=== PATIENT | female | born 1970 | race Two or more races ===

== ENCOUNTER 2019-07-16 19:06 | Inpatient (IN) | payer BC, OTHER ==
[~2019-07-16] VITALS: Ht 160 cm; Wt 153.3 kg
--- NOTE | 2019-07-16 19:28 | NUR ---
Note undone in EDM - 07/16/19 at 1933 by THAIS MARIA ISABEL FROM [facility]. TO ER BED 9. AAOX3. WEAK. SOB. C/O L BREAST WOUND BLEEDING. AREA UNDER L BREAST NOTED RED AND MASERATED WITH OPEN WOUND WITH SLIGHT SLOUGH. NOTED ACTIVE BLEEDING. ABDOMINAL PADS PLACED AND PRESSURE. PT REPORTS THAT THE INJURY HAPPENED 2 WEEKS AGO. PT REPORTS PAIN ON HANDS, BACK AND LEGS. PT HAS A F/C UPON ARRIVAL. BILAT LOWER EXT EDEMA NOTED. WITH BANDAGE ON R FOOT. AT BEDSIDE FOR EVAL/ PT PLACED ON MONITOR
[2019-07-16] MEDS ORDERED: IV NS 0.9% 1,000 ML BAG IV ONE (19:30)
[2019-07-16] MEDS ORDERED: MORPHINE SULFATE INJ 2 MG/ML DISP.SYRIN IV ONE (19:30)
--- NOTE | 2019-07-16 19:33 | NUR ---
MARIA ISABEL FROM [facility]. TO ER BED 9. AAOX3. WEAK. SOB. C/O L BREAST WOUND BLEEDING. AREA UNDER L BREAST NOTED RED AND MASERATED WITH OPEN WOUND WITH SLIGHT SLOUGH. NOTED ACTIVE BLEEDING. ABDOMINAL PADS PLACED AND PRESSURE. PT REPORTS THAT THE INJURY HAPPENED 2 WEEKS AGO. PT REPORTS PAIN ON HANDS, BACK AND LEGS. PT HAS A F/C UPON ARRIVAL. BILAT LOWER EXT EDEMA NOTED. WITH BANDAGE ON R FOOT. AT BEDSIDE FOR EVAL/ PT PLACED ON MONITOR
[2019-07-16] MEDS ORDERED: MORPHINE SULFATE INJ 2 MG/ML DISP.SYRIN ONE (19:35)
[2019-07-16] MEDS ORDERED: GELATIN SPONGE,ABSORBABLE 1 SPONGE SPONGE TP ONE (19:51)
[2019-07-16 19:55] LABS: BASOPHILS # (AUTO) 0.2 /CMM (0.0-0.2); BASOPHILS % (AUTO) 1.3 % (0.0-2.0); HEMATOCRIT 24 % (33-45); HEMOGLOBIN 8.2 g/dL (11.5-14.8); LYMPHOCYTES # (AUTO) 2.3 /CMM (0.8-4.8); LYMPHOCYTES % (AUTO) 20.6 % (20.0-44.0); MEAN CORPUSCULAR HGB CONC 34 g/dl (31.0-36.0); MEAN CORPUSCULAR VOLUME 100 fL (82-100); MONOCYTES # (AUTO) 1.6 /CMM (0.1-1.30); MONOCYTES % (AUTO) 14.3 % (2.0-12.0); NEUTROPHILS # (AUTO) 5.8 /CMM (1.8-8.9); NEUTROPHILS % (AUTO) 51.8 % (43.0-81.0); PLATELET COUNT (AUTO) 256 /CMM (150-450); RED BLOOD CELL COUNT(AUTO) 2.43 MIL/uL (4.0-5.2); WHITE BLOOD COUNT (AUTO) 11.2 K/uL (4.3-11.0)
[2019-07-16] MEDS ORDERED: ONDANSETRON HCL/PF 4 MG/2 ML VIAL ONE (20:00)
[2019-07-16] MEDS ORDERED: ONDANSETRON HCL/PF 4 MG/2 ML VIAL IV ONE (20:00)
[2019-07-16 20:04] LABS: ALBUMIN 2.7 g/dL (3.4-5.0); BILIRUBIN,TOTAL 1.6 mg/dL (0.2-1.0); CALCIUM, SERUM 9.4 mg/dL (8.5-10.1); CREATININE 3.3 mg/dL (0.6-1.3); POTASSIUM 5.8 mmol/L (3.5-5.1); TOTAL PROTEIN, SERUM 6.5 g/dL (6.4-8.2)
[2019-07-16] MEDS ORDERED: LIDOCAINE 1%-EPI 1:100,000 20 ML VIAL ONE (20:08)
[2019-07-16 20:10] VITALS: BP 102/82
--- NOTE | 2019-07-16 20:20 | NUR ---
AT BEDSIDE FOR SUTURE OF WOUND FOR BLEEDING CONTROL.
[2019-07-16] MEDS ORDERED: IV NS 0.9% 500 ML BAG IV ONE (20:30)
[2019-07-16] MEDS ORDERED: CLINDAMYCIN IV RTU IN D5W 900 MG/50 ML PIGGYBACK IV ONE (20:30)
--- NOTE | 2019-07-16 20:49 | NUR ---
PT BACK FROM CT.
[2019-07-16] MEDS ORDERED: ACETAMINOPHEN 325 MG TABLET PO ONE (21:00)
--- NOTE | 2019-07-16 21:26 | NUR ---
CALLED [facility], PAGED PRAVIN SAENZ NP
[2019-07-16 21:28] LABS: EOSINOPHILS % (MANUAL) 10 % (0-4); LYMPHOCYTES % (MANUAL) 20 % (16-48); MONOCYTES % (MANUAL) 9 % (0-11.0); NEUTROPHILS % (MANUAL) 58 (42-76); REACTIVE LYMPHOCYTES 3 % (0-0)
[2019-07-16] MEDS ORDERED: CLINDAMYCIN 900 MG/6 ML VIAL ONE (21:35)
[2019-07-16] MEDS ORDERED: IV NS 0.9% 1,000 ML IV PRN (21:38)
--- NOTE | 2019-07-16 21:50 | NUR ---
Bethany ravi in [facility] - 07/16/19 at 2154 by JOEY [phone] MARCY
[2019-07-16] MEDS ORDERED: MAGNESIUM HYDROXIDE 30 ML UDC PO PRN (22:00)
[2019-07-16] MEDS ORDERED: MAG HYDROX/AL HYDROX/SIMETH 30 ML UDC PO PRN (22:00)
--- NOTE | 2019-07-16 22:03 | NUR ---
report given to elma dotson for keyanna. pt to 208
--- NOTE | 2019-07-16 22:15 | NUR ---
PT TRANSPORTED TO UNIT WITH EMT AND RN AT BEDSIDE. NAD NOTED DURING TRANSPORT. PT STABLE FOR TRANSPORT TO UNIT.
[2019-07-16] MEDS ORDERED: VANCOMYCIN 1 GM in IV D5W 250 ML IV ONE (22:30)
[2019-07-16] MEDS ORDERED: VANCOMYCIN 1 GM VIAL ONE (22:58)
[2019-07-16] MEDS ORDERED: ALBU2.5V11 MC (23:29)
[2019-07-16] MEDS ORDERED: SODI15OR6 PO (23:29)
[2019-07-16] MEDS ORDERED: DOCU-141 PO (23:29)
[2019-07-16] MEDS ORDERED: MULT1TAB73 PO (23:29)
[2019-07-16] MEDS ORDERED: NEOM28.3 TP (23:29)
[2019-07-16] MEDS ORDERED: FERR325T23 PO (23:29)
[2019-07-16] MEDS ORDERED: NYST15PO4 TP (23:29)
[2019-07-16] MEDS ORDERED: DIPH-530 PO (23:29)
[2019-07-16] MEDS ORDERED: ACET325C7 PO (23:29)
[2019-07-16] MEDS ORDERED: HYDR-4384 PO (23:29)
[2019-07-16] MEDS ORDERED: ASCO500T9 PO (23:29)
[2019-07-16] MEDS ORDERED: ONDA4TAB5 PO (23:29)
[2019-07-16] MEDS ORDERED: ZINC OXIDE PO (23:29)
[2019-07-16] MEDS ORDERED: HEPA100D33 SQ (23:29)
--- NOTE | 2019-07-17 00:03 | NUR ---
RN MS ADMITTING NOTES RECEIVED PT FROM ER VIA MIGUEL, AWAKE ALERT ORIENTED X4, BREATHING EVEN AND UNLABORED ON ROOM AIR. COMPLAINING OF GENERALIZED PAIN WITH MOVEMENT. IV ACCESS ON THE L HAND 22G, WOUNDS PICTURED AND DOCUMENTED. BED IN LOWEST LOCKED POSITION, CALL LIGHT WITHIN REACH AT ALL TIME. WILL CONTINUE TO MONITOR FREQUENTLY
[2019-07-17] MEDS ORDERED: Medication Not On Formulary EA (Acetaminophen (Tylenol) 650 MG) PO PRN (01:00)
[2019-07-17] MEDS ORDERED: HYDROCODONE/APAP 5/325MG 1 EACH TABLET PO PRN (01:00)
[2019-07-17] MEDS ORDERED: DOCUSATE SODIUM 250 MG CAPSULE PO PRN (01:00)
--- NOTE | 2019-07-17 06:16 | NUR ---
RN MS CLOSING NOTES PT REMAINS AWAKE ALERT ORIENTED X4, BREATHING EVEN AND UNLABORED ON ROOM AIR. NO COMPLAINT OF PAIN OR DISCOMFORT AT THIS TIME. IV ACCESS ON THE L HAND 22G NS @75ML/HR . BED IN LOWEST LOCKED POSITION, CALL LIGHT WITHIN REACH AT ALL TIME. WILL ENDORSE TO DAY NURSE FOR JOSE ROBERTO.
[2019-07-17 06:18] LABS: BASOPHILS # (AUTO) 0.1 /CMM (0.0-0.2); BASOPHILS % (AUTO) 1.2 % (0.0-2.0); EOSINOPHILS % (AUTO) 14.6 % (0.0-6.0); HEMATOCRIT 22 % (33-45); HEMOGLOBIN 7.6 g/dL (11.5-14.8); LYMPHOCYTES # (AUTO) 2.1 /CMM (0.8-4.8); LYMPHOCYTES % (AUTO) 21.3 % (20.0-44.0); MEAN CORPUSCULAR HGB CONC 34 g/dl (31.0-36.0); MEAN CORPUSCULAR VOLUME 101 fL (82-100); MONOCYTES # (AUTO) 1.6 /CMM (0.1-1.30); MONOCYTES % (AUTO) 16.5 % (2.0-12.0); NEUTROPHILS # (AUTO) 4.5 /CMM (1.8-8.9); NEUTROPHILS % (AUTO) 46.4 % (43.0-81.0); PLATELET COUNT (AUTO) 223 /CMM (150-450); RED BLOOD CELL COUNT(AUTO) 2.18 MIL/uL (4.0-5.2); WHITE BLOOD COUNT (AUTO) 9.7 K/uL (4.3-11.0)
[2019-07-17] MEDS ORDERED: diphenhydrAMINE HCL 25 MG CAPSULE PO PRN (06:30)
[2019-07-17 06:38] LABS: APPEARANCE,URINE SL CLOUDY (CLEAR); BILIRUBIN,URINE NEGATIVE (NEGATIVE); BLOOD, URINE 2+ Ery/uL (NEGATIVE); COLOR,URINE YELLOW (YELLOW); KETONES,URINE NEGATIVE (NEGATIVE); LEUKOCYTE ESTERASE ,URINE 3+ (NEGATIVE); NITRITE, URINE NEGATIVE (NEGATIVE); PROTEIN,URINE NEGATIVE (NEGATIVE); UGLUCOSE NEGATIVE (NEGATIVE); UROBILINOGEN,URINE 0.2 EU/dL (0.2)
[2019-07-17 06:43] LABS: CALCIUM, SERUM 8.7 mg/dL (8.5-10.1); MAGNESIUM 2.7 mg/dL (1.8-2.4); PHOSPHORUS 4.7 mg/dL (2.5-4.9); POTASSIUM 5.5 mmol/L (3.5-5.1)
[2019-07-17 06:44] LABS: THYROID STIMULATING HORMONE 5.067 uIU/mL (0.358-3.74)
[2019-07-17 06:51] LABS: BACTERIA,URINE Many /HPF (None Seen); SQUAMOUS EPITHELIAL CELL,UR Moderate /HPF (None Seen); WBC,URINE 81-100 /HPF (0-3)
[2019-07-17] MEDS ORDERED: FEE PK DOSING 1 MIN EA MC ONE (06:59)
--- NOTE | 2019-07-17 07:44 | NUR ---
MS RN OPENING NOTES PATIENT IN BED ALERT AND ORIENTED X4. AFEBRILE WITH NO S/S O DISTRESS OBSERVED. BREATHING REGULAR AND UNLABORED IN ROOM AIR. LEFT HAND IV G20 INTACT AND PATENT, INFUSING WELL WITH NO BLEEDING OR S/S OF INFILTRATION/INFECTION. KUO CATH INTACT, DRAINING WELL WITH CLEAR YELLOW URINE, MODERATE IN AMOUNT. WILL CONTINUE TO MONITOR FOR POSSIBLE BLOOD TRANSFUSION TO KEEP HGB >8 AND MORNING LABS.
--- NOTE | 2019-07-17 08:00 | NUR ---
RN NOTES RECEIVED PATIENT IN THE BED A/O X3. PATIENT HAS MORBID OBESITY, TOTAL CARE, HAS NO ACUTE RESPIRATORY DISTRESS, V/S TAKEN STABLE. PATIENT WAS COMPLAINING OF PAIN GENERALIZED 9/10 PER PAIN SCALE. ALSO HAS GENERALIZED EDEMA, WOUND ON LEFT BREAST WITH STITCHES COVERED WITH DRY DRESSING. INFUSING NS AT LEFT HAND INTACT 100 ML/HR . ASSIST PATIENT TURN AND REPOSTION Q 2 HR. CONTINUED MONITORING.
[2019-07-17 08:29] VITALS: BP 102/52
[2019-07-17 10:03] LABS: HEMOGLOBIN 7.6 g/dL (11.5-14.8)
[2019-07-17] MEDS: FERROUS SULFATE (325 MG) 325 MG/TAB TABLET PO SCH (10:06)
[2019-07-17] MEDS: ASCORBIC ACID 500 MG TABLET PO SCH (10:06)
[2019-07-17] MEDS: HYDROCODONE/APAP 5/325MG 1 EACH TABLET PO PRN ×2 (10:07→15:18)
--- NOTE | 2019-07-17 10:07 | NUR ---
rn notes administered narco 5/325 mg po prn for generalized pain 07/18 per patient request, v/s taken bp102/52, p-103. continued monitoring.
[2019-07-17] MEDS: PANTOPRAZOLE 40 MG TABLET.DR PO SCH (10:10)
[2019-07-17] MEDS: NEOMY SULF/BACITRAC ZN/POLY 15 GM TUBE TP SCH ×2 (10:11→17:20)
[2019-07-17] MEDS: NYSTATIN TOP POWDER 15 GM BOTTLE TP SCH ×3 (10:11→17:20)
--- NOTE | 2019-07-17 11:47 | NUR ---
WOUND CARE CONSULT: PT PRESENTS WITH DRY RESOLVING BLISTER TO RT DORSAL FOOT, DRY SCAB PROXIMAL TO RT ANKLE, LEFT BREAST REDNESS WITH WOUND WHICH HAS A SUTURE, STAGE 2 ULCERS TO SACRUM AND LEFT HIP, LEFT ABDOMINAL REDNESS WITH MOIST SKIN, ALL PRESENT ON ADMISSION. RECOMMEND SURGICAL CONSULT. DR POON NOTIFIED OF CONSULT REQUEST. BARIMAX ETS AIR BED ORDERED. SKIN PROTECTION RECOMMENDATIONS DISCUSSED WITH NURSING STAFF. DEFER TO SURGICAL TEAM FOR WOUND TREATMENT PLAN. WILL SEE PRN. IN AGREEMENT WITH PLAN OF CARE. AYAAN REYES NOTED. Addendum: 07/17/19 at 1149 by JOHN EUGENE WNDNU Amended: Links added.
[2019-07-17] MEDS ORDERED: PIPERACILLIN /TAZOBACTAM 2.25 G in IV D5W 50 ML IV SCH (13:00)
--- NOTE | 2019-07-17 13:00 | NUR ---
RN NOTES MEDICATION WERE ADMINISTERED FOR PAIN EFFECTIVE, SEEN PATIENT BY WOUND CAROLYNE ULLOA, AND WOUND NURSE, ADMINISTERED SCHEDULED MEDICATION, ASSIST PATIENT TURN AND REPOSTION Q 2 HR, DRESSING CHANGED. CONTINUED MONITORING.
[2019-07-17 13:10] LABS: CREATININE, URINE 120.5 MG/DL (30.0-125.0); URINE SODIUM, RANDOM < 5 mmol/l (40-220); URINE TOTAL PROTEIN 32.6 mg/dL (0-11.9)
[2019-07-17] MEDS: IV NS 0.9% 1,000 ML IV PRN (14:11)
[2019-07-17] MEDS: CLOTRIMAZOLE 1% 15 GM TUBE TP SCH ×2 (14:13→17:21)
[2019-07-17] MEDS: Z GUARD REMEDY 2 OZ OINT TP PRN (14:13)
--- NOTE | 2019-07-17 15:18 | NUR ---
RN NOTES ADMINISTERED NARCO 5/325 PO PRN FOR GENERALIZED PAIN 06/17 PER PATIENT REQUEST, V/S TAKEN BP-103/50, 98, R-19, CONTINUED MONITORING.
[2019-07-17 17:16] VITALS: BP 103/47
--- NOTE | 2019-07-17 18:30 | NUR ---
RN NOTES SEEN PATIENT BY FOOT Dr. ALVARADO, AND PACKAGING MECHANIC Dr LEONARD. MEDICATION WERE ADMINISTERED FOR PAIN EFFECTIVE. ASSIST TURN AND REPOSITION 2 HR, ADMINISTERED SCHEDULED MEDICATION, F/C DRAMING YELLOW OUTPUT, DVT PUMP ON INFUSIN NS AT 75 ML/HR ON LEFT HAND INTACT. CALL LIGHT WITHIN TO REACH. GET BERIMAXX II BED AT THIS TIME WILL TRANSFER PATIENT ON IT. ENDORSED ONCOMING NURSE FOLLOW PLAN OF CARE.
--- NOTE | 2019-07-17 19:15 | NUR ---
MS/RN OPENING NOTES PT RECEIVED RESTING COMFORTABLY IN BED. A/OX4. ON ROOM AIR, BREATHING EVEN AND UNLABORED. DENIES SOB AND PAIN AT THIS TIME. IV TO LEFT HAND RUNNING IVF ORDERED. KUO IN PLACE DRAINING TO GRAVITY. HOB ELEVATED. BILAT. UPPER SIDE RAILS IN PLACE. BED IN LOW/LOCKED POSITION WITH CALL LIGHT IN REACH. WILL CONTINUE TO MONITOR
--- NOTE | 2019-07-17 19:59 | NUR ---
MS/RN NOTES DR. GIRON AT BEDSIDE FOR ASSESSMENT. WITH VERBAL ORDERS FOR GABAPENTIN 300MG BID STARTING TOMORROW AND GABAPENTIN 300MG ONCE TONIGHT. ORDERS READBACK FOR VERIFICATION
[2019-07-17 20:00] VITALS: BP 94/44
[2019-07-17] MEDS ORDERED: GABAPENTIN 300 MG CAPSULE PO ONE (20:00)
[2019-07-17] MEDS: CEFEPIME 1 GM in IV D5W 50 ML IV SCH (21:26)
--- NOTE | 2019-07-17 22:06 | NUR ---
MS/RN NOTES PT MOVED TO BARIATRIC BED
[2019-07-17] MEDS ORDERED: VANCOMYCIN 1 GM in IV D5W 250 ML IV SCH (23:00)
[2019-07-18] MEDS: IV NS 0.9% 1,000 ML IV PRN ×2 (06:30→18:13)
[2019-07-18 06:36] LABS: BASOPHILS # (AUTO) 0.2 /CMM (0.0-0.2); BASOPHILS % (AUTO) 1.8 % (0.0-2.0); EOSINOPHILS % (AUTO) 16.7 % (0.0-6.0); HEMATOCRIT 23 % (33-45); HEMOGLOBIN 7.6 g/dL (11.5-14.8); LYMPHOCYTES # (AUTO) 2.5 /CMM (0.8-4.8); LYMPHOCYTES % (AUTO) 23.1 % (20.0-44.0); MEAN CORPUSCULAR HGB CONC 34 g/dl (31.0-36.0); MEAN CORPUSCULAR VOLUME 102 fL (82-100); MONOCYTES # (AUTO) 1.7 /CMM (0.1-1.30); MONOCYTES % (AUTO) 15.8 % (2.0-12.0); NEUTROPHILS # (AUTO) 4.7 /CMM (1.8-8.9); NEUTROPHILS % (AUTO) 42.6 % (43.0-81.0); PLATELET COUNT (AUTO) 232 /CMM (150-450); RED BLOOD CELL COUNT(AUTO) 2.24 MIL/uL (4.0-5.2)
[2019-07-18 06:52] LABS: ALBUMIN 2.7 g/dL (3.4-5.0); BILIRUBIN,TOTAL 1.6 mg/dL (0.2-1.0); CALCIUM, SERUM 8.6 mg/dL (8.5-10.1); CREATININE 3.3 mg/dL (0.6-1.3); MAGNESIUM 2.6 mg/dL (1.8-2.4); POTASSIUM 5.5 mmol/L (3.5-5.1); TOTAL PROTEIN, SERUM 6.3 g/dL (6.4-8.2)
--- NOTE | 2019-07-18 06:53 | NUR ---
MS/RN CLOSING NOTES PT ASLEEP, A/OX4. PLACED ON 2LPM O2 VIA NC FOR SOB AND BREATHING TX GIVEN. BREATHING NOW IS EVEN AND UNLABORED. IN NO ACUTE DISTRESS. DENIES PAIN AT THIS TIME. KUO IN PLACE AND DRAINING TO GRAVITY. IV TO LEFT HAND PATENT AND INTACT RUNNING IVF ORDERED. NO SIGNIFICANT CHANGES OVERNIGHT. WOUND CARE PROVIDED ORDERED. BED IN LOW/LOCKED POSITION WITH CALL LIGHT IN REACH. HOB ELEVATED FOR MAXIMAL LUNG EXPANSION. SIDE RAILS UPX3. ALL NEEDS MET AND ATTENDED. WILL ENDORSE TO DAY SHIFT RN JOSE ROBERTO.
[2019-07-18] MEDS: PANTOPRAZOLE 40 MG TABLET.DR PO SCH (07:30)
--- NOTE | 2019-07-18 07:48 | NUR ---
MS RN NOTES PATIENT RECEIVED RESTING INSIDE ROOM. AWAKE, ALERT AND ORIENTED X 4, VERBALLY RESPONSIVE AND RESPONDS TO VERBAL AND TACTILE STIMULI. NO ACUTE DISTRESS NOTED AT THIS TIME. PATIENT NPO AT THIS TIME. AWAITING US ABD, PLACED CALL TO ULTRASOUND DEPT TO OBTAINED SCHEDULED AND LEFT MESSAGE. KUO CATH IN PLACE WITH YELLOW URINE OUTPUT NOTED ON COLLECTING BAG. SAFETY PRECAUTIONS IN PLACE. WILL CONTINUE TO MONITOR. BED LOCKED AND IN LOW POSITION. BILATERAL UPPER SIDE RAILS UP AND LOCKED. MAINTAINED ASPIRATION PRECAUTIONS. CALL LIGHT WITHIN EASY REACH
[2019-07-18 08:00] VITALS: BP 102/48
[2019-07-18] MEDS: GABAPENTIN 300 MG CAPSULE PO SCH ×2 (09:00→16:33)
[2019-07-18] MEDS: FERROUS SULFATE (325 MG) 325 MG/TAB TABLET PO SCH (09:00)
[2019-07-18] MEDS: ASCORBIC ACID 500 MG TABLET PO SCH (09:00)
--- NOTE | 2019-07-18 09:18 | NUR ---
MS RN NOTES US TECH AT BEDSIDE
--- NOTE | 2019-07-18 09:28 | NUR ---
MS RN NOTES PLACED CALL TO LAB FOR SPECIMEN EMERGENCY DEPARTMENT AIDE
[2019-07-18 09:40] LABS: EOSINOPHILS % (MANUAL) 18 % (0-4); LYMPHOCYTES % (MANUAL) 28 % (16-48); MONOCYTES % (MANUAL) 11 % (0-11.0); NEUTROPHILS % (MANUAL) 43 (42-76)
[2019-07-18] MEDS: CLOTRIMAZOLE 1% 15 GM TUBE TP SCH ×2 (10:02→16:39)
[2019-07-18] MEDS: NEOMY SULF/BACITRAC ZN/POLY 15 GM TUBE TP SCH ×2 (10:02→16:39)
[2019-07-18] MEDS: NYSTATIN TOP POWDER 15 GM BOTTLE TP SCH ×3 (10:02→16:39)
--- NOTE | 2019-07-18 11:29 | NUR ---
MS RN NOTES PATIENT SEEN AND EXAMINED BY DR ERAZO. MADE AWARE OF PATIENT RECORDS FROM [facility] ARE IN PATIENT'S CHART. ALSO MADE AWARE THAT US ABD IS ALREADY DONE AND RESULTED. WITH OK FROM DR ERAZO TO RESUME PREVIOUS DIET. ORDER NOTED AND CARRIED OUT. WILL CONTINUE TO MONITOR
[2019-07-18] MEDS: HYDROCODONE/APAP 5/325MG 1 EACH TABLET PO PRN (14:58)
[2019-07-18 16:00] VITALS: BP 99/40
[2019-07-18] MEDS: LACTOBACILLUS RHAMNOSUS GG 1 EACH CAP.SPRINK PO SCH (16:33)
--- NOTE | 2019-07-18 18:53 | NUR ---
MS RN NOTES PATIENT RESTING INSIDE ROOM. AWAKE, ALERT AND ORIENTED X 4, VERBALLY RESPONSIVE AND RESPONDS TO VERBAL AND TACTILE STIMULI. NO ACUTE DISTRESS. NO C/O PAIN. PATIENT KEPT CLEAN, DRY AND COMFORTABLE. PATIENT KEPT CLEAN, DRY AND COMFORTABLE. KUO CATHETER IN PLACE WITH DARK YELLOW URINE OUTPUT NOTED ON COLLECTING BAG. WILL ENDORSE TO INCOMING SHIFT FOR JOSE ROBERTO. BED LOCKED AND IN LOW POSITION. BILATERAL UPPER SIDE RAILS UP AND LOCKED. CALL LIGHT WITHIN EASY REACH
[2019-07-18 19:00] VITALS: BP 87/37
[2019-07-18] MEDS: ACETAMINOPHEN 325 MG TABLET PO PRN (19:40)
[2019-07-18 19:47] LABS: CREATININE, URINE 131.5 MG/DL (30.0-125.0); URINE SODIUM, RANDOM < 5 mmol/l (40-220); URINE TOTAL PROTEIN 34.7 mg/dL (0-11.9)
--- NOTE | 2019-07-18 19:52 | NUR ---
RN OPENING NOTES RECEIVED REPORT FROM PAMELA MURPHY. PATIENT A/A/O X3, ABLE TO VERBALIZE NEEDS. BREATHING EVEN & UNLABORED, TOLERATING O2 @ 2LPM VIA NC. DENIES ANY SOB OR DIFFICULTY BREATHING. RADIAL PULSES PRESENT. LEFT HAND IV #20 INTACT & PATENT W/ DRESSING CDI & IVF NS INFUSING WELL @ 100 ML/HR. DENIES ANY PAIN OR DISCOMFORT @ THIS TIME. SAFETY MEASURES IN PLACE W/ SIDE RAILS UP & BED ALARM ON. CALL LIGHT PLACED WITHIN REACH & INSTRUCTED TO CALL FOR ASSISTANCE. WILL CONTINUE TO MONITOR.
--- NOTE | 2019-07-18 19:55 | NUR ---
RN NOTES PRN TYLENOL GIVEN FOR FEVER.
[2019-07-18 20:00] VITALS: BP 87/37
[2019-07-18 20:03] VITALS: BP_SYST 166; BP_SYST 87; BP_DIAS 37; BP_DIAS 91
[2019-07-18 20:06] LABS: APPEARANCE,URINE CLOUDY (CLEAR); BILIRUBIN,URINE NEGATIVE (NEGATIVE); BLOOD, URINE 3+ Ery/uL (NEGATIVE); COLOR,URINE YELLOW (YELLOW); KETONES,URINE NEGATIVE (NEGATIVE); LEUKOCYTE ESTERASE ,URINE 3+ (NEGATIVE); NITRITE, URINE NEGATIVE (NEGATIVE); PH,URINE 5.5 (5.0-8.0); PROTEIN,URINE NEGATIVE (NEGATIVE); UGLUCOSE NEGATIVE (NEGATIVE); UROBILINOGEN,URINE 0.2 EU/dL (0.2)
[2019-07-18 20:15] VITALS: BP 92/42
[2019-07-18] MEDS: ALBUTEROL FS 2.5 MG/3 ML VIAL.NEB NEB PRN (20:18)
--- NOTE | 2019-07-18 20:30 | NUR ---
RN NOTES RE CHECKED TEMP AFTER PRN TYLENOL GIVEN & COOLING MEASURES IN PLACE. TEMP = 99.2.
[2019-07-18 20:31] LABS: BACTERIA,URINE Many /HPF (None Seen); RBC,URINE 21-50 /HPF (0-2); SQUAMOUS EPITHELIAL CELL,UR Few /HPF (None Seen); WBC,URINE 51-80 /HPF (0-3)
[2019-07-18 20:32] LABS: URINE AMORPHOUS URATE Moderate /HPF (None Seen)
[2019-07-18] MEDS: CEFEPIME 1 GM in IV D5W 50 ML IV SCH (20:42)
[2019-07-18 21:08] LABS: EOSINOPHIL,URINE Rare
[2019-07-18] MEDS ORDERED: CLINDAMYCIN 900 MG/6 ML VIAL ONE (21:33)
[2019-07-18] MEDS: CLINDAMYCIN 600 MG in IV D5W 50 ML IV SCH (21:56)
[2019-07-19] VITALS (8 sets, daily range): BP systolic 74–96; BP diastolic 25–53
[2019-07-19] MEDS ORDERED: CLINDAMYCIN 900 MG/6 ML VIAL ONE (05:21)
[2019-07-19] MEDS: CLINDAMYCIN 600 MG in IV D5W 50 ML IV SCH ×2 (05:39→12:20)
[2019-07-19 06:12] LABS: BASOPHILS # (AUTO) 0.1 /CMM (0.0-0.2); BASOPHILS % (AUTO) 1.2 % (0.0-2.0); EOSINOPHILS % (AUTO) 18.9 % (0.0-6.0); HEMATOCRIT 22 % (33-45); HEMOGLOBIN 7.3 g/dL (11.5-14.8); LYMPHOCYTES # (AUTO) 2.5 /CMM (0.8-4.8); LYMPHOCYTES % (AUTO) 22.7 % (20.0-44.0); MEAN CORPUSCULAR HGB CONC 33 g/dl (31.0-36.0); MEAN CORPUSCULAR VOLUME 103 fL (82-100); MONOCYTES # (AUTO) 1.9 /CMM (0.1-1.30); NEUTROPHILS # (AUTO) 4.4 /CMM (1.8-8.9); NEUTROPHILS % (AUTO) 40.2 % (43.0-81.0); PLATELET COUNT (AUTO) 230 /CMM (150-450); RED BLOOD CELL COUNT(AUTO) 2.13 MIL/uL (4.0-5.2)
[2019-07-19 06:48] LABS: ALBUMIN 2.7 g/dL (3.4-5.0); BILIRUBIN,TOTAL 1.5 mg/dL (0.2-1.0); CALCIUM, SERUM 8.7 mg/dL (8.5-10.1); CREATININE 3.5 mg/dL (0.6-1.3); MAGNESIUM 2.6 mg/dL (1.8-2.4); PHOSPHORUS 5.6 mg/dL (2.5-4.9); POTASSIUM 5.4 mmol/L (3.5-5.1); TOTAL PROTEIN, SERUM 6.4 g/dL (6.4-8.2)
--- NOTE | 2019-07-19 07:46 | NUR ---
MS RN NOTES PATIENT RECEIVED RESTING INSIDE ROOM. SLEEPING, EASILY AROUSED THROUGH VERBAL AND TACTILE STIMULI. BREATHING EVEN AND UNLABORED. DENIES ANY PAIN OR DISCOMFORT AT THIS TIME. IV IN PLACE AND INTACT. SAFETY PRECAUTIONS IN PLACE. MAINTAINED ASPIRATION PRECAUTIONS. WILL CONTINUE TO MONITOR. BED LOCKED AND IN LOW POSITION. BILATERAL UPPER SIDE RAILS UP AND LOCKED. CALL LIGHT WITHIN EASY REACH
[2019-07-19 08:16] LABS: CANCER AG, 15-3 17.5 U/mL (0.0-25.0)
[2019-07-19] MEDS: LACTOBACILLUS RHAMNOSUS GG 1 EACH CAP.SPRINK PO SCH ×2 (08:43→17:02)
[2019-07-19] MEDS: ASCORBIC ACID 500 MG TABLET PO SCH (08:43)
[2019-07-19] MEDS: GABAPENTIN 300 MG CAPSULE PO SCH ×2 (08:43→17:02)
[2019-07-19] MEDS: PANTOPRAZOLE 40 MG TABLET.DR PO SCH (08:43)
[2019-07-19] MEDS: NEOMY SULF/BACITRAC ZN/POLY 15 GM TUBE TP SCH ×2 (08:44→17:11)
[2019-07-19] MEDS: CLOTRIMAZOLE 1% 15 GM TUBE TP SCH ×2 (08:44→17:11)
[2019-07-19] MEDS: NYSTATIN TOP POWDER 15 GM BOTTLE TP SCH ×3 (08:45→17:11)
[2019-07-19] MEDS: ALBUTEROL FS 2.5 MG/3 ML VIAL.NEB NEB PRN ×3 (10:13→21:33)
--- NOTE | 2019-07-19 11:14 | NUR ---
MS RN NOTES DR HAYDEN MELISSA PRESENT AT UNIT. MADE AWARE OF RD RECOMMENDATION OF DIET CHANGE TO 2G Na AND GAVE OK. ALSO WITH NEW ORDER TO DC NS IVF. ORDERS NOTED AND CARRIED OUT. PATIENT MADE AWARE AND VERBALIZED UNDERSTANDING. WILL CONTINUE TO MONITOR
--- NOTE | 2019-07-19 11:15 | NUR ---
MS RN NOTES PATIENT SEEN AND EXAMINED BY DR ERAZO. WITH PLAN FOR LEFT BREAST PUNCH BIOPSY. VERIFIED INFORMED CONSENT OBTAINED BY MD FROM PATIENT AND WITNESSED BY LICENSED STAFF. WILL OBTAINED SPECIMEN CONTAINER FROM PATHOLOGY FOR PROCEDURE. WILL CONTINUE TO MONITOR
[2019-07-19] MEDS ORDERED: SODIUM POLYSTYRENE SULF. PWD 15 GM UDC PO ONE (11:30)
[2019-07-19 13:07] LABS: *SPE A/G RATIO 0.8 (0.7-1.7); *SPE ALBUMIN 2.7 g/dL (2.9-4.4); *SPE ALPHA-1-GLOBULIN 0.4 g/dL (0.0-0.4); *SPE ALPHA-2-GLOBULIN 0.6 g/dL (0.4-1.0); *SPE BETA GLOBULIN 1.3 g/dL (0.7-1.3); *SPE GLOBULIN, TOTAL 3.3 g/dL (2.2-3.9); *SPE M-SPIKE Not Observed g/dL (Not Observed); PTH, INTACT 88 pg/mL (15-65)
[2019-07-19] MEDS: SOD FERRIC GLUC 125 MG in IV NS 0.9% 100 ML IV SCH (13:39)
--- NOTE | 2019-07-19 16:59 | NUR ---
MS RN NOTES [facility] WITH REPORT THAT PATIENT IS POSITIVE FOR VRE URINE. VERIFIED URINE CULTURE AND SHOWS PATIENT IS ALSO POSITIVE FOR ESBL. INITIATED ISOLATION PRECAUTIONS. PATIENT MADE AWARE AND VERBALIZED UNDERSTANDING. PLACED CALL TO [facility] AND REQUESTED FOR ISOLATION CART. WILL CONTINUE TO MONITOR
[2019-07-19] MEDS: MEROPENEM 500 MG in IV NS 0.9% 50 ML IV SCH (17:02)
[2019-07-19] MEDS: LINEZOLID RTU BAG 600 MG in PREMIX 1 EA IV SCH (17:49)
--- NOTE | 2019-07-19 18:15 | NUR ---
MS RN NOTES AFTER DINNER. PATIENT REPORTED FEELING CHEST/MID EPIGASTRIC DISCOMFORT WITH PAIN LEVEL OF 6/10, RADIATING TO LEFT JAW. VS TAKEN WITH RESULT OF 74/34, HR 99, T 98.1, R 22, O2 98% IN 3L/MIN VIA NC. ELEVATED BLE. PLACED CALL TO [facility] AND SPOKE WITH HANSA CHATMAN MESSAGE FOR DR ERAZO. WILL CONTINUE TO MONITOR
--- NOTE | 2019-07-19 18:30 | NUR ---
MS RN NOTES PLACED CALL TO [facility] TO FOLLOW-UP WITH DR ERAZO, SPOKE WITH LURDES. LEFT MESSAGE. WILL CONTINUE TO FOLLOW-UP
--- NOTE | 2019-07-19 18:48 | NUR ---
MS RN NOTES RECEIVED CALL BACK FROM DR ERAZO WITH ORDERS FOR STAT EKG AND STAT CXR. ALSO WITH NEW ORDERS TO RECHECK BP, IF SBP REMAINS BELOW 90, RESTART IV NS AT 100CC/HR. RECHECKED BP WITH RESULT OF 92/44, HR 98. PLACED CALL TO RT FOR EKG AND RADIOLOGY FOR XRAY. WILL CONTINUE TO MONITOR
--- NOTE | 2019-07-19 18:52 | NUR ---
MS RN NOTES YACHT RIGGER AT BEDSIDE
[2019-07-19] MEDS ORDERED: IV NS 0.9% 500 ML IV ONE (20:00)
--- NOTE | 2019-07-19 20:00 | NUR ---
MS RN NOTE: PATIENT RESTING IN BED, NO ACUTE DISTRESS NOTED. BREATHING EVEN AND UNLABORED, NO SOB NOTED, ON OXYGEN 3 LPM WITH O2 SAT AT 96%. PATIENT NOTED WITH BLOOD PRESSURE IN LOW TREND. BLOOD PRESSURE 78/25, HR 98. BLOOD PRESSURE RECHECKED ON OTHER ARM STILL LOW BLOOD PRESSURE OF 75/21. CALLED MARKETING INTELLIGENCE MANAGER MD AND SPOKE TO DR. CORNEJO. INFORMED ABOUT LOW BLOOD PRESSURE. PATIENT ALREADY GOT STAT EKG AND CHEST XRAY AT CHANGE OF SHIFT. RECEIVED ORDERS FOR NS 500ML BOLUS ONCE AND TRANSFER TO TELE. INFORMED NURSING WOUND CARE RN AND PATIENT TO BE TRANSFERRED TO ROOM 304-1. ORDERS NOTED AND CARRIED OUT. WILL GET PATIENT TO TRANSFER.
--- NOTE | 2019-07-19 20:00 | NUR ---
NURSING CALCULATING MACHINE OPERATOR PROVIDED ROOM# 304 TO MOVE PT
--- NOTE | 2019-07-19 20:40 | NUR ---
FOREST NURSERY SUPERVISOR NOTES RECEIVED PT VIA TRANSFER FROM MS-2, FROM JEFFREY PEDRAZA. PT ON TELE MONITORING AT SINUS 95. PT BP @ 90/33 STILL INFUSING NS BOLUS. CALL LIGHT WITHIN REACH. WILL CONTINUE TO MONITOR.
--- NOTE | 2019-07-19 20:45 | NUR ---
MS RN NOTE: REPORT GIVEN TO HERMINIA, PATIENT MEDICATIONS AND BELONGS TRANSFERRED UP TO 304-1 ON OXYGEN 3 LPM VIA DE ON ACLS PROTOCOL.
--- NOTE | 2019-07-19 22:44 | NUR ---
SORTING AND FOLDING SUPERVISOR NOTES PT BP 86/48 HR -103 RR - 24 TEMP 98.1, O2 - 96%, PT COMPLAINS OF PAIN IN CHEST, HANDS, BACK, LEGS, AND LEFT BREAST WELL SLEEPY/TIRED DIFFERENT THAN SHE HAS FELT BEFORE, AND FEELS WEIRD. MD MADE AWARE WITH NO NEW ORDERS, TO CONTINUE TO MONITOR MD TO COME AND SEE PT.
[2019-07-20] VITALS (9 sets, daily range): BP systolic 81–111; BP diastolic 36–57
[2019-07-20] MEDS: MEROPENEM 500 MG in IV NS 0.9% 50 ML IV SCH ×2 (05:39→17:32)
[2019-07-20] MEDS: LINEZOLID RTU BAG 600 MG in PREMIX 1 EA IV SCH ×2 (06:11→18:10)
[2019-07-20 06:20] LABS: BASOPHILS # (AUTO) 0.1 /CMM (0.0-0.2); BASOPHILS % (AUTO) 0.8 % (0.0-2.0); EOSINOPHILS % (AUTO) 20.5 % (0.0-6.0); HEMATOCRIT 21 % (33-45); HEMOGLOBIN 7.1 g/dL (11.5-14.8); LYMPHOCYTES # (AUTO) 2.1 /CMM (0.8-4.8); LYMPHOCYTES % (AUTO) 20.2 % (20.0-44.0); MEAN CORPUSCULAR HGB CONC 34 g/dl (31.0-36.0); MEAN CORPUSCULAR VOLUME 103 fL (82-100); MONOCYTES # (AUTO) 1.8 /CMM (0.1-1.30); MONOCYTES % (AUTO) 16.9 % (2.0-12.0); NEUTROPHILS # (AUTO) 4.4 /CMM (1.8-8.9); NEUTROPHILS % (AUTO) 41.6 % (43.0-81.0); PLATELET COUNT (AUTO) 232 /CMM (150-450); RED BLOOD CELL COUNT(AUTO) 2.03 MIL/uL (4.0-5.2); WHITE BLOOD COUNT (AUTO) 10.5 K/uL (4.3-11.0)
[2019-07-20 06:24] LABS: CALCIUM, SERUM 8.6 mg/dL (8.5-10.1); CREATININE 4.1 mg/dL (0.6-1.3)
[2019-07-20 07:30] LABS: EOSINOPHILS % (MANUAL) 17 % (0-4); LYMPHOCYTES % (MANUAL) 21 % (16-48); MONOCYTES % (MANUAL) 18 % (0-11.0); NEUTROPHILS % (MANUAL) 44 (42-76)
--- NOTE | 2019-07-20 07:38 | NUR ---
LANDSCAPE PHOTOGRAPHER NOTE PT IN BED SLEEPING BUT EASILY AWOKEN VERBALLY OR BY TOUCH. PT A/O X3 AND ABLE TO MAKE NEEDS KNOWN. RESPIRATIONS EVEN AND UNLABORED WITH NO S/S OF ACUTE DISTRESS OR SOB NOTED THROUGHOUT SHIFT. NO COMPLAINTS OF PAIN AT THIS TIME. PT ON 02 3 LPM WITH O2 SAT AT 98%. PT ON TELE MONITORING AT SR 90S. TURNED PT Q2 HOURS. SAFETY MEASURES IN PLACE WITH BED IN LOWEST LOCKED POSITION WITH SIDE RAILS UP X2. CALL LIGHT WITHIN REACH. WILL CONTINUE TO MONITOR.
--- NOTE | 2019-07-20 07:40 | NUR ---
DISPATCHER CHIEF OIL NOTES WILL ENDORSE TO ONCOMING NURSE FOR JOSE ROBERTO.
[2019-07-20] MEDS: ALBUTEROL FS 2.5 MG/3 ML VIAL.NEB NEB PRN ×2 (07:49→19:32)
[2019-07-20] MEDS: PANTOPRAZOLE 40 MG TABLET.DR PO SCH (08:37)
[2019-07-20] MEDS: ASCORBIC ACID 500 MG TABLET PO SCH (08:37)
[2019-07-20] MEDS: LACTOBACILLUS RHAMNOSUS GG 1 EACH CAP.SPRINK PO SCH ×2 (08:37→17:32)
[2019-07-20] MEDS: NEOMY SULF/BACITRAC ZN/POLY 15 GM TUBE TP SCH ×2 (09:53→17:33)
[2019-07-20] MEDS: NYSTATIN TOP POWDER 15 GM BOTTLE TP SCH ×3 (09:53→17:34)
[2019-07-20] MEDS: GABAPENTIN 300 MG CAPSULE PO SCH ×2 (09:54→17:32)
[2019-07-20] MEDS: CLOTRIMAZOLE 1% 15 GM TUBE TP SCH ×2 (09:54→17:34)
[2019-07-20] MEDS: HYDROCODONE/APAP 5/325MG 1 EACH TABLET PO PRN (10:27)
[2019-07-20] MEDS ORDERED: LIDOCAINE 1% INJ 50 ML MDV IJ ONE (11:30)
[2019-07-20] MEDS: SOD FERRIC GLUC 125 MG in IV NS 0.9% 100 ML IV SCH (13:35)
[2019-07-20] MEDS: ONDANSETRON HCL/PF 4 MG/2 ML VIAL IVP PRN (17:45)
--- NOTE | 2019-07-20 18:52 | NUR ---
SUBWAY CAR REPAIRER SHIFT SUMMARY PT. A/OX4. NO ACUTE DISTRESS OR SOB NOTED. 3LPM O2 VIA NC. BREATHING TX GIVEN PRN. TELE MONITOR ATTACHED, SINUS RHYTHM HR 90s. KUO CATHETER DRAINED 50mL TOTAL THIS SHIFT, MD AWARE. NO BOWEL MOVEMENT THIS SHIFT, ENDORSE STOOL SAMPLE. WOUND CARE COMPLETED ORDERED, TURNED Q2HR. LEFT BREAST BIOPSY COMPLETED THIS SHIFT BY DR. ERAZO, SPECIMEN SENT TO PATHOLOGY, PRESSURE DRESSING APPLIED, NO STITCHES, NO BLEEDING. BP ON RIGHT ARM 104/57.
--- NOTE | 2019-07-20 20:00 | NUR ---
RN NOTES received pt. awake on bed, a/ox4, morbid obesity, sr on tale monitor hr86, , no pain noted, no sob, on big boy bed, siderailsupx2, continue to monitor
[2019-07-21] VITALS (8 sets, daily range): BP systolic 89–106; BP diastolic 39–99
[2019-07-21] MEDS: LINEZOLID RTU BAG 600 MG in PREMIX 1 EA IV SCH ×2 (04:09→16:23)
[2019-07-21] MEDS: MEROPENEM 500 MG in IV NS 0.9% 50 ML IV SCH ×2 (06:02→17:55)
[2019-07-21 06:12] LABS: BASOPHILS # (AUTO) 0.1 /CMM (0.0-0.2); BASOPHILS % (AUTO) 0.8 % (0.0-2.0); EOSINOPHILS % (AUTO) 22.7 % (0.0-6.0); HEMATOCRIT 22 % (33-45); LYMPHOCYTES # (AUTO) 1.9 /CMM (0.8-4.8); LYMPHOCYTES % (AUTO) 16.7 % (20.0-44.0); MEAN CORPUSCULAR HGB CONC 32 g/dl (31.0-36.0); MEAN CORPUSCULAR VOLUME 104 fL (82-100); MONOCYTES # (AUTO) 1.7 /CMM (0.1-1.30); MONOCYTES % (AUTO) 15.1 % (2.0-12.0); NEUTROPHILS # (AUTO) 5.1 /CMM (1.8-8.9); NEUTROPHILS % (AUTO) 44.7 % (43.0-81.0); PLATELET COUNT (AUTO) 257 /CMM (150-450); RED BLOOD CELL COUNT(AUTO) 2.08 MIL/uL (4.0-5.2); WHITE BLOOD COUNT (AUTO) 11.4 K/uL (4.3-11.0)
[2019-07-21 06:25] LABS: HEMOGLOBIN 6.9 g/dL (11.5-14.8)
[2019-07-21 06:40] LABS: CREATININE 4.9 mg/dL (0.6-1.3); POTASSIUM 5.3 mmol/L (3.5-5.1)
--- NOTE | 2019-07-21 06:40 | NUR ---
RN NOTES LAB CALLED AND INFORMED ME THAT PT. H&H IS 6.07/30.. CALLED DR CORNEJO AND INFORMED HIM THE RESULT OF PT'S H&H.. DR. CORNEJO WANTS THE MD TO CHECK ON THE PT. FIRST. WILL ENDORSED THE TO THE DAYSMEFT NURSE
--- NOTE | 2019-07-21 07:00 | NUR ---
RN NOTES SLEEPING BUT AROUSABLE, NOT IN DISTRESS/ F/C DRAINING SMALL AMOUNT OF URINE, ENDORSED TO DAYSHIFT NURSE .. EVEN YESTERDAY PT.'S F/C IS DRAINING SMALL AMOUNT, MORNING CARE RENDERED. PT, NEEDS ATTENDED
[2019-07-21 07:30] LABS: EOSINOPHILS % (MANUAL) 18 % (0-4); LYMPHOCYTES % (MANUAL) 18 % (16-48); MONOCYTES % (MANUAL) 22 % (0-11.0); MYELOCYTES % 1 % (0-0); NEUTROPHILS % (MANUAL) 41 (42-76)
--- NOTE | 2019-07-21 07:33 | NUR ---
MS RN OPENING NOTES RECEIVED PATIENT FROM NOC SHIFT, ALERT AND ORIENTED X 3. VERBALLY RESPONSIVE. BREATHING REGULAR AND UNLABORED ON 3L/MIN OXYGEN VIA NASAL CANNULA. LEFT HAND IV LINE G20 INTACT AND PATENT INFUSING WELL WITH NO BLEEDING OR S/S OF INFILTRATION/INFECTION NOTED. ON IV ATB'S ZYVOX AND MERREM FOR CELLULITIS WITH NO ADVERSE REACTIONS NOTED. KUO CATHETER INTACT AND PATENT DRAINING TEA COLORED URINE IN SCANT AMOUNT. ON LEILA MATTRESS FOR SACRAL WOUND MANAGEMENT. WILL MONITOR VITAL SIGNS, LABS AND FOR POSSIBLE HEMODIALYSIS.
[2019-07-21] MEDS: LACTOBACILLUS RHAMNOSUS GG 1 EACH CAP.SPRINK PO SCH ×2 (08:06→16:37)
[2019-07-21] MEDS: PANTOPRAZOLE 40 MG TABLET.DR PO SCH (08:07)
[2019-07-21] MEDS: GABAPENTIN 300 MG CAPSULE PO SCH ×2 (08:07→16:37)
[2019-07-21] MEDS: ASCORBIC ACID 500 MG TABLET PO SCH (08:07)
[2019-07-21] MEDS: CLOTRIMAZOLE 1% 15 GM TUBE TP SCH ×2 (08:15→16:33)
[2019-07-21] MEDS: NEOMY SULF/BACITRAC ZN/POLY 15 GM TUBE TP SCH ×2 (08:15→16:33)
[2019-07-21] MEDS: NYSTATIN TOP POWDER 15 GM BOTTLE TP SCH ×3 (08:15→16:33)
--- NOTE | 2019-07-21 08:20 | NUR ---
MS RN NOTES SEEN AND EXAMINED BY , RELAYED ABNORMAL LAB RESULTS WITH ORDERS TO REPEAT H&H AT 10AM NOTED AND CARRIED OUT. FOR ABNORMAL CREATININE AND BUN LEVEL, PER LET NEPHRO DOCTOR CHECK IT.
[2019-07-21 10:36] LABS: HEMOGLOBIN 6.9 g/dL (11.5-14.8)
--- NOTE | 2019-07-21 11:00 | NUR ---
MS RN NOTES CALLED [facility] [phone] NUMBER TO RELAY LATEST H&H LEVEL FOR , CALLED 4X WASN'T ABLE TO SPEAK WITH AN DECAL CUTTER.
[2019-07-21 11:07] LABS: COMPLEMENT C3, SERUM 122 mg/dL (82-167); COMPLEMENT C4, SERUM 18 mg/dL (14-44)
--- NOTE | 2019-07-21 11:41 | NUR ---
MS RN NOTES CALLED [facility] SPOKE TO LEAD RELAY TESTER MARZENA TO RELAY LATEST H&H FOR . 5MINS AFTER, CALLED AND ORDER TO CALL NEPHDELILAH PANIAGUA FIRST TO APPROVE TRANSFUSION OF 1PRCB.
--- NOTE | 2019-07-21 12:08 | NUR ---
MS RN NOTES CALLED 'S OFFICE SPOKE TO JOSHUA AND RELAYED APPROVAL TO TRANSFUSE 1PRBC FROM . CONSENT SIGNED BY PATIENT, DARBY NOTIFIED ON THE PHONE.
[2019-07-21] MEDS: SOD FERRIC GLUC 125 MG in IV NS 0.9% 100 ML IV SCH (13:45)
--- NOTE | 2019-07-21 15:11 | NUR ---
MS RN NOTES STARTED BLOOD TRANSFUSION OF 1 BAG PRBC 279ML; PRE VITAL SIGNS CHECKED WITH BP 97/40mmHg HR 84bpm RR 18cpm Temp 97.7 O2 Sat 97%. PATIENT ALERT AND ORIENTED X 4, AWARE OF BLOOD OF TRANSFUSION. WILL CLOSELY MONITORED FOR TRANSFUSION REACTIONS.
--- NOTE | 2019-07-21 15:24 | NUR ---
MS RN NOTES 15MINS AFTER STARTING BLOOD TRANSFUSION, NO BLOOD TRANSFUSION REACTION NOTED. WILL CONTINUE TO MONITOR
--- NOTE | 2019-07-21 17:59 | NUR ---
MS RN NOTES S/P BLOOD TRANSFUSION WITH NO ADVERSE REACTIONS NOTED; LATEST VITAL SIGNS TAKEN WITH BP 89/47mmHg HR 84bpm RR 18cpm Temp 98.2. REMAINED ALERT AND ORIENTED X 4. WILL CONTINUE TO MONITOR.
--- NOTE | 2019-07-21 18:44 | NUR ---
MS RN CLOSING NOTES PATIENT IN BED AWAKE AND RESTING @ MODERATE HIGH BACKREST POSITION. A/O X 3 AND ABLE TO MAKE NEEDS KNOWN. ON 3L/MIN OXYGEN VIA N/C, TOLERATING WELL WITH NO SOB NOTED THROUGHOUT THE DAY. CONTACT ISOLATION MAINTAINED. LEFT HAND IV LINE G#20 AND RIGHT HAND G#22 BOTH INTACT AND PATENT, NO BLEEDING OR S/S OF INFILTRATION/INFECTION NOTED AT SITES.. ON IV ATB'S ZYVOX AND MERREM FOR CELLULITIS WITH NO ADVERSE REACTIONS NOTED. KUO CATHETER INTACT AND PATENT DRAINING TEA COLORED URINE IN SCANT AMOUNT, KUO CARE DONE. PT TURNED AND REPOSITIONED Q 2HRS. ALL NEEDS AND CARE ATTENDED WELL. SAFETY MEASURES KEPT IN PLACE. BED IN LOW LOCKED POSITION W/ SR UP X2. CALL LIGHT WITHIN EASY REACH OF PT. WILL ENDORSE TO DRAFTING LAYOUT WORKER NURSE FOR JOSE ROBERTO.
--- NOTE | 2019-07-21 19:00 | NUR ---
MS RN OPENING NOTES Received patient asleep on semi-Napier's on bariatric bed, on O2 inhalation via NC @ 3LPM, saturating well, no SOB/respiratory distress noted. No complaints of pain/discomfort made at this time. With ICD on BLE, functioning well. With bilateral hand IV, SL, no s/sx of infiltration noted. Kept on bed clean, dry, and comfortable. Call light within easy reach. On fall precautions. Will continue to monitor accordingly.
[2019-07-22] VITALS (25 sets, daily range): BP systolic 84–141; BP diastolic 41–77
[2019-07-22] MEDS: MEROPENEM 500 MG in IV NS 0.9% 50 ML IV SCH ×2 (05:03→17:24)
[2019-07-22] MEDS: LINEZOLID RTU BAG 600 MG in PREMIX 1 EA IV SCH ×2 (05:03→16:31)
--- NOTE | 2019-07-22 07:06 | NUR ---
MS RN CLOSING NOTES Patient asleep, easily awaken. No complaints made at this time. On O2 inhalation via NC @ 3LPM as ordered, saturating well, no SOB/respiratory distress noted. All nursing needs attended, no new unusualities noted. Kept patient on bed clean, dry and comfortable. Call light within easy reach. Endorsed to the next shift.
--- NOTE | 2019-07-22 07:40 | NUR ---
MS RN OPENING NOTES RECEIVED PATIENT FROM NOC SHIFT, ALERT AND ORIENTED X 4. VERBALLY RESPONSIVE AND ABLE TO FOLLOW DIRECTIONS. BREATHING REGULAR AND UNLABORED ON 3L/MIN OXYGEN VIA NASAL CANNULA. IV LINES ON RIGHT HAND G22 AND LEFT HAND G20 INTACT AND PATENT FLUSHES WELL WITH NO BLEEDING OR S/S OF INFILTRATION/INFECTION NOTED. KUO CATH INTACT AND PATENT DRAINING TEA COLORED URINE IN SCANT AMOUNT. ON LEILA MATTRESS FOR WOUND MANAGEMENT. WILL MONITOR MORNING LABS AND FOR POSSIBLE HD.
[2019-07-22 08:04] LABS: BASOPHILS # (AUTO) 0.1 /CMM (0.0-0.2); BASOPHILS % (AUTO) 1.2 % (0.0-2.0); EOSINOPHILS % (AUTO) 22.9 % (0.0-6.0); HEMATOCRIT 22 % (33-45); HEMOGLOBIN 7.5 g/dL (11.5-14.8); LYMPHOCYTES # (AUTO) 1.8 /CMM (0.8-4.8); LYMPHOCYTES % (AUTO) 15.8 % (20.0-44.0); MEAN CORPUSCULAR HGB CONC 33 g/dl (31.0-36.0); MEAN CORPUSCULAR VOLUME 101 fL (82-100); MONOCYTES # (AUTO) 1.8 /CMM (0.1-1.30); MONOCYTES % (AUTO) 16.3 % (2.0-12.0); NEUTROPHILS # (AUTO) 4.9 /CMM (1.8-8.9); NEUTROPHILS % (AUTO) 43.8 % (43.0-81.0); PLATELET COUNT (AUTO) 270 /CMM (150-450); RED BLOOD CELL COUNT(AUTO) 2.22 MIL/uL (4.0-5.2); WHITE BLOOD COUNT (AUTO) 11.2 K/uL (4.3-11.0)
[2019-07-22] MEDS: GABAPENTIN 300 MG CAPSULE PO SCH (08:22)
[2019-07-22] MEDS: ASCORBIC ACID 500 MG TABLET PO SCH (08:22)
[2019-07-22] MEDS: PANTOPRAZOLE 40 MG TABLET.DR PO SCH (08:22)
[2019-07-22] MEDS: LACTOBACILLUS RHAMNOSUS GG 1 EACH CAP.SPRINK PO SCH ×2 (08:23→16:44)
[2019-07-22 08:24] LABS: CALCIUM, SERUM 8.8 mg/dL (8.5-10.1); CREATININE 5.6 mg/dL (0.6-1.3); POTASSIUM 5.5 mmol/L (3.5-5.1)
[2019-07-22] MEDS: NEOMY SULF/BACITRAC ZN/POLY 15 GM TUBE TP SCH ×2 (08:24→16:41)
[2019-07-22] MEDS: CLOTRIMAZOLE 1% 15 GM TUBE TP SCH ×2 (08:24→16:41)
[2019-07-22] MEDS: NYSTATIN TOP POWDER 15 GM BOTTLE TP SCH ×3 (08:24→16:41)
[2019-07-22 09:48] LABS: EOSINOPHILS % (MANUAL) 20 % (0-4); LYMPHOCYTES % (MANUAL) 16 % (16-48); MONOCYTES % (MANUAL) 14 % (0-11.0); NEUTROPHILS % (MANUAL) 50 (42-76)
--- NOTE | 2019-07-22 11:22 | NUR ---
MS RN NOTES SPOKE WITH RELAYED POTASSIUM LEVEL OF 5.5 WITH NO NEW ORDER AT THIS TIME. WILL CONTINUE TO MONITOR.
[2019-07-22] MEDS: ALBUTEROL FS 2.5 MG/3 ML VIAL.NEB NEB PRN (11:30)
--- NOTE | 2019-07-22 12:00 | NUR ---
MS RN NOTES SEEN AND EXAMINED BY , SPOKE TO THE PATIENT AND ABOUT HAVING HEMODIALYSIS DISCUSSED ALSO HEMODIALYSIS CATHETER INSERTION. BOTH PATIENT AND AGREED ON THE PROCEDURES. 'S ORDERS NOTED AND CARRIED OUT.
[2019-07-22] MEDS ORDERED: methylPREDNISolone SOD SUCC 125 MG/2ML VIAL IV SCH (12:30)
[2019-07-22] MEDS: GABAPENTIN 400 MG CAPSULE PO SCH ×2 (12:50→16:45)
--- NOTE | 2019-07-22 13:05 | NUR ---
MS RN NOTES CONSENT FOR HEMODIALYSIS CATHETER INSERTION, ANESTHESIA AND HEMODIALYSIS SIGNED BY DARBY LEE. KEPT ON THE CHART.
[2019-07-22 13:07] LABS: *DILUTE PROTHROMBIN TIME (dPT) 49.3 sec (0.0-55.0); *THROMBIN TIME 20.4 sec (0.0-23.0); *dPT CONFIRM RATIO 1.01 Ratio (0.00-1.40); *dRVVT 45.3 sec (0.0-47.0)
[2019-07-22] MEDS ORDERED: HEPARIN SODIUM, PORCINE 1000 UNIT/1 ML VIAL IV ONE (14:00)
[2019-07-22] MEDS: SOLU-MEDROL 500 MG IN NS 100 ML IV SCH (14:12)
[2019-07-22] MEDS: SOD FERRIC GLUC 125 MG in IV NS 0.9% 100 ML IV SCH (14:19)
[2019-07-22] MEDS ORDERED: HEPARIN SODIUM, PORCINE 5000 UNITS/1 ML VIAL IV ONE (15:00)
--- NOTE | 2019-07-22 15:26 | NUR ---
MS RN NOTES S/P HEMODIALYSIS CATHETER INSERTION DONE BY WITH NO ACTIVE BLEEDING NOTED. CHEST XRAY DONE FOR PLACEMENT CHECK, VERIFIED BY . PATIENT REMAINED ALERT AND ORIENTED X 4 WITH NO COMPLAINTS OF PAIN/DISCOMFORT REPORTED. WILL CONTINUE TO MONITOR FOR COMPLICATIONS. Addendum: 07/22/19 at 1545 by MANUEL SOW RN ADDENDUM: HEMODIALYSIS CATHETER PLACED ON RIGHT NECK. APPROVED TO START HEMODIALYSIS.
[2019-07-22] MEDS: HYDROCODONE/APAP 5/325MG 1 EACH TABLET PO PRN (15:39)
--- NOTE | 2019-07-22 17:05 | NUR ---
MS RN NOTES STARTED HEMODIALYSIS SESSION WITH BP 97/51mmhg HR 82bpm RR 19cpm Temp 97.9 02 Sat 99%. AFTER 8MINS PATIENT COMPLAINED OF PAIN ON INHALATION, FRANCA MURPHY STOPS DIALYSIS BLOOD PRESSURE CONTINUE TO DROP. FRANCA MURPHY CALLED THEN SPOKE TO WITH ORDERS TO TRANSFER PATIENT TO ICU.
[2019-07-22] MEDS ORDERED: NOREPINEPHRINE 16 MG in IV D5W 500 ML IV PRN (17:30)
[2019-07-22] MEDS ORDERED: ALBUMIN 25% 25 GM in PREMIX 1 EA IV PRN (18:00)
--- NOTE | 2019-07-22 18:00 | NUR ---
MS RN NOTES CALLED RT FOR BREATHING TREATMENT. AFTER BREATHING TREATMENT PREPARED PATIENT FOR TRANSFER TO ICU. PATIENT REMAINED ALERT AND ORIENTED X 4, KNOWS HER CURRENT STATUS AND WHY SHE'S GOING TO BE TRANSFERRED. SPOKE TO ICU CHARGE NURSE AND INSTRUCTED TO TRANSFER PATIENT TO ROOM 258. TRANSFERRED PATIENT VIA ACLS WITH RT AND 2RN'S. REPORT GIVEN TO RADHA EXPLOSIVE ORDNANCE DISPOSAL MANAGER.
[2019-07-22 18:07] LABS: *ANA ANTI-CENTROMERE B AB <0.2 AI (0.0-0.9); *ANA ANTI-DNA(DS) AB, QN 3 IU/mL (0-9); *ANA ANTI-JO-1 <0.2 AI (0.0-0.9); *ANA ANTICHROMATIN ANTIBODY 0.8 AI (0.0-0.9); *ANA RNP ANTIBODIES <0.2 AI (0.0-0.9); *ANA SJOGREN'S ANTI-SS-A <0.2 AI (0.0-0.9); *ANA SJOGREN'S ANTI-SS-B <0.2 AI (0.0-0.9); *ANAANTI-SCLERODERMA-70 AB <0.2 AI (0.0-0.9); *ANASMITH AB <0.2 AI (0.0-0.9)
--- NOTE | 2019-07-22 18:21 | NUR ---
received pt from medsurg, low BP s/t to HD, alert, follows commands, SR, on 3L sat well, renal diet, f/c low output, v/s stable, no pain.
[2019-07-22] MEDS: NOREPINEPHRINE 16 MG in IV D5W 500 ML IV PRN (18:55)
--- NOTE | 2019-07-22 20:40 | NUR ---
SUMAC TANNER HD COMPLETE; PT TOLERATED WELL 3500 ML REMOVED. PT TIRED AT THIS TIME AND WORRIED ABOUT PICC LINE PLACEMENT. PER PT SHE CAN NOT USE HER HANDS D/T NEUROPATHY. PT STATES SHE IS PARANOID WHEN CURTAINS ARE OPEN. RENDERED ORAL CARE.
--- NOTE | 2019-07-22 21:15 | NUR ---
ICU/INORGANIC CHEMICAL TECHNICIAN PICC LINE NURSE HERE TO PLACE LINE, HOWEVER SHE HAS CONCERN OVER FUTURE HD ACCESS BY PLACING LINE IN ARMS. PICC LINE NURSE ASKED TO HAVE NEPHRO MD CALLED TO GIVEN THE OK TO HAVE LINE PLACED IN ARMS. [facility] NEPHROLOGY CONFERENCE SERVICES COORDINATOR MD WAS ANNE MARIE. EXPLAINED THE SITUATION TO HIM, HE SAID THAT IT WAS OK TO PLACE LINE IN ARMS.
--- NOTE | 2019-07-22 22:00 | NUR ---
NEON SIGN MECHANIC LEVOPHED TITRATED OFF PER PROTOCOL. CONTINUE TO MONITOR.
--- NOTE | 2019-07-22 22:20 | NUR ---
ASSOCIATE DOCTOR PICC LINE NURSE COMPLETED THOMAS PICC LINE PLACEMENT.
--- NOTE | 2019-07-22 22:45 | NUR ---
[employer]ORTS [employer] PT ASKED FOR TV TO BE TURNED OFF SHE WOULD LIKE TO GO TO SLEEP NOW. PLACED BED ON CONTINUOUS ROTATION MODE. PROVIDED ORAL CARE.
[2019-07-23] VITALS (59 sets, daily range): BP systolic 85–125; BP diastolic 36–73
[2019-07-23] MEDS: LINEZOLID RTU BAG 600 MG in PREMIX 1 EA IV SCH (04:00)
[2019-07-23 04:06] LABS: *PTT-LA MIX 49.7 sec (0.0-48.9)
[2019-07-23 04:43] LABS: BASOPHILS % (AUTO) 0.2 % (0.0-2.0); EOSINOPHILS % (AUTO) 0.2 % (0.0-6.0); HEMATOCRIT 22 % (33-45); HEMOGLOBIN 7.2 g/dL (11.5-14.8); LYMPHOCYTES # (AUTO) 1.1 /CMM (0.8-4.8); LYMPHOCYTES % (AUTO) 15.4 % (20.0-44.0); MEAN CORPUSCULAR HGB CONC 33 g/dl (31.0-36.0); MEAN CORPUSCULAR VOLUME 101 fL (82-100); MONOCYTES # (AUTO) 0.1 /CMM (0.1-1.30); MONOCYTES % (AUTO) 1.6 % (2.0-12.0); NEUTROPHILS # (AUTO) 6.1 /CMM (1.8-8.9); NEUTROPHILS % (AUTO) 82.6 % (43.0-81.0); PLATELET COUNT (AUTO) 197 /CMM (150-450); RED BLOOD CELL COUNT(AUTO) 2.14 MIL/uL (4.0-5.2); WHITE BLOOD COUNT (AUTO) 7.3 K/uL (4.3-11.0)
[2019-07-23 04:55] LABS: ALBUMIN 3.4 g/dL (3.4-5.0); BILIRUBIN,TOTAL 1.1 mg/dL (0.2-1.0); CALCIUM, SERUM 9.6 mg/dL (8.5-10.1); CREATININE 5.3 mg/dL (0.6-1.3); MAGNESIUM 2.7 mg/dL (1.8-2.4); PHOSPHORUS 7.8 mg/dL (2.5-4.9); POTASSIUM 5.9 mmol/L (3.5-5.1)
[2019-07-23] MEDS: MEROPENEM 500 MG in IV NS 0.9% 50 ML IV SCH ×2 (06:15→17:10)
--- NOTE | 2019-07-23 06:32 | NUR ---
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 PT DECLINED BED BATH AND DRESSING CHANGE. PT FEELS SHE NEEDS TO REST LAST NIGHT WAS TOO MUCH FOR HER.
--- NOTE | 2019-07-23 07:12 | NUR ---
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 On NC at 2lpm, no SOB. SR on telemonitor. IV line access - THOMAS PICC line, LH G20, RH G22 all patent & intact w/ no s/sx of infection/infiltration noted. Has R IJ HD cath in place. FC draining to minimal UOP, tea colored. Safety precaution in place w/ bed in lowest & locked pos. Call light placed w/in reach. On isolation prec. Will continue to monitor & attend pt needs.
[2019-07-23] MEDS: PANTOPRAZOLE 40 MG TABLET.DR PO SCH (07:56)
--- NOTE | 2019-07-23 08:00 | NUR ---
Pt seen & examined by Dr. Webster, updated about pt status.
[2019-07-23] MEDS: LACTOBACILLUS RHAMNOSUS GG 1 EACH CAP.SPRINK PO SCH ×2 (08:32→16:53)
[2019-07-23] MEDS: ASCORBIC ACID 500 MG TABLET PO SCH (08:32)
[2019-07-23] MEDS: GABAPENTIN 400 MG CAPSULE PO SCH ×3 (08:32→16:53)
[2019-07-23] MEDS: HYDROCODONE/APAP 5/325MG 1 EACH TABLET PO PRN (08:33)
[2019-07-23] MEDS: NYSTATIN TOP POWDER 15 GM BOTTLE TP SCH ×3 (08:33→16:30)
[2019-07-23] MEDS: CLOTRIMAZOLE 1% 15 GM TUBE TP SCH ×2 (08:33→16:30)
[2019-07-23] MEDS: Z GUARD REMEDY 2 OZ OINT TP PRN (08:34)
[2019-07-23] MEDS: NEOMY SULF/BACITRAC ZN/POLY 15 GM TUBE TP SCH ×2 (08:34→16:30)
--- NOTE | 2019-07-23 10:00 | NUR ---
H/H 05/[address] Webster w/ JESUSO.
--- NOTE | 2019-07-23 10:45 | NUR ---
Pt seen & examined by Dr. Garcia, updated about pt status.
--- NOTE | 2019-07-23 11:00 | NUR ---
Pt seen & examined by Dr. Alvarez, per MD will have HD today.
[2019-07-23 12:49] LABS: ABG OXYGEN SATURATION 95.4 % (92.0-98.5); ABG PCO2 34.2 mmHg (35.0-45.0); ABG PH 7.322 (7.350-7.450); ABG PO2 86.6 mmHg (75.0-100.0); AaDO2 72.7 mmHg; COHb 0.4 % (0.5-1.5); MetHb 0.8 % (0.0-1.5); O2Hb 94.3 % (94.0-97.0); SITE, ABG Right Femoral
[2019-07-23] MEDS: NOREPINEPHRINE 16 MG in IV D5W 500 ML IV PRN (13:30)
--- NOTE | 2019-07-23 13:50 | NUR ---
Pt started on Levophed drip prior to starting HD d/t low BP (SBP's 80-90's). HD RN Nancy at bedside.
--- NOTE | 2019-07-23 13:59 | NUR ---
Pt seen & examined by REGULO Meléndez w/ orders to give PRN stool softener (last BM 07/17) & to do STAT KUB.
[2019-07-23] MEDS: SOLU-MEDROL 500 MG IN NS 100 ML IV SCH (14:24)
[2019-07-23] MEDS: SOD FERRIC GLUC 125 MG in IV NS 0.9% 100 ML IV SCH (14:41)
--- NOTE | 2019-07-23 16:00 | NUR ---
HD ended c/o Nancy RN - 2.3L out. Pt tolerated the procedure well. Levophed off after HD.
[2019-07-23] MEDS: LINEZOLID 600 MG TABLET PO SCH (16:54)
--- NOTE | 2019-07-23 17:20 | NUR ---
Pt seen & examined by REGULO Paz, updated about pt status.
--- NOTE | 2019-07-23 18:30 | NUR ---
QUARTZ MOUNTER CLOSING NOTES Pt resting on her bed, not in any distress. Tolerating NC at 2lpm, no SOB. Remains SR on telemonitor. IV line access - THOMAS PICC line, LH G20, RH G22 all kept patent & intact w/ no s/sx of infection/infiltration noted. R IJ HD cath kept in place - dressing changed by HD RN. FC kept patent & intact, oliguric w/ tea colored urine. Safety precaution kept in place at all times w/ bed in lowest & locked pos. Call light placed w/in reach. Isolation prec observed. Will endorsed to PM RN for JOSE ROBERTO.
--- NOTE | 2019-07-23 19:35 | NUR ---
ROUNDER AND BACKER RCD PT W/DX CITLALI, CELLULITIS. PT A/O x4 ABLE TO MAKE NEEDS KNOWN. NSR ON MONITOR. O2 2L NC WITH DIMINISHED LUNG SOUNDS. PT DENIES PAIN.
--- NOTE | 2019-07-23 20:30 | NUR ---
HEEL SORTER CALLED PASTOR FOR KUB RESULTS.
--- NOTE | 2019-07-23 23:00 | NUR ---
PRESCHOOL ASSOCIATE TEACHER COMPLETE BED BATH AND WOUND TREATMENT RENDERED. PT TOLERATED WELL. DENIES PAIN.
[2019-07-24] VITALS (92 sets, daily range): BP systolic 64–127; BP diastolic 19–84
--- NOTE | 2019-07-24 02:45 | NUR ---
LINING SCRUBBER LEVOPHED RESTARTED FOR LOW SBP PER PROTOCOL. CONTINUE TO MONITOR.
[2019-07-24 04:21] LABS: BASOPHILS % (AUTO) 0.2 % (0.0-2.0); EOSINOPHILS % (AUTO) 0.1 % (0.0-6.0); HEMATOCRIT 22 % (33-45); HEMOGLOBIN 7.2 g/dL (11.5-14.8); LYMPHOCYTES # (AUTO) 1.6 /CMM (0.8-4.8); LYMPHOCYTES % (AUTO) 18.9 % (20.0-44.0); MEAN CORPUSCULAR HGB CONC 33 g/dl (31.0-36.0); MEAN CORPUSCULAR VOLUME 102 fL (82-100); MONOCYTES # (AUTO) 0.3 /CMM (0.1-1.30); MONOCYTES % (AUTO) 3.3 % (2.0-12.0); NEUTROPHILS # (AUTO) 6.4 /CMM (1.8-8.9); NEUTROPHILS % (AUTO) 77.5 % (43.0-81.0); PLATELET COUNT (AUTO) 166 /CMM (150-450); RED BLOOD CELL COUNT(AUTO) 2.13 MIL/uL (4.0-5.2); WHITE BLOOD COUNT (AUTO) 8.3 K/uL (4.3-11.0)
[2019-07-24 04:36] LABS: CALCIUM, SERUM 9.1 mg/dL (8.5-10.1); CREATININE 4.8 mg/dL (0.6-1.3)
[2019-07-24] MEDS: MEROPENEM 500 MG in IV NS 0.9% 50 ML IV SCH ×2 (05:30→17:33)
[2019-07-24] MEDS: LINEZOLID 600 MG TABLET PO SCH ×3 (05:30→19:51)
--- NOTE | 2019-07-24 06:21 | NUR ---
DRIVER/REFUSE COLLECTOR PT SLEPT THROUGHOUT SHIFT. PT DENIES PAIN. PT REQUESTS BED ROTATION MODE BE TURNED OFF.
[2019-07-24] MEDS: PANTOPRAZOLE 40 MG TABLET.DR PO SCH (07:56)
[2019-07-24] MEDS: ASCORBIC ACID 500 MG TABLET PO SCH (08:22)
[2019-07-24] MEDS: LACTOBACILLUS RHAMNOSUS GG 1 EACH CAP.SPRINK PO SCH ×3 (08:22→19:51)
[2019-07-24] MEDS: GABAPENTIN 400 MG CAPSULE PO SCH ×4 (08:22→19:51)
[2019-07-24] MEDS: NYSTATIN TOP POWDER 15 GM BOTTLE TP SCH ×3 (09:21→16:42)
[2019-07-24] MEDS: NEOMY SULF/BACITRAC ZN/POLY 15 GM TUBE TP SCH ×2 (09:23→16:42)
[2019-07-24] MEDS: CLOTRIMAZOLE 1% 15 GM TUBE TP SCH ×2 (09:24→16:42)
--- NOTE | 2019-07-24 09:34 | NUR ---
RN NOTES 0730-RECEIVED PATIENT FROM RN. PATIENT ON LEVOPHED 2 MCG/MIN FOR BP SUPPORT. OPENS EYES WHEN NAME CALLED OUT LOUD, FOLLOWS SIMPLE COMMAND. 0900-PATIENT FED SAFELY.DR ERAZO MADE ROUNDS, UPDATED HIM OF PATIENT STATUS. LEVOPHED TITARTED, MONITOR PATIENT BP.
[2019-07-24 11:11] LABS: *ANCANTIMYELOPEROXIDASE (MPO) <9.0 U/mL (0.0-9.0); *ANCANTIPROTEINASE 3 (PR-3) AB <3.5 U/mL (0.0-3.5)
[2019-07-24] MEDS: ALBUMIN 25% 25 GM in PREMIX 1 EA IV PRN (11:20)
--- NOTE | 2019-07-24 11:46 | NUR ---
RN NOTES 1130-PATIENT FOR DIALYSIS, REPORT GIVEN TO CLEANER CARPET AND UPHOLSTERY. PATIENT ON LEVOPHED AT 5 MCG/MIN.MONITOR PATIENT
[2019-07-24] MEDS: SOLU-MEDROL 500 MG IN NS 100 ML IV SCH (14:11)
[2019-07-24] MEDS: HYDROCODONE/APAP 5/325MG 1 EACH TABLET PO PRN (14:39)
[2019-07-24] MEDS: Z GUARD REMEDY 2 OZ OINT TP PRN (16:43)
--- NOTE | 2019-07-24 18:42 | NUR ---
RN NNOTES 1400-POST DIALYSIS, PER HD RN, 1700 OUT. MONITOR PATIENT BP. FED SAFELY. REST PROMOTED 1600-WOUND CARE DONE EARLIER. PATIENT RIGHT JUG HD CATHETER REINFORCED, NOTED SATURATED AREA. MONITOR.PATIENT MEDICATED EARLIER FOR GENERALIZED PAIN. 1830-SEEN BY REGULO YATES GI, ORDER FOR CT ABD/PELVIS WITH IV CONTRAST, CONSENT OBTAINED FROM PATIENT . LUDMILA FROM RADIOLOGY EVALUATED PATIENT MEASUREMENTS,, PER HIM PATIENT WILL NOT FIT ON THE CT TABLE, TRUDY NOTIFIED.
--- NOTE | 2019-07-24 19:30 | NUR ---
RN NOTES 1899-PATIENT RESPONDS TO VOICE, INCOMING RN PRESENT. REPORT GIVEN .
--- NOTE | 2019-07-24 20:00 | NUR ---
CREDIT REVIEW OFFICER RCD PT W/DX CITLALI, CELLULITIS. PT A/O x4 ABLE TO MAKE NEEDS KNOWN. NSR ON MONITOR. O2 2L NC WITH DIMINISHED LUNG SOUNDS. PT DENIES PAIN.
[2019-07-24] MEDS: POLYETHYLENE GLYCOL 3350 17 GM POWD.PACK PO SCH (22:37)
[2019-07-25] VITALS (92 sets, daily range): BP systolic 89–125; BP diastolic 36–75
[2019-07-25 04:12] LABS: BASOPHILS % (AUTO) 0.1 % (0.0-2.0); EOSINOPHILS % (AUTO) 0.1 % (0.0-6.0); HEMATOCRIT 21 % (33-45); HEMOGLOBIN 7.1 g/dL (11.5-14.8); LYMPHOCYTES # (AUTO) 1.2 /CMM (0.8-4.8); LYMPHOCYTES % (AUTO) 14.2 % (20.0-44.0); MEAN CORPUSCULAR HGB CONC 34 g/dl (31.0-36.0); MEAN CORPUSCULAR VOLUME 102 fL (82-100); MONOCYTES # (AUTO) 0.4 /CMM (0.1-1.30); MONOCYTES % (AUTO) 5.1 % (2.0-12.0); NEUTROPHILS # (AUTO) 6.6 /CMM (1.8-8.9); NEUTROPHILS % (AUTO) 80.5 % (43.0-81.0); PLATELET COUNT (AUTO) 172 /CMM (150-450); RED BLOOD CELL COUNT(AUTO) 2.07 MIL/uL (4.0-5.2); WHITE BLOOD COUNT (AUTO) 8.2 K/uL (4.3-11.0)
[2019-07-25 04:24] LABS: CALCIUM, SERUM 9.2 mg/dL (8.5-10.1); CREATININE 4.2 mg/dL (0.6-1.3); POTASSIUM 4.8 mmol/L (3.5-5.1)
[2019-07-25] MEDS: LINEZOLID 600 MG TABLET PO SCH ×2 (05:20→16:24)
[2019-07-25] MEDS: MEROPENEM 500 MG in IV NS 0.9% 50 ML IV SCH ×2 (05:21→19:58)
--- NOTE | 2019-07-25 07:12 | NUR ---
VACUUM CASTER INITIAL NOTES Rec'd pt on bed, not in any distress, sleeping but arousable, A/O x 3 (little confused). On NC at 2lpm, no SOB. SR on telemonitor. IV line access - THOMAS PICC line, LH G20, RH G22 all patent & intact w/ no s/sx of infection/infiltration noted. On Levophed drip x 3 mcg infusing well. Has R IJ HD cath in place. FC draining to minimal UOP, tea colored. Safety precaution in place w/ bed in lowest & locked pos. Call light placed w/in reach. On isolation prec. Will continue to monitor & attend pt needs. Addendum: 07/25/19 at 1842 by NATHEN HACKETT RN Addendum: No IV line access on LH & RH.
[2019-07-25] MEDS: PANTOPRAZOLE 40 MG TABLET.DR PO SCH (07:30)
[2019-07-25] MEDS ORDERED: predniSONE 50 MG TABLET PO SCH (09:00)
[2019-07-25] MEDS: LACTOBACILLUS RHAMNOSUS GG 1 EACH CAP.SPRINK PO SCH ×2 (09:00→16:24)
[2019-07-25] MEDS: predniSONE 20 MG TABLET PO SCH (09:00)
[2019-07-25] MEDS: ASCORBIC ACID 500 MG TABLET PO SCH (09:00)
[2019-07-25] MEDS: GABAPENTIN 400 MG CAPSULE PO SCH ×3 (09:00→16:24)
[2019-07-25 09:16] LABS: ABG BASE EXCESS -1.6 mmol/L; ABG OXYGEN SATURATION 97.3 % (92.0-98.5); ABG PCO2 36.8 mmHg (35.0-45.0); ABG PH 7.411 (7.350-7.450); ABG PO2 106.3 mmHg (75.0-100.0); AaDO2 49.9 mmHg; COHb 0.9 % (0.5-1.5); MetHb 0.4 % (0.0-1.5); SITE, ABG Right Radial; VENT MODE, BG 2L NC
[2019-07-25] MEDS: NYSTATIN TOP POWDER 15 GM BOTTLE TP SCH ×3 (09:16→16:25)
[2019-07-25] MEDS: NEOMY SULF/BACITRAC ZN/POLY 15 GM TUBE TP SCH ×2 (09:16→16:25)
[2019-07-25] MEDS: CLOTRIMAZOLE 1% 15 GM TUBE TP SCH ×2 (09:16→16:25)
--- NOTE | 2019-07-25 09:42 | NUR ---
ABG results relayed to jerome Johnson w/ KOJO at 1lpm.
[2019-07-25 12:06] LABS: *ANCA ATYPICAL p-ANCA <1:20 titer (Neg:<1:20); *ANCA CYTOPLASMIC (C-ANCA) <1:20 titer (Neg:<1:20); *ANCA PERINUCLEAR (P-ANCA) <1:20 titer (Neg:<1:20)
--- NOTE | 2019-07-25 13:30 | NUR ---
Pt seen & examined by Ivone RAJPUT - was able to talk to Rika RAJPUT over the phone. LA 1.2 relayed to Ivone RAJPUT.
[2019-07-25] MEDS ORDERED: PEG 3350/NA SULF,BICARB,CL/KCL 4,000 ML BOTTLE PO ONE (16:00)
[2019-07-25] MEDS: NOREPINEPHRINE 16 MG in IV D5W 500 ML IV PRN (16:25)
--- NOTE | 2019-07-25 17:00 | NUR ---
HD started c/o Nancy MURPHY - made her aware re: bleeding from HD cath from last night.
[2019-07-25] MEDS: ALBUTEROL FS 2.5 MG/3 ML VIAL.NEB NEB PRN (17:15)
--- NOTE | 2019-07-25 18:13 | NUR ---
Pt seen & examined by REGULO Meléndez. POC explained to the pt & pt's at bedside. Addendum: 07/25/19 at 1837 by NATHEN HACKETT RN Per jerome Meléndez NP not to insert NGT.
--- NOTE | 2019-07-25 18:35 | NUR ---
Pt seen & examined by REGULO Boles updated about pt status.
--- NOTE | 2019-07-25 18:38 | NUR ---
ENTRY LEVEL MARKETING ASSISTANT CLOSING NOTES Pt resting on her bed, not in any distress. Tolerating NC at 2lpm, no SOB. Remains SR on telemonitor. IV line access - THOMAS PICC line kept patent & intact w/ no s/sx of infection/infiltration noted w/ Levophed infusing at 4 mcg. R IJ HD cath kept in place - dressing changed this AM d/t bleeding from site, HD ongoing. FC kept patent & intact draining to BSB w/ yellowish UOP. at bedside. Safety precaution kept in place at all times w/ bed in lowest & locked pos. Call light placed w/in reach. Isolation prec observed. Will endorsed to PM RN for JOSE ROBERTO. Addendum: 07/25/19 at 1920 by NATHEN HACKETT RN Addendum: endorsed to PM RN to give 1800H Meropenem post HD.
--- NOTE | 2019-07-25 20:00 | NUR ---
Rn initial notes Pt is resting in bed, not in any distress. hd in process. Tolerating NC at 2lpm, no SOB. Remains SR on telemonitor. IV line access - THOMAS PICC line kept patent & intact w/ no s/sx of infection/infiltration noted w/ Levophed infusing at 4 mcg. FC kept patent & intact draining to BSB w/ yellowish UOP. Pt in the process of drinking go-lightly in per for EGD and colonoscopy to be done on . Pt kept npo except meds. Safety precaution kept in place at all times w/ bed in lowest & locked pos. Call light placed w/in reach. Isolation prec observed. Will cont to monitor.
[2019-07-25 21:09] LABS: APPEARANCE,URINE SL CLOUDY (CLEAR); BILIRUBIN,URINE 1+ (NEGATIVE); BLOOD, URINE 3+ Ery/uL (NEGATIVE); COLOR,URINE AMBER (YELLOW); KETONES,URINE TRACE (NEGATIVE); LEUKOCYTE ESTERASE ,URINE TRACE (NEGATIVE); NITRITE, URINE NEGATIVE (NEGATIVE); PROTEIN,URINE 2+ mg/dl (NEGATIVE); UGLUCOSE NEGATIVE (NEGATIVE); UROBILINOGEN,URINE 0.2 EU/dL (0.2)
[2019-07-25 21:18] LABS: CREATININE, URINE 231.2 MG/DL (30.0-125.0); URINE TOTAL PROTEIN 389.2 mg/dL (0-11.9)
[2019-07-25 21:28] LABS: BACTERIA,URINE Few /HPF (None Seen)
[2019-07-25 21:29] LABS: SQUAMOUS EPITHELIAL CELL,UR Few /HPF (None Seen); URINE AMORPHOUS URATE Few /HPF (None Seen)
[2019-07-25] MEDS: POLYETHYLENE GLYCOL 3350 17 GM POWD.PACK PO SCH (21:34)
[2019-07-25 22:04] LABS: EOSINOPHIL,URINE None Seen
[2019-07-25] MEDS: HYDROCODONE/APAP 5/325MG 1 EACH TABLET PO PRN (23:58)
[2019-07-26] VITALS (92 sets, daily range): BP systolic 87–127; BP diastolic 44–72
[2019-07-26 04:18] LABS: BASOPHILS % (AUTO) 0.3 % (0.0-2.0); EOSINOPHILS % (AUTO) 0.1 % (0.0-6.0); HEMATOCRIT 22 % (33-45); HEMOGLOBIN 7.2 g/dL (11.5-14.8); LYMPHOCYTES # (AUTO) 1.4 /CMM (0.8-4.8); LYMPHOCYTES % (AUTO) 14.1 % (20.0-44.0); MEAN CORPUSCULAR HGB CONC 33 g/dl (31.0-36.0); MEAN CORPUSCULAR VOLUME 103 fL (82-100); MONOCYTES # (AUTO) 0.7 /CMM (0.1-1.30); MONOCYTES % (AUTO) 7.2 % (2.0-12.0); NEUTROPHILS # (AUTO) 7.8 /CMM (1.8-8.9); NEUTROPHILS % (AUTO) 78.3 % (43.0-81.0); PLATELET COUNT (AUTO) 146 /CMM (150-450); RED BLOOD CELL COUNT(AUTO) 2.11 MIL/uL (4.0-5.2); WHITE BLOOD COUNT (AUTO) 9.9 K/uL (4.3-11.0)
[2019-07-26 04:39] LABS: CALCIUM, SERUM 9.5 mg/dL (8.5-10.1); CREATININE 3.5 mg/dL (0.6-1.3); MAGNESIUM 2.5 mg/dL (1.8-2.4); PHOSPHORUS 6.9 mg/dL (2.5-4.9); POTASSIUM 4.6 mmol/L (3.5-5.1)
[2019-07-26] MEDS: LINEZOLID 600 MG TABLET PO SCH ×2 (06:06→17:56)
[2019-07-26] MEDS: MEROPENEM 500 MG in IV NS 0.9% 50 ML IV SCH ×2 (06:06→17:56)
--- NOTE | 2019-07-26 07:06 | NUR ---
Rn closing notes Pt is resting in bed, not in any distress. 2L taken off HD. Tolerating NC at 2lpm, no SOB. Remains SR on telemonitor. IV line access - THOMAS PICC line kept patent & intact w/ no s/sx of infection/infiltration noted w/ Levophed infusing at 4 mcg. FC kept patent & intact draining to BSB w/ yellowish UOP. Pt in the process of drinking go-lightly in per for EGD and colonoscopy to be done on . Pt kept npo except meds. Safety precaution kept in place at all times w/ bed in lowest & locked pos. Call light placed w/in reach. Isolation prec observed. Will cont to monitor.
--- NOTE | 2019-07-26 07:09 | NUR ---
HERBICIDE SERVICE SALES REPRESENTATIVE INITIAL NOTES PT A/O X3. NO SOB OR ACUTE SIGNS OF DISTRESS NOTED. BREATHING IS EVEN AND UNLABORED. PT ON 1 L VIA NC AND SATING WELL. SHE DENIES ANY PAIN AT THIS TIME. RIGHT UPPER PICC LINE NOTED TO BE PATENT AND INTACT. NO REDNESS OR SIGNS OF INFILTRATION NOTED. RIGHT IJ NOTED TO BE C/D/I. BED IN LOW LOCKED POSITION, SIDE RIALS UP X2, CALL LIGHT WITHIN REACH, ISOLATION PRECAUTIONS MAINTAINED. WILL CONTINUE TO MONITOR
[2019-07-26] MEDS: ASCORBIC ACID 500 MG TABLET PO SCH (08:45)
[2019-07-26] MEDS: GABAPENTIN 400 MG CAPSULE PO SCH ×3 (08:45→17:56)
[2019-07-26] MEDS: LACTOBACILLUS RHAMNOSUS GG 1 EACH CAP.SPRINK PO SCH ×2 (08:45→17:56)
[2019-07-26] MEDS: PANTOPRAZOLE 40 MG TABLET.DR PO SCH (08:45)
[2019-07-26] MEDS: predniSONE 20 MG TABLET PO SCH (08:47)
[2019-07-26] MEDS: NYSTATIN TOP POWDER 15 GM BOTTLE TP SCH ×3 (08:48→17:57)
[2019-07-26] MEDS: NEOMY SULF/BACITRAC ZN/POLY 15 GM TUBE TP SCH ×2 (08:48→17:57)
[2019-07-26] MEDS: CLOTRIMAZOLE 1% 15 GM TUBE TP SCH ×2 (08:48→17:58)
[2019-07-26] MEDS ORDERED: PEG 3350/NA SULF,BICARB,CL/KCL 4,000 ML BOTTLE PO ONE (11:30)
[2019-07-26] MEDS ORDERED: MAGNESIUM CITRATE 296 ML BOTTLE PO ONE (11:30)
--- NOTE | 2019-07-26 14:02 | NUR ---
DEHYDRATOR OPERATOR NOTES: EGD F/U PER REGULO SAENZ, SCHEDULED EGD AND COLONOSCOPY IS NOW CANCELLED
--- NOTE | 2019-07-26 15:17 | NUR ---
VETERANS EMPLOYMENT REPRESENTATIVE RN NOTES: MD ORDERS PT NOTED TO BE CONSTIPATED AND UNABLE TO HAVE A BM DESPITE PREVIOUS ENEMA ADMINISTRATIONS, MAG CITRATE, AND GOLYTELY SOLUTION. VERBAL ORDERS ORDERS OBTAINED BY COLLEGE DIRECTOR FOR MANUAL DISIMPACTION
--- NOTE | 2019-07-26 18:51 | NUR ---
RAILROAD CROSSING PROTECTION MAINTAINER CLOSING NOTES PT REMAINS IN FAIR CONDITION. ALL NEEDS ANTICIPATED FOR AND MET DURING SHIFT . ALL DUE MEDS GIVEN. PRN AND WOUND CARE RENDERED ORDERED. PT REPOSITIONED AND TURNED PER PROTOCOL. OB STOOL SAMPLE OBTAINED AND SENT TO LAB. VSS REMAIN STABLE. BP STABLE ON LOW DOSE LEVO DRIP. PICC LINE REMAINS PATENT AND INTACT. WILL ENDORSE TO NIGHTSHIFT RN FOR JOSE ROBERTO
--- NOTE | 2019-07-26 19:30 | NUR ---
PAPER PATTERN INSPECTOR INITIAL SHIFT NOTES RECEIVED PATIENT IN BED, AWAKE, ALERT AND ORIENTED X3, BUT C/O WEAKNESS, LETHARGIC/DROWSY. ENCOURAGED PATIENT TO REST. BREATHING EVEN AND NONLABORED, TOLERATING O2 VIA NC @ 1LPM, NO SIGNS AND SYMPTOMS OF RESPIRATORY DISTRESS NOTED. THOMAS PICC PATENT AND INTACT, FLUSHED WITH NS, ONGOING LEVOPHED GTT, CURRENTLY @ 2MCG/MIN. RIGHT IJ HD CATHETER DRESSING CLEAN, DRY AND INTACT, NO BLEEDING NOTED AT SITE. KUO CATHETER DRAINING MINIMAL AMOUNT OF HORTENSIA COLORED URINE VIA GRAVITY TO BAG. PLAN OF CARE DISCUSSED WITH THE PATIENT, WHOM VERBALIZES UNDERSTANDING. WILL CONTINUE TO CLOSELY MONITOR
[2019-07-26 20:05] LABS: OCCULT BLOOD STOOL POSITIVE (NEGATIVE)
[2019-07-26] MEDS: POLYETHYLENE GLYCOL 3350 17 GM POWD.PACK PO SCH (21:48)
[2019-07-26] MEDS: NOREPINEPHRINE 16 MG in IV D5W 500 ML IV PRN (21:49)
[2019-07-27] VITALS (87 sets, daily range): BP systolic 54–130; BP diastolic 20–80
[2019-07-27 05:00] LABS: HEMATOCRIT 21 % (33-45); HEMOGLOBIN 7.1 g/dL (11.5-14.8); LYMPHOCYTES # (AUTO) 1.3 /CMM (0.8-4.8); LYMPHOCYTES % (AUTO) 13.8 % (20.0-44.0); MEAN CORPUSCULAR HGB CONC 33 g/dl (31.0-36.0); MEAN CORPUSCULAR VOLUME 103 fL (82-100); MONOCYTES # (AUTO) 0.6 /CMM (0.1-1.30); MONOCYTES % (AUTO) 6.6 % (2.0-12.0); NEUTROPHILS # (AUTO) 7.5 /CMM (1.8-8.9); NEUTROPHILS % (AUTO) 79.6 % (43.0-81.0); PLATELET COUNT (AUTO) 141 /CMM (150-450); RED BLOOD CELL COUNT(AUTO) 2.06 MIL/uL (4.0-5.2); WHITE BLOOD COUNT (AUTO) 9.4 K/uL (4.3-11.0)
[2019-07-27 05:13] LABS: CALCIUM, SERUM 9.5 mg/dL (8.5-10.1); CREATININE 3.9 mg/dL (0.6-1.3); POTASSIUM 5.2 mmol/L (3.5-5.1)
[2019-07-27] MEDS: LINEZOLID 600 MG TABLET PO SCH ×2 (05:17→17:05)
[2019-07-27] MEDS: MEROPENEM 500 MG in IV NS 0.9% 50 ML IV SCH ×2 (05:18→17:05)
--- NOTE | 2019-07-27 06:34 | NUR ---
PROFESSIONAL FIGHTER NOTES SCALE ON BED BROKEN, UNABLE TO CHECK DAILY WEIGHT.
--- NOTE | 2019-07-27 07:00 | NUR ---
CARTON LETTERING MACHINE OPERATOR CLOSING NOTES LEVOPHED GTT TITRATED DOWN TO 0.5MCG/MIN. UNABLE TO TITRATE OFF AT THIS TIME MAP DROPS BELOW 65. PATIENT SLEEPING AT THIS TIME, APPEARS COMFORTABLE. WILL ENDORSE THE PATIENT TO THE AM SHIFT NURSE FOR CONTINUITY OF CARE
--- NOTE | 2019-07-27 07:45 | NUR ---
ICU/RN INITIAL NOTES,AM RECEIVED BEDSIDE REPORT FROM NIGHT NURSE. PT ALERT, AWAKE, FOLLOWS COMMANDS. PT LETHARGIC AND DROWSY. ON NASAL CANULA 1 LITER, TOLERATING WELL, NO DISTRESS NOTED. PT SINUS TACH ON TELE. PICC LINE PATENT AND INTACT, NO S/S OF INFECTION OF INFILTRATION NOTED. LOW DOSE LEVOPHED INFUSING PER PROTOCOL. KUO CATH IN PLACE, MINIMAL HORTENSIA URINE NOTED. CURRENTLY NPO EXCEPT MEDICATIONS, SWALLOW EVAL PENDING. ALL NEEDS WILL BE ATTENDED TO, SAFETY MEASURES TAKEN, BED IN LOW POSITION, SIDE RAILS UP, CALL LIGHT WITHIN REACH. WILL CONTINUE CARE.
[2019-07-27] MEDS: predniSONE 20 MG TABLET PO SCH (08:14)
[2019-07-27] MEDS: LACTOBACILLUS RHAMNOSUS GG 1 EACH CAP.SPRINK PO SCH ×2 (08:14→17:05)
[2019-07-27] MEDS: PANTOPRAZOLE 40 MG TABLET.DR PO SCH (08:14)
[2019-07-27] MEDS: ASCORBIC ACID 500 MG TABLET PO SCH (08:14)
[2019-07-27] MEDS: GABAPENTIN 400 MG CAPSULE PO SCH ×3 (08:14→17:05)
[2019-07-27] MEDS: NEOMY SULF/BACITRAC ZN/POLY 15 GM TUBE TP SCH ×2 (08:15→17:06)
[2019-07-27] MEDS: CLOTRIMAZOLE 1% 15 GM TUBE TP SCH ×2 (08:16→17:06)
[2019-07-27] MEDS: NYSTATIN TOP POWDER 15 GM BOTTLE TP SCH ×3 (08:16→17:06)
--- NOTE | 2019-07-27 09:30 | NUR ---
ICU/RN: SWALLOW EVALUATION DONE, PT PLACED ON SOFT DIET.
--- NOTE | 2019-07-27 10:00 | NUR ---
ICU/RN: HD STARTED, VSS, WILL CONTINUE TO MONITOR.
--- NOTE | 2019-07-27 13:20 | NUR ---
ICU/RN: END OF HD. 2.5 LITERS OUT. TOLERATED WELL, NO DISTRESS.
[2019-07-27] MEDS: ONDANSETRON HCL/PF 4 MG/2 ML VIAL IVP PRN (15:41)
--- NOTE | 2019-07-27 16:00 | NUR ---
ICU/RN: PT OF LEVOPHED. VSS 118/49,99,14,95%. WILL CONTINUE TO MONITOR.
--- NOTE | 2019-07-27 18:43 | NUR ---
ICU/RN ENDING NOTES,AM BEDSIDE REPORT WILL BE ENDORSED TO NIGHT NURSE FOR JOSE ROBERTO. ON NASAL CANULA, NO DISTRESS. SINUS TACH ON TELE. HD DONE TODAY, 2.5 LITERS OUT. UPDATES GIVEN TO . PT OFF LEVO AT 1600, VSS. ALL NEEDS ATTENDED TO, SAFETY MEASURES TAKEN, BED IN LOW POSITION, SIDE RAILS UP, CALL LIGHT WITHIN REACH.
--- NOTE | 2019-07-27 19:00 | NUR ---
RECEIVED PATIENT IN NO ACUTE DISTRESS IN BED. PATIENT IS A/O X 2 AND VERY DROWSY. PATIENT IS ON TELE WITH SR ON THE MONITOR. PATIENT IS ON O2 VIA NASAL CANNULA AT 1LPM AND TOLERATING WELL. PATIENT NOT COMPLAINING OF ANY SHORTNESS OF BREATH, DIFFICULTY BREATHING OR PAIN AT THIS TIME. PATIENT HAS KUO CATHETER THAT IS CLEAN DRY INTACT AND PATIENT WITH HORTENSIA COLORED URINE DRAINING. PATIENT HAS RIGHT UPPER ARM DOUBLE LUMEN PICC LINE THAT IS CLEAN DRY INTACT AND PATENT WITH NORMAL SALINE AT TKO. PATIENT HAS RIGHT INTERNAL JUGULAR HD CATH THAT IS CLEAN DRY AND INTACT. BED IN LOW LOCK POSITION WITH RIALS UP X 2. CALL LIGHT WITHIN REACH AND ALL SAFETY MEASURES ENSURED AND CARRIED OUT. WILL CONTINUE TO MONITOR.
[2019-07-27 21:28] LABS: HEMOGLOBIN 6.5 g/dL (11.5-14.8)
--- NOTE | 2019-07-27 21:30 | NUR ---
NOTIFIED DR. MOORE THAT PATIENT SEEMED TO BE MORE LETHARGIC AND HAS H/H 6.5/20. RECEIVED ORDERS FOR 1 UNIT PRBC. READBACK ORDERS PERFORMED AND CARRIED OUT.
[2019-07-27] MEDS ORDERED: NOREPINEPHRINE 4 MG/4 ML AMPUL IV ONE (21:42)
[2019-07-27] MEDS: NOREPINEPHRINE 16 MG in IV D5W 500 ML IV PRN (21:50)
--- NOTE | 2019-07-27 21:50 | NUR ---
RESTARTED LEVOPHED BECAUSE BLOOD PRESSURE WAS 67/38.
[2019-07-27] MEDS: POLYETHYLENE GLYCOL 3350 17 GM POWD.PACK PO SCH (22:00)
[2019-07-28] VITALS (73 sets, daily range): BP systolic 65–125; BP diastolic 17–72
[2019-07-28 04:40] LABS: BASOPHILS % (AUTO) 0.1 % (0.0-2.0); HEMATOCRIT 24 % (33-45); HEMOGLOBIN 7.7 g/dL (11.5-14.8); LYMPHOCYTES # (AUTO) 1.3 /CMM (0.8-4.8); LYMPHOCYTES % (AUTO) 7.5 % (20.0-44.0); MEAN CORPUSCULAR HGB CONC 33 g/dl (31.0-36.0); MEAN CORPUSCULAR VOLUME 103 fL (82-100); MONOCYTES # (AUTO) 0.9 /CMM (0.1-1.30); MONOCYTES % (AUTO) 5.2 % (2.0-12.0); NEUTROPHILS # (AUTO) 14.9 /CMM (1.8-8.9); NEUTROPHILS % (AUTO) 87.2 % (43.0-81.0); PLATELET COUNT (AUTO) 120 /CMM (150-450); RED BLOOD CELL COUNT(AUTO) 2.32 MIL/uL (4.0-5.2); WHITE BLOOD COUNT (AUTO) 17.1 K/uL (4.3-11.0)
[2019-07-28 04:46] LABS: CALCIUM, SERUM 9.4 mg/dL (8.5-10.1); CREATININE 3.1 mg/dL (0.6-1.3); MAGNESIUM 2.6 mg/dL (1.8-2.4); POTASSIUM 4.6 mmol/L (3.5-5.1)
[2019-07-28] MEDS: LINEZOLID 600 MG TABLET PO SCH ×2 (04:46→17:39)
--- NOTE | 2019-07-28 07:38 | NUR ---
PATIENT REMAINS IN NO ACUTE DISTRESS IN BED. PATIENT DID NOT HAVE ANY SIGNIFICANT CHANGE IN CONDITION DURING SHIFT. ALL NEEDS MET, ALL ORDERS CARRIED OUT. WILL ENDORSE CARE TO AM RN FOR CONTINUITY OF CARE.
--- NOTE | 2019-07-28 08:00 | NUR ---
rn notes received pt awake and alert; verbally responsive with no signs of any acute distress, pt denies pain. pardo catheter in place and draining thru gravity, THOMAS PICC line in place and secured with clean and dry dressing. no acute bleeding noted at this time. will monitor accordingly.
[2019-07-28] MEDS: GABAPENTIN 400 MG CAPSULE PO SCH ×3 (09:19→17:33)
[2019-07-28] MEDS: predniSONE 20 MG TABLET PO SCH (09:20)
[2019-07-28] MEDS: NYSTATIN TOP POWDER 15 GM BOTTLE TP SCH ×3 (09:20→17:36)
[2019-07-28] MEDS: ASCORBIC ACID 500 MG TABLET PO SCH (09:20)
[2019-07-28] MEDS: PANTOPRAZOLE 40 MG TABLET.DR PO SCH ×3 (09:20→17:35)
[2019-07-28] MEDS: CLOTRIMAZOLE 1% 15 GM TUBE TP SCH ×2 (09:21→17:37)
[2019-07-28] MEDS: NEOMY SULF/BACITRAC ZN/POLY 15 GM TUBE TP SCH ×2 (09:21→17:36)
[2019-07-28] MEDS: LACTOBACILLUS RHAMNOSUS GG 1 EACH CAP.SPRINK PO SCH ×2 (09:28→17:34)
[2019-07-28] MEDS ORDERED: NA PHOS,M-B/NA PHOS,DI-BA 1 EA ENEMA RC PRN (16:00)
[2019-07-28] MEDS ORDERED: PEG 3350/NA SULF,BICARB,CL/KCL 4,000 ML BOTTLE PO ONE (16:00)
[2019-07-28] MEDS ORDERED: MAGNESIUM CITRATE 296 ML BOTTLE PO ONE (16:00)
[2019-07-28 17:03] LABS: HEMOGLOBIN 7.5 g/dL (11.5-14.8)
[2019-07-28] MEDS: MEROPENEM 500 MG in IV NS 0.9% 50 ML IV SCH (18:40)
[2019-07-28 18:46] LABS: ALBUMIN 3.3 g/dL (3.4-5.0); BILIRUBIN,DIRECT 1.1 mg/dL (0.0-0.2); BILIRUBIN,TOTAL 2.1 mg/dL (0.2-1.0); TOTAL PROTEIN, SERUM 6.5 g/dL (6.4-8.2)
--- NOTE | 2019-07-28 19:19 | NUR ---
rn closing notes pt noted with small amount of black tarry stool during this shift, MAGNETO ELECTRICIAN Ivone and Rika aware.urine specimen sent for culture. PT INR result relayed to Rika and endorsed for f/up. wound dressing done, good skin care provided. all meds given as ordered. pt remains on levophed at 4 mcg, BP wnl. all needs attended during this shift. endorsed pt to next shift rn with no acute bleeding, not in any form of distress
--- NOTE | 2019-07-28 19:30 | NUR ---
JAVA FRONT END WEB DEVELOPER NOTE RECEIVED PT A/O X2-3 AND ABLE TO VERBALIZE NEEDS. ON 2L OF O2 VIA NC AND SATURATING WELL. HOB ELEVATED AND ON ASPIRATION PRECAUTIONS. ISOLATION PRECAUTIONS OBSERVED. IV THOMAS PICC WITH LEVO INFUSING @4MCG/MIN. RIJ HD CATH IN PLACE AND CLEAN. DENIES PAIN AT THIS TIME.CALL LIGHT WITHIN REACH. WILL MONITOR.
[2019-07-28] MEDS: METRONIDAZOLE 500MG/ NS 100ML 500 MG in PREMIX 1 EA IV SCH (21:31)
[2019-07-28] MEDS: ALBUTEROL FS 2.5 MG/3 ML VIAL.NEB NEB PRN (21:58)
[2019-07-28] MEDS: POLYETHYLENE GLYCOL 3350 17 GM POWD.PACK PO SCH (22:00)
--- NOTE | 2019-07-28 22:00 | NUR ---
POWDER BLENDER AND POURER NOTE DR MERIDA CALLED AND SAID IF PT IS STABLE THROUGHOUT THE NIGHT, H/H IS STABLE AND PT IS NOT ACTIVELY BLEEDING HE WILL HOLD OFF ON EGD/COLONOSCOPY. HE WILL CALL IN THE AM FOR H/H RESULTS.
[2019-07-29] VITALS (96 sets, daily range): BP systolic 68–123; BP diastolic 20–83
[2019-07-29] MEDS: METRONIDAZOLE 500MG/ NS 100ML 500 MG in PREMIX 1 EA IV SCH ×3 (04:44→20:53)
[2019-07-29 04:55] LABS: BASOPHILS # (AUTO) 0.1 /CMM (0.0-0.2); BASOPHILS % (AUTO) 0.3 % (0.0-2.0); EOSINOPHILS % (AUTO) 0.1 % (0.0-6.0); HEMATOCRIT 23 % (33-45); HEMOGLOBIN 7.6 g/dL (11.5-14.8); LYMPHOCYTES # (AUTO) 3.4 /CMM (0.8-4.8); LYMPHOCYTES % (AUTO) 19.2 % (20.0-44.0); MEAN CORPUSCULAR HGB CONC 33 g/dl (31.0-36.0); MEAN CORPUSCULAR VOLUME 103 fL (82-100); MONOCYTES # (AUTO) 1.2 /CMM (0.1-1.30); MONOCYTES % (AUTO) 6.7 % (2.0-12.0); NEUTROPHILS % (AUTO) 73.7 % (43.0-81.0); PLATELET COUNT (AUTO) 113 /CMM (150-450); RED BLOOD CELL COUNT(AUTO) 2.25 MIL/uL (4.0-5.2); WHITE BLOOD COUNT (AUTO) 17.7 K/uL (4.3-11.0)
[2019-07-29] MEDS: MEROPENEM 500 MG in IV NS 0.9% 50 ML IV SCH ×2 (05:12→17:24)
[2019-07-29] MEDS: LINEZOLID 600 MG TABLET PO SCH ×2 (05:28→17:24)
--- NOTE | 2019-07-29 06:35 | NUR ---
FLATBED DRIVER NOTE SPOKE WITH DR MERIDA STATING HE WILL HOLD OFF ON PROCEDURE FOR TODAY DUE TO PT STABLE H/H AND NO SIGNS OF BLEEDING AT THIS TIME.
--- NOTE | 2019-07-29 07:16 | NUR ---
AQUATIC CENTRE MANAGER NOTE PT REMAINED STABLE DURING SHIFT. NO ACUTE DISTRESS NOTED. ALL NEEDS ATTENDED TO PROMPTLY. KEPT CLEAN AND DRY. WILL ENDORSE TO NEXT SHIFT FOR CONTINUITY OF CARE.
[2019-07-29] MEDS: CLOTRIMAZOLE 1% 15 GM TUBE TP SCH ×2 (07:34→17:26)
[2019-07-29] MEDS: NEOMY SULF/BACITRAC ZN/POLY 15 GM TUBE TP SCH ×2 (07:34→17:31)
[2019-07-29] MEDS: NYSTATIN TOP POWDER 15 GM BOTTLE TP SCH ×3 (07:35→17:26)
--- NOTE | 2019-07-29 08:00 | NUR ---
DIRECTOR PHARMACOLOGY: pt.is A/Ox3, no pain now, no c/o now, SR, on Levophed gtt 6 mcg/min, SBP 90-110, continue titrate pressor, O2sat. over 94%, no SOB, W/c done by report, clear liquid diet+, EGD/colonoscopy on hold by report, H/H 7.6, no bleeding evidence by report, WBC 17.7
--- NOTE | 2019-07-29 08:30 | NUR ---
GRAPE PICKER: , were in room, updated with all above
[2019-07-29] MEDS: LACTOBACILLUS RHAMNOSUS GG 1 EACH CAP.SPRINK PO SCH ×2 (08:38→17:30)
[2019-07-29] MEDS: predniSONE 20 MG TABLET PO SCH (08:38)
[2019-07-29] MEDS: PANTOPRAZOLE 40 MG TABLET.DR PO SCH ×2 (08:38→17:30)
[2019-07-29] MEDS: ASCORBIC ACID 500 MG TABLET PO SCH (08:38)
[2019-07-29] MEDS: GABAPENTIN 400 MG CAPSULE PO SCH ×3 (08:38→17:30)
[2019-07-29] MEDS: NOREPINEPHRINE 16 MG in IV D5W 500 ML IV PRN (08:39)
[2019-07-29 08:47] LABS: ALBUMIN 3.6 g/dL (3.4-5.0); BILIRUBIN,TOTAL 2.3 mg/dL (0.2-1.0); CALCIUM, SERUM 9.3 mg/dL (8.5-10.1); CREATININE 3.7 mg/dL (0.6-1.3); MAGNESIUM 3.4 mg/dL (1.8-2.4); PHOSPHORUS 7.5 mg/dL (2.5-4.9); POTASSIUM 4.7 mmol/L (3.5-5.1); TOTAL PROTEIN, SERUM 6.7 g/dL (6.4-8.2)
--- NOTE | 2019-07-29 11:02 | NUR ---
JEWELLERY DESIGNER: updated with pt.status, VS, O2sat., Levophed gtt, plan: EGD, colonoscopy on hold
[2019-07-29] MEDS: ALBUTEROL FS 2.5 MG/3 ML VIAL.NEB NEB PRN ×2 (11:10→18:08)
--- NOTE | 2019-07-29 13:00 | NUR ---
CONTRACT ADMINISTRATOR: REGULO King is in room, updated with pt.current condition, VS, Levophed gtt, I/O, meds, diet, labs, plan for possible EGDS, colonoscopy
--- NOTE | 2019-07-29 18:00 | NUR ---
FLOWER ARRANGER: still on Levophed gtt, waiting HD today, no pain, no c/o, SR, SBP over 90, O2sat. over 94%, getting resp Tx, PM,skin,wounds care done, no BM per shift, Alta LUKASZNP was in room/updated
--- NOTE | 2019-07-29 19:28 | NUR ---
RN NOTE: RECEIVED PT ON BED ALERT AND ORIENTED X3. ABLE TO MAKE NEEDS KNOWN. NO APPARENT DISTRESS NOTED AT THIS TIME. NO COMPLAINTS OF PAIN OR DISCOMFORT. ON 2LPM NASAL CANNULA, NO SOB NOTED AT THIS TIME. ON BEDSIDE MONITOR AFIB CONTROLLED HR 100BPM. RIGHT UPPER ARM PICC LINE INTACT AND PATENT, LEVOPHED RUNNING AT 5MCG/MIN. KUO CATH INTACT AND DRAINING WELL. KEPT CLEAN, DRY AND COMFORTABLE. CALL LIGHT PLACED WITHIN REACH. WILL CONTINUE TO MONITOR PT. Addendum: 07/29/19 at 1935 by JAXON COURTNEY RN ON BEDSIDE MONITOR SINUS RHYTHM HR 100BPM.
--- NOTE | 2019-07-29 20:53 | NUR ---
RN NOTE: FLAGYL IV ATB NOT GIVEN. ONGOING HD AT THIS TIME.
--- NOTE | 2019-07-29 21:30 | NUR ---
RN NOTE: PT ONGOING HD AT THIS TIME. BP DROPPED TO 79/48, LEVO GTT INCREASED PER PROTOCOL. WILL CONTINUE TO MONITOR PT.
[2019-07-29] MEDS: SUCRALFATE 1 G TABLET PO SCH (21:58)
[2019-07-29] MEDS: POLYETHYLENE GLYCOL 3350 17 GM POWD.PACK PO SCH (21:58)
[2019-07-30] VITALS (99 sets, daily range): BP systolic 80–124; BP diastolic 34–64
--- NOTE | 2019-07-30 04:00 | NUR ---
RN NOTE: PT HAD 1X LARGE BOWEL MOVEMENT WITH SOFT BLACK STOOL. NO OTHER SIGNS/SYMPTOMS OF BLEEDING NOTED. WILL CONTINUE TO MONITOR PT.
[2019-07-30] MEDS: LINEZOLID 600 MG TABLET PO SCH ×2 (04:15→17:06)
[2019-07-30] MEDS: METRONIDAZOLE 500MG/ NS 100ML 500 MG in PREMIX 1 EA IV SCH ×3 (04:16→20:09)
[2019-07-30 04:49] LABS: BASOPHILS % (AUTO) 0.3 % (0.0-2.0); HEMATOCRIT 22 % (33-45); HEMOGLOBIN 7.1 g/dL (11.5-14.8); MEAN CORPUSCULAR HGB CONC 33 g/dl (31.0-36.0); MEAN CORPUSCULAR VOLUME 102 fL (82-100); MONOCYTES # (AUTO) 0.7 /CMM (0.1-1.30); MONOCYTES % (AUTO) 5.3 % (2.0-12.0); NEUTROPHILS # (AUTO) 10.7 /CMM (1.8-8.9); NEUTROPHILS % (AUTO) 79.4 % (43.0-81.0); PLATELET COUNT (AUTO) 86 /CMM (150-450); RED BLOOD CELL COUNT(AUTO) 2.12 MIL/uL (4.0-5.2); WHITE BLOOD COUNT (AUTO) 13.4 K/uL (4.3-11.0)
[2019-07-30 05:03] LABS: ALBUMIN 3.4 g/dL (3.4-5.0); BILIRUBIN,TOTAL 2.2 mg/dL (0.2-1.0); CALCIUM, SERUM 8.9 mg/dL (8.5-10.1); CREATININE 2.9 mg/dL (0.6-1.3); MAGNESIUM 2.8 mg/dL (1.8-2.4); PHOSPHORUS 5.8 mg/dL (2.5-4.9); POTASSIUM 4.8 mmol/L (3.5-5.1); TOTAL PROTEIN, SERUM 6.4 g/dL (6.4-8.2)
[2019-07-30] MEDS: MEROPENEM 500 MG in IV NS 0.9% 50 ML IV SCH ×2 (05:35→17:06)
--- NOTE | 2019-07-30 06:31 | NUR ---
RN NOTE: NO CHANGES NOTED THROUGHOUT THE SHIFT. NO APPARENT DISTRESS NOTED. DENIES PAIN AND DISCOMFORT AT THIS TIME. ON 2LPM NASAL CANNULA, SATURATING WELL. RIGHT UPPER ARM PICC LINE INTACT AND PATENT, STILL ON LEVO GTT, TITRATED BACK TO 5MCG/MIN BECAUSE BP WENT UP TO 122/59. KUO CATH INTACT, DRAINED 60ML OF URINE OUTPUT. KEPT CLEAN, DRY AND COMFORTABLE. CALL LIGHT PLACED WITHIN REACH. ALL NEEDS ATTENDED. WILL ENDORSE TO DAY SHIFT RN FOR CONTINUITY OF CARE.
[2019-07-30] MEDS: LACTOBACILLUS RHAMNOSUS GG 1 EACH CAP.SPRINK PO SCH ×2 (08:58→17:03)
[2019-07-30] MEDS: GABAPENTIN 400 MG CAPSULE PO SCH ×3 (08:58→17:03)
[2019-07-30] MEDS: NEOMY SULF/BACITRAC ZN/POLY 15 GM TUBE TP SCH ×2 (08:59→17:04)
[2019-07-30] MEDS: CLOTRIMAZOLE 1% 15 GM TUBE TP SCH ×2 (08:59→17:03)
[2019-07-30] MEDS: predniSONE 20 MG TABLET PO SCH (08:59)
[2019-07-30] MEDS: PANTOPRAZOLE 40 MG TABLET.DR PO SCH ×2 (08:59→17:03)
[2019-07-30] MEDS: ASCORBIC ACID 500 MG TABLET PO SCH (08:59)
[2019-07-30] MEDS: HYDROCODONE/APAP 5/325MG 1 EACH TABLET PO PRN ×2 (09:01→15:17)
[2019-07-30] MEDS: SUCRALFATE 1 G TABLET PO SCH ×4 (09:03→21:45)
[2019-07-30] MEDS ORDERED: NA PHOS,M-B/NA PHOS,DI-BA 1 EA ENEMA RC PRN (13:00)
[2019-07-30] MEDS ORDERED: PEG 3350/NA SULF,BICARB,CL/KCL 4,000 ML BOTTLE PO ONE (13:00)
[2019-07-30] MEDS ORDERED: MAGNESIUM CITRATE 296 ML BOTTLE PO ONE (13:00)
[2019-07-30] MEDS: NYSTATIN TOP POWDER 15 GM BOTTLE TP SCH ×3 (13:01→17:04)
[2019-07-30] MEDS: ALBUTEROL FS 2.5 MG/3 ML VIAL.NEB NEB PRN (18:25)
--- NOTE | 2019-07-30 20:00 | NUR ---
CONSULTING SOLUTION MANAGER - NOTES - RECEIVED PT IN BED ALERT AND ORIENTED X3. ABLE TO MAKE NEEDS KNOWN. NO APPARENT DISTRESS NOTED AT THIS TIME. NO COMPLAINTS OF PAIN OR DISCOMFORT. ON 2LPM NASAL CANNULA, NO SOB NOTED AT THIS TIME. ON BEDSIDE MONITOR SR/ST CONTROLLED HR 102 BPM. RIGHT UPPER ARM PICC LINE INTACT AND PATENT, LEVOPHED RUNNING AT 5 MCG/MIN. KUO CATH INTACT AND DRAINING MINIMAL URINE HORTENSIA. KEPT CLEAN, DRY AND COMFORTABLE. CALL LIGHT PLACED WITHIN REACH. WILL CONTINUE TO MONITOR PT
[2019-07-30] MEDS: POLYETHYLENE GLYCOL 3350 17 GM POWD.PACK PO SCH (21:45)
[2019-07-30] MEDS: ONDANSETRON HCL/PF 4 MG/2 ML VIAL IVP PRN (23:35)
[2019-07-31] VITALS (98 sets, daily range): BP systolic 81–133; BP diastolic 34–82
[2019-07-31 04:49] LABS: BASOPHILS % (AUTO) 0.2 % (0.0-2.0); LYMPHOCYTES # (AUTO) 2.5 /CMM (0.8-4.8); MEAN CORPUSCULAR HGB CONC 33 g/dl (31.0-36.0); MEAN CORPUSCULAR VOLUME 103 fL (82-100); MONOCYTES # (AUTO) 1.1 /CMM (0.1-1.30); MONOCYTES % (AUTO) 6.4 % (2.0-12.0); NEUTROPHILS # (AUTO) 13.2 /CMM (1.8-8.9); NEUTROPHILS % (AUTO) 78.4 % (43.0-81.0); PLATELET COUNT (AUTO) 75 /CMM (150-450); WHITE BLOOD COUNT (AUTO) 16.8 K/uL (4.3-11.0)
[2019-07-31] MEDS: METRONIDAZOLE 500MG/ NS 100ML 500 MG in PREMIX 1 EA IV SCH ×3 (05:05→20:27)
[2019-07-31 05:13] LABS: CALCIUM, SERUM 9.1 mg/dL (8.5-10.1); CREATININE 3.2 mg/dL (0.6-1.3); PHOSPHORUS 6.5 mg/dL (2.5-4.9); POTASSIUM 4.8 mmol/L (3.5-5.1)
[2019-07-31 05:20] LABS: HEMATOCRIT 20 % (33-45); HEMOGLOBIN 6.4 g/dL (11.5-14.8); RED BLOOD CELL COUNT(AUTO) 1.91 MIL/uL (4.0-5.2)
[2019-07-31 05:24] LABS: MAGNESIUM 5.1 mg/dL (1.8-2.4)
--- NOTE | 2019-07-31 05:30 | NUR ---
pt is aox4, she agreed to consent for EGD, colonoscopy, anesthesia, and blood transfusion. pt was too weak to hold pen and sign, so she agreed to give a verbal consent which was witnessed by 2 RNs, timber harvester operator Ed and me.
--- NOTE | 2019-07-31 05:50 | NUR ---
dr kuo notified of critical hemoglobin 6.4 and hematocrit 20, also mag 5.1. 1 unit prbc ordered
[2019-07-31 06:02] LABS: LYMPHOCYTES % (MANUAL) 11 % (16-48); MONOCYTES % (MANUAL) 4 % (0-11.0); NEUTROPHILS % (MANUAL) 85 (42-76)
[2019-07-31] MEDS: MEROPENEM 500 MG in IV NS 0.9% 50 ML IV SCH ×2 (06:04→18:01)
[2019-07-31] MEDS: SUCRALFATE 1 G TABLET PO SCH ×4 (07:30→21:52)
--- NOTE | 2019-07-31 07:39 | NUR ---
CLIN TECH NOTES RECEIVED BEDSIDE REPORT. PATIENT A/O X4 BED BOUND MORBIDLY OBESE. NO SIGNS OR SYMPTOMS OF RESPIRATORY DISTRESS ON 2 LTRS NASAL CANNULA. SINUS ON THE MONITOR WITH EPISODES OF TACHY. KUO CATH DRAINING DARK YELLOW URINE. THOMAS PICC LINE RUNNING LEVO @ 5 MCG /MN RIJ HD CATH DRESSING CLEAN AND DRY. PER NOC NURSE CRITICAL LABS CALLED TO DR GARRETT. PT SCHEDULED FOR EGD @ 0900 ALL PREP AND PRE-OP CONSENTS SIGNED AND COMPLETED. SAFETY AND ASPIRATION PRECAUTIONS IN PLACE BED IN LOW LOCKED POSITION WILL CONT TO MONITOR ACCORDINGLY.
--- NOTE | 2019-07-31 08:00 | NUR ---
CALL SURGERY TO VERIFY IF THEY WANT TO START BLOOD ON THE UNIT OR IN SURGERY . TOLD TO START ON UNIT
--- NOTE | 2019-07-31 08:15 | NUR ---
BLOOD TRANSFUSION STARTED VERIFIED BY 2 RNS. WILL MONITOR FOR ANY REACTIONS
[2019-07-31] MEDS: LACTOBACILLUS RHAMNOSUS GG 1 EACH CAP.SPRINK PO SCH ×2 (08:24→16:46)
[2019-07-31] MEDS: predniSONE 20 MG TABLET PO SCH (08:24)
[2019-07-31] MEDS: PANTOPRAZOLE 40 MG TABLET.DR PO SCH ×2 (08:24→16:46)
[2019-07-31] MEDS: GABAPENTIN 400 MG CAPSULE PO SCH ×3 (08:24→16:46)
[2019-07-31] MEDS: ASCORBIC ACID 500 MG TABLET PO SCH (08:25)
[2019-07-31] MEDS: CLOTRIMAZOLE 1% 15 GM TUBE TP SCH ×2 (08:25→16:46)
[2019-07-31] MEDS: NEOMY SULF/BACITRAC ZN/POLY 15 GM TUBE TP SCH ×2 (08:25→16:46)
[2019-07-31] MEDS: NYSTATIN TOP POWDER 15 GM BOTTLE TP SCH ×3 (08:25→16:46)
[2019-07-31] MEDS ORDERED: ANESTHESIA TRAY IN PYXIS 1 EA TRAY MC ONE (08:28)
[2019-07-31] MEDS ORDERED: TETRACAINE/BENZOCAINE/BUTAMBEN 56 GM SPRAY TP ONE (09:01)
--- NOTE | 2019-07-31 09:01 | NUR ---
WAS ENDORSED BY EILEEN SORENSEN THAT HE COLLECTED STOOL FOR CDIFF BUT PATIENT HAS TAKEN BOWEL PREP AND SAMPLE NOT VALID
[2019-07-31] MEDS: HYDROCORTISONE SOD SUCCINATE 100 MG/2 ML VIAL IV SCH ×3 (10:53→16:48)
[2019-07-31] MEDS: ALBUTEROL FS 2.5 MG/3 ML VIAL.NEB NEB PRN (11:46)
[2019-07-31] MEDS: NOREPINEPHRINE 16 MG in IV D5W 500 ML IV PRN (12:23)
[2019-07-31] MEDS ORDERED: MIDAZOLAM HCL 2 MG/2ML VIAL ONE ×2 (12:59→13:00)
[2019-07-31] MEDS ORDERED: ROCURONIUM BROMIDE 50 MG/5 ML ONE (13:00)
--- NOTE | 2019-07-31 13:42 | NUR ---
LEFT MESSAGE WITH GERARDO FROM INFECTION CONTROL IN REGARDS TO CDIFF COLLECTION FOR PATIENT. STOOL WAS COLLECTED BUT PATIENT DOES NOT FIT PROTOCOL HAS BEEN ON AND OFF BOWEL PREP FOR EGD FOR THE LAT WEEK.
[2019-07-31] MEDS ORDERED: LIDOCAINE 2% JEL UROJET 10 ML MM ONE (13:47)
[2019-07-31] MEDS ORDERED: LIDOCAINE HCL/PF 2 % 5ML SDV 5 ML VIAL ONE (13:51)
[2019-07-31] MEDS ORDERED: NOREPINEPHRINE 4 MG/4 ML AMPUL IV ONE (13:52)
[2019-07-31] MEDS ORDERED: LIDOCAINE 4% PF AMPUL 40 MG/ML AMPUL ONE (13:53)
--- NOTE | 2019-07-31 14:15 | NUR ---
PATIENT LEFT FOR EGD VIA BED
--- NOTE | 2019-07-31 15:15 | NUR ---
RT PT INTUBATED POST SURGERY BY MD. TRANSPORT PT FROM SURGERY BACK TO ICU. PLACED PT ON VENT. VENT SETTINGS GIVEN BY SURGERY MD. AC 14 VT 600 40% +5. PER MD PT 7.0 ETT MARKED @ 25CM AT LIP. PT TOLERATING SETTINGS WELL. AIRWAY SECURED WITH ANCHOR FAST. VENT PLUGGED IN RED OUTLET. ALARMS CHECKED AND AUDIBLE. SX WITH MOD THN PINK TINGED SECRETIONS. WILL CONTINUE TO MONITOR T/O SHIFT.
--- NOTE | 2019-07-31 15:16 | NUR ---
PT RETURNED FROM EGD INTUBATED. 05.12 @ LIP WILL ORDER CXR FOR PLACEMENT. ORDERS OBTAINED FROM SURGERY AND FAXED TO RX
--- NOTE | 2019-07-31 15:57 | NUR ---
RADIOLOGY MD REPORT FROM CXR OF ETT CONFIRMATION . ETT NEEDS TO BE PULLED OUT 4 INCHES. RT CALLED AND ENDORSED
[2019-07-31] MEDS: PROPOFOL 100 ML IV PRN ×2 (16:02→21:57)
--- NOTE | 2019-07-31 18:34 | NUR ---
CERTIFIED MEETING PROFESSIONAL NOTES PATIENT REMAINS INTUBATED AT THIS TIME . NO SIGNS OR SYMPTOMS OF RESPIRATORY DISTRESS TOLERATING VENT SETTINGS ORDERED. ETT 7.5 @ LIP. NO ACUTE PAIN NOTED. PASSING FLATUS NO BM SINCE PROCEDURE. THOMAS PICC RUNNING LEVO @ 6MCG/MIN AND PROPOFOL @ 10 MCG/MIN. BILATERAL WRIST RESTRAINTS APPLIED FOR PULLING AT LINES AND TUBES. DIALYSIS TO BE DONE THIS EVENING. SAFETY AND ASPIRATION PRECAUTIONS IN PLACE IN BED LOW LOCKED POSITION WILL ENDORSE TO NOC
--- NOTE | 2019-07-31 18:41 | NUR ---
NAT INSTRUCTOR NOTES PATIENT REMAINED STABLE THROUGHOUT THE DAY. TOLERATED COOL AEROSOL MOST OF DAY PLACED BACK ON CPAP @ 1700 FOR DISTRESS. NO C/O PAIN NOTED. AM CARE DONE ORAL CARE DONE. REPOSITIONED Q2HR KEPT CLEAN AND DRY. OGT RUNNING JEVITY 1.2 @ 60ML/HR NO RESIDUAL NOTED. THOMAS MIDLINE PATENT TKO RIGHT HAND # 20 GAUGE SALINE LOCK. SAFETY AND ASPIRATION PRECAUTIONS IN PLACE BED IN LOW LOCKED POSITION ALL NEEDS MET BY STAFF.
--- NOTE | 2019-07-31 20:00 | NUR ---
SENIOR CONSTRUCTION ESTIMATOR - NOTES - PATIENT RECEIVED INTUBATED AT THIS TIME . NO SIGNS OR SYMPTOMS OF RESPIRATORY DISTRESS TOLERATING VENT SETTINGS ORDERED. ETT 7.5 @ LIP. NO ACUTE PAIN NOTED. PASSING FLATUS NO BM SINCE PROCEDURE. THOMAS PICC RUNNING LEVO @ 10 MCG/MIN AND PROPOFOL @ 10 MCG/MIN. BILATERAL WRIST RESTRAINTS APPLIED FOR PULLING AT LINES AND TUBES. DIALYSIS ONGOING. SAFETY AND ASPIRATION PRECAUTIONS IN PLACE IN BED LOW LOCKED POSITION WILL ENDORSE TO NOC
[2019-07-31] MEDS: POLYETHYLENE GLYCOL 3350 17 GM POWD.PACK PO SCH (21:52)
[2019-08-01] VITALS (93 sets, daily range): BP systolic 67–152; BP diastolic 24–82
[2019-08-01] MEDS: PROPOFOL 100 ML IV PRN (01:08)
[2019-08-01 04:18] LABS: LYMPHOCYTES # (AUTO) 1.9 /CMM (0.8-4.8); LYMPHOCYTES % (AUTO) 15.3 % (20.0-44.0); MEAN CORPUSCULAR HGB CONC 33 g/dl (31.0-36.0); MEAN CORPUSCULAR VOLUME 100 fL (82-100); MONOCYTES # (AUTO) 0.9 /CMM (0.1-1.30); NEUTROPHILS # (AUTO) 9.8 /CMM (1.8-8.9); NEUTROPHILS % (AUTO) 77.7 % (43.0-81.0); WHITE BLOOD COUNT (AUTO) 12.6 K/uL (4.3-11.0)
[2019-08-01 04:32] LABS: CALCIUM, SERUM 8.9 mg/dL (8.5-10.1); CREATININE 2.7 mg/dL (0.6-1.3); PHOSPHORUS 5.4 mg/dL (2.5-4.9); POTASSIUM 4.7 mmol/L (3.5-5.1)
[2019-08-01 04:37] LABS: MAGNESIUM 4.3 mg/dL (1.8-2.4)
[2019-08-01 04:42] LABS: RED BLOOD CELL COUNT(AUTO) 1.93 MIL/uL (4.0-5.2)
[2019-08-01 04:45] LABS: HEMATOCRIT 19 % (33-45); HEMOGLOBIN 6.4 g/dL (11.5-14.8)
[2019-08-01 04:46] LABS: PLATELET COUNT (AUTO) 44 /CMM (150-450)
[2019-08-01] MEDS: MEROPENEM 500 MG in IV NS 0.9% 50 ML IV SCH ×2 (05:29→18:03)
[2019-08-01] MEDS: METRONIDAZOLE 500MG/ NS 100ML 500 MG in PREMIX 1 EA IV SCH (05:29)
[2019-08-01 05:51] LABS: LYMPHOCYTES % (MANUAL) 10 % (16-48); METAMYELOCYTES % 1 % (0-0); MONOCYTES % (MANUAL) 2 % (0-11.0); NEUTROPHILS % (MANUAL) 87 (42-76)
--- NOTE | 2019-08-01 06:20 | NUR ---
dr kuo notified of critical hemoglobin 6.4 and hematocrit 19.3, plt 44, and mag 4.3. 1 unit prbc ordered
--- NOTE | 2019-08-01 07:18 | NUR ---
CO PILOT NOTES RECEIVED BEDSIDE REPORT FROM NOC PATIENT SEDATED ON 20 MCG/MIN OF PROPOFOL WILL TITRATE FRO SEDATION VACATION. NO SIGNS OR SYMPTOMS OF RESPIRATORY DISTRESS ETT TUBE 7.03/28@ THE LIP OR ACUTE PAIN NOTED. NORMAL SINUS /TACHY ON MONITOR LOW 100'S. KUO CATH DRAINING CLEAR RED TINGED URINE. OGT PLACED FOR MEDS PER NOC HGB 6.4 ORDERS FOR BLOOD TRANSFUSION IF >7 THOMAS PIC LINE PATENT RUNNING LEVO @ 4 MCG/MIN. SAFETY AND ASPIRATION PRECAUTIONS IN LACE BED IN LOW LOCKED POSITION WILL CONT TO MONITOR ACCORDINGLY
[2019-08-01] MEDS ORDERED: diphenhydrAMINE HCL ELIX 25 MG/10 ML UDC GT PRN (07:55)
[2019-08-01] MEDS ORDERED: DOCUSATE SODIUM LIQ 100 MG/10 ML UDC GT PRN (07:55)
[2019-08-01] MEDS ORDERED: POLYETHYLENE GLYCOL 3350 17 GM POWD.PACK GT SCH (07:56)
[2019-08-01] MEDS ORDERED: LACTOBACILLUS RHAMNOSUS GG 1 EACH CAP.SPRINK GT SCH (07:56)
[2019-08-01] MEDS ORDERED: ASCORBIC ACID 500 MG TABLET GT SCH (07:57)
[2019-08-01] MEDS ORDERED: HYDROCODONE/APAP 5/325MG 1 EACH TABLET GT PRN (07:57)
--- NOTE | 2019-08-01 08:00 | NUR ---
PATIENT PLACED ON SEDATION VACATION
[2019-08-01] MEDS: HYDROCORTISONE SOD SUCCINATE 100 MG/2 ML VIAL IV SCH ×3 (08:12→17:20)
[2019-08-01] MEDS: GABAPENTIN 400 MG CAPSULE PO SCH ×3 (08:14→17:20)
[2019-08-01] MEDS: NEOMY SULF/BACITRAC ZN/POLY 15 GM TUBE TP SCH ×2 (08:14→17:20)
[2019-08-01] MEDS: CLOTRIMAZOLE 1% 15 GM TUBE TP SCH ×2 (08:14→17:20)
[2019-08-01] MEDS: NYSTATIN TOP POWDER 15 GM BOTTLE TP SCH ×3 (08:14→17:20)
--- NOTE | 2019-08-01 08:48 | NUR ---
RT PATIENT WAS ON SIMV WEANING MODE PER MD ORDER. ALARMS CHECKED + AUDIBLE. PATIENT AWAKE AND RESPONDING. WILL CONT TO MONITOR CLOSELY. Addendum: 08/01/19 at 0850 by ERNESTO HAIDER RT Amended: Links added.
[2019-08-01] MEDS ORDERED: DC PROPOFOL WHEN EXTUBATED XX PRN (09:00)
[2019-08-01] MEDS ORDERED: predniSONE 20 MG TABLET GT SCH (09:00)
[2019-08-01] MEDS ORDERED: PANTOPRAZOLE 40 MG/PACK PACK GT SCH (09:00)
[2019-08-01] MEDS ORDERED: ESOMEPRAZOLE MAGNESIUM 40 MG SUSPDR.PKT GT SCH (09:00)
[2019-08-01 09:58] LABS: ABG BASE EXCESS 1.1 mmol/L; ABG OXYGEN SATURATION 97.9 % (92.0-98.5); ABG PCO2 39.8 mmHg (35.0-45.0); ABG PH 7.425 (7.350-7.450); ABG PO2 132.2 mmHg (75.0-100.0); AaDO2 107.2 mmHg; COHb 0.9 % (0.5-1.5); PEEP,BG 5 cm H2O; SITE, ABG Right Radial; VT, ABG 600 mL
--- NOTE | 2019-08-01 10:04 | NUR ---
PATIENT HGB 6.4 STARTED 1 UNIT PRBC
--- NOTE | 2019-08-01 10:09 | NUR ---
PATIENT EXTUBATED PER DR RODRÍGUEZ ABGS 7.425 39.8 25.5
--- NOTE | 2019-08-01 10:18 | NUR ---
RT PER DR RODRÍGUEZ PATIENT WAS WEANED AND EXTUBATED. PLACED ON 3L N/C JOVI WELL.
[2019-08-01] MEDS ORDERED: PHARMACY TO CHANGE GT/NG MEDS TO PO XX PRN (10:30)
[2019-08-01] MEDS ORDERED: diphenhydrAMINE HCL ELIX 25 MG/10 ML UDC PO PRN (10:56)
[2019-08-01] MEDS ORDERED: ESOMEPRAZOLE MAGNESIUM 40 MG SUSPDR.PKT PO SCH (10:57)
[2019-08-01] MEDS ORDERED: DOCUSATE SODIUM LIQ 100 MG/10 ML UDC PO PRN (10:57)
--- NOTE | 2019-08-01 13:10 | NUR ---
SPOKE WITH MARGARITA WOLFF [phone] PATIENTS NIECE TO INFORM HER THAT AUNT WAS TRANSFERRED TO ICU.
--- NOTE | 2019-08-01 13:15 | NUR ---
BLOOD TRANSFUSION COMPLETE NO ADVERSE RXN NOTED
[2019-08-01] MEDS: METRONIDAZOLE 500 MG TABLET PO SCH ×2 (14:49→21:51)
[2019-08-01] MEDS: SUCRALFATE 1 G TABLET GT SCH ×3 (14:50→21:51)
[2019-08-01] MEDS: LACTOBACILLUS RHAMNOSUS GG 1 EACH CAP.SPRINK PO SCH (17:20)
--- NOTE | 2019-08-01 18:00 | NUR ---
PATIENT TOLERATED DINNER CLEAR LIQUID
[2019-08-01] MEDS ORDERED: ACETAMINOPHEN 325 MG TABLET PO ONE (18:30)
[2019-08-01] MEDS ORDERED: diphenhydrAMINE HCL 50 MG/ML VIAL IV ONE (18:30)
--- NOTE | 2019-08-01 19:21 | NUR ---
SENIOR FIREWALL ENGINEER NOTES NO SIGNIFICANT CHANGES THROUGHOUT THE SHIFT. PATIENT REMAINED STABLE NO SIGNS OR SYMPTOMS OF RESPIRATORY DISTRESS ON 2 LTRS NASAL CANNULA OR PAIN NOTED. WOUND CARE DONE WITH ARTEMIO BED BATH GIVEN . PATIENT REMAINS NORMAL SINUS /SINUS TACHY LOW 100'S. KUO CATH DRAINING HORTENSIA /HEMATURIA MINIMAL AMOUNTS. THOMAS PICC RUNNING LEVO @ 4 MCG/MIN WITH MAP MAINTAINING >65. HD TODAY WITH 2 LTRS REMOVED. REPOSITIONED FOR COMFORT 100% DINNER OF CLEAR LIQUID CONSUMED.SAFETY AND ASPIRATION PRECAUTIONS IN PLACE BED IN LOW LOCKED POSITION WILL ENDORSE TO NOC
[2019-08-01] MEDS ORDERED: CT SWABBABLE VALVE TRANS SET 1 EA INFUS.SET MC ONE (19:26)
[2019-08-01] MEDS ORDERED: IV NS 0.9% 250 ML IV ONE (19:26)
[2019-08-01] MEDS ORDERED: IOHEXOL-350 100 ML VIAL IV ONE (19:26)
--- NOTE | 2019-08-01 20:00 | NUR ---
FORECLOSURE PARALEGAL - NOTES - PATIENT RECEIVED STABLE NO SIGNS OR SYMPTOMS OF RESPIRATORY DISTRESS ON 2 L NASAL CANNULA. PATIENT IS IN NORMAL SINUS /SINUS TACHY LOW 100'S. KUO CATH DRAINING HORTENSIA MINIMAL AMOUNTS. THOMAS PICC RUNNING LEVO @ 4 MCG/MIN WITH MAP MAINTAINING >65. REPOSITIONED FOR COMFORT 100% DINNER OF CLEAR LIQUID CONSUMED.SAFETY AND ASPIRATION PRECAUTIONS IN PLACE BED IN LOW LOCKED POSITION WILL ENDORSE TO NOC
[2019-08-01] MEDS: POLYETHYLENE GLYCOL 3350 17 GM POWD.PACK PO SCH (21:49)
[2019-08-01] MEDS: PANTOPRAZOLE 40 MG TABLET.DR PO SCH (21:51)
[2019-08-02] VITALS (36 sets, daily range): BP systolic 83–134; BP diastolic 35–81
[2019-08-02 04:22] LABS: BASOPHILS % (AUTO) 0.1 % (0.0-2.0); LYMPHOCYTES # (AUTO) 1.3 /CMM (0.8-4.8); LYMPHOCYTES % (AUTO) 12.7 % (20.0-44.0); MEAN CORPUSCULAR HGB CONC 34 g/dl (31.0-36.0); MEAN CORPUSCULAR VOLUME 98 fL (82-100); MONOCYTES # (AUTO) 0.9 /CMM (0.1-1.30); MONOCYTES % (AUTO) 8.5 % (2.0-12.0); NEUTROPHILS # (AUTO) 8.1 /CMM (1.8-8.9); NEUTROPHILS % (AUTO) 78.7 % (43.0-81.0); WHITE BLOOD COUNT (AUTO) 10.3 K/uL (4.3-11.0)
[2019-08-02 04:50] LABS: CALCIUM, SERUM 9.1 mg/dL (8.5-10.1); CREATININE 2.4 mg/dL (0.6-1.3); POTASSIUM 3.9 mmol/L (3.5-5.1)
[2019-08-02 04:51] LABS: BILIRUBIN,TOTAL 2.1 mg/dL (0.2-1.0); MAGNESIUM 3.5 mg/dL (1.8-2.4); TOTAL PROTEIN, SERUM 5.2 g/dL (6.4-8.2)
[2019-08-02 05:22] LABS: RED BLOOD CELL COUNT(AUTO) 1.89 MIL/uL (4.0-5.2)
[2019-08-02] MEDS: METRONIDAZOLE 500 MG TABLET PO SCH ×3 (05:22→21:04)
[2019-08-02 05:24] LABS: HEMATOCRIT 19 % (33-45); HEMOGLOBIN 6.3 g/dL (11.5-14.8)
[2019-08-02 05:25] LABS: PLATELET COUNT (AUTO) 48 /CMM (150-450)
[2019-08-02 05:52] LABS: LYMPHOCYTES % (MANUAL) 7 % (16-48); MONOCYTES % (MANUAL) 4 % (0-11.0); NEUTROPHILS % (MANUAL) 89 (42-76)
--- NOTE | 2019-08-02 07:05 | NUR ---
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 NO SOB OR ACUTE SIGNS OF DISTRESS NOTED. BREATHING IS EVEN AND UNLABORED. PT ON 2L VIA NC AND SATING WELL. VITALS STABLE. PT SET TO RECEIVE 1 UNIT OF PRBC. VSS. SHE REMAINS SR ON MONITOR. RIGHT UPPER ARM PICC NOTED TO BE C/D/I. GOOD BLOOD RETURN NOTED. RIGHT IJ NOTED TO BE C/D/I. BED IN LOW LOCKED POSITION, SIDE RAILS UP X2, CALL LIGHT WITHIN REACH, ISOLATION PRECAUTIONS OBSERVED. WILL CONTINUE TO MONITOR
[2019-08-02] MEDS ORDERED: PANTOPRAZOLE 40 MG/PACK PACK PO SCH (09:00)
[2019-08-02] MEDS: NEOMY SULF/BACITRAC ZN/POLY 15 GM TUBE TP SCH ×2 (09:30→17:06)
[2019-08-02] MEDS: CLOTRIMAZOLE 1% 15 GM TUBE TP SCH ×2 (09:31→17:06)
[2019-08-02] MEDS: LACTOBACILLUS RHAMNOSUS GG 1 EACH CAP.SPRINK PO SCH ×2 (09:31→16:32)
[2019-08-02] MEDS: NYSTATIN TOP POWDER 15 GM BOTTLE TP SCH ×3 (09:31→17:06)
[2019-08-02] MEDS: HYDROCORTISONE SOD SUCCINATE 100 MG/2 ML VIAL IV SCH ×3 (09:31→16:33)
[2019-08-02] MEDS: predniSONE 20 MG TABLET PO SCH (09:32)
[2019-08-02] MEDS: GABAPENTIN 400 MG CAPSULE PO SCH ×3 (09:32→16:32)
[2019-08-02] MEDS: SUCRALFATE 1 G TABLET GT SCH ×4 (09:32→21:04)
[2019-08-02] MEDS: PANTOPRAZOLE 40 MG TABLET.DR PO SCH ×2 (09:32→21:04)
[2019-08-02] MEDS: ASCORBIC ACID 500 MG TABLET PO SCH (09:32)
[2019-08-02] MEDS: ALBUTEROL FS 2.5 MG/3 ML VIAL.NEB NEB PRN (14:05)
[2019-08-02] MEDS: ALBUMIN 25% 25 GM in PREMIX 1 EA IV PRN (16:32)
--- NOTE | 2019-08-02 17:00 | NUR ---
PT S/P HD. 2400 ML REMOVED
--- NOTE | 2019-08-02 19:23 | NUR ---
SOLAR ENERGY INSTALLATION MANAGER CLOSING NOTES PT REMAINS STABLE OFF LEVO. 1UNIT OF PRBC TRANSFUSED ORDERED. PT TOLERATED TRANSFUSION WELL. NO S/S OF REACTION NOTED. VSS. ALL NEEDS MET DURING SHIFT AND ORDERS CARRIED OUT ACCORDINGLY. DUE MEDS GIVEN. SAFETY AND ISOLATION PRECAUTIONS REMAIN IN PLACE. ENDORSE TO NIGHTSHIFT RN FOR JOSE ROBERTO
--- NOTE | 2019-08-02 20:54 | NUR ---
RN NOTE PATIENT IS ALERT/AWAKE/ORIENTED X 4, NO RESPIRATORY DISTRESS NOTED, PT ON 2L/MIN VIA NASAL CANULA, TOLERATES WELL. VITALS STABLE. STATUS POST 1 UNIT OF PRBC, SINUS RYTHM ON THE MONITOR, RIGHT UPPER ARM PICC NOTED, NO S/S OF INFECTION/INFILTRATION NOTED. RIGHT IJ NOTED TO BE C/D/I, BED IN LOW LOCKED POSITION, SIDE RAILS UP X2, CALL LIGHT WITHIN REACH, ISOLATION PRECAUTIONS OBSERVED. WILL CONTINUE TO MONITOR PATIENT
[2019-08-02] MEDS: POLYETHYLENE GLYCOL 3350 17 GM POWD.PACK PO SCH (21:05)
--- NOTE | 2019-08-02 21:05 | NUR ---
RN NOTE MIRALAX ON HOLD DUE TO LOOSE STOOL, MD IS AWARE
[2019-08-03] VITALS (28 sets, daily range): BP systolic 89–154; BP diastolic 33–85
[2019-08-03 04:28] LABS: BASOPHILS % (AUTO) 0.1 % (0.0-2.0); LYMPHOCYTES # (AUTO) 1.5 /CMM (0.8-4.8); LYMPHOCYTES % (AUTO) 13.9 % (20.0-44.0); MEAN CORPUSCULAR HGB CONC 35 g/dl (31.0-36.0); MEAN CORPUSCULAR VOLUME 97 fL (82-100); MONOCYTES # (AUTO) 1.1 /CMM (0.1-1.30); MONOCYTES % (AUTO) 10.7 % (2.0-12.0); NEUTROPHILS % (AUTO) 75.3 % (43.0-81.0); WHITE BLOOD COUNT (AUTO) 10.7 K/uL (4.3-11.0)
[2019-08-03 04:39] LABS: CALCIUM, SERUM 9.4 mg/dL (8.5-10.1); CREATININE 2.2 mg/dL (0.6-1.3); PHOSPHORUS 4.4 mg/dL (2.5-4.9)
[2019-08-03 05:01] LABS: RED BLOOD CELL COUNT(AUTO) 1.96 MIL/uL (4.0-5.2)
[2019-08-03 05:03] LABS: HEMATOCRIT 19 % (33-45); HEMOGLOBIN 6.6 g/dL (11.5-14.8); PLATELET COUNT (AUTO) 33 /CMM (150-450)
[2019-08-03 05:14] LABS: BAND % (MANUAL) 2 % (0.0-5.0); LYMPHOCYTES % (MANUAL) 12 % (16-48); MONOCYTES % (MANUAL) 9 % (0-11.0); NEUTROPHILS % (MANUAL) 77 (42-76)
[2019-08-03] MEDS: METRONIDAZOLE 500 MG TABLET PO SCH ×3 (05:33→21:25)
--- NOTE | 2019-08-03 05:45 | NUR ---
RN NOTE RECEIVED CALL FROM LAB, HEMOGLOBIN OF 6.6 AND PLATELETS 33, NOTIFIED DR DOOLEY, ORDER OF 1 UNIT OF PRBC GIVEN, LAB IS AWARE, PER [facility] LAB TECHICIAN WILL BE READY IN 1 HOUR
[2019-08-03] MEDS: SUCRALFATE 1 G TABLET GT SCH ×4 (08:03→21:23)
--- NOTE | 2019-08-03 08:59 | NUR ---
received pt from restaurant shift leader, alert, follows commands, SR, on 2L 02 sat well, rectal tube in diarrhea, f/c low output, HD pt, 1 unit PRBCs is transfusing, v/s stable, no pain, pt turned and repositioned.
[2019-08-03] MEDS: ASCORBIC ACID 500 MG TABLET PO SCH (09:19)
[2019-08-03] MEDS: HYDROCORTISONE SOD SUCCINATE 100 MG/2 ML VIAL IV SCH ×2 (09:19→17:01)
[2019-08-03] MEDS: LACTOBACILLUS RHAMNOSUS GG 1 EACH CAP.SPRINK PO SCH ×2 (09:19→17:01)
[2019-08-03] MEDS: PANTOPRAZOLE 40 MG TABLET.DR PO SCH ×2 (09:19→21:24)
[2019-08-03] MEDS: GABAPENTIN 400 MG CAPSULE PO SCH ×3 (09:19→17:02)
[2019-08-03] MEDS: CLOTRIMAZOLE 1% 15 GM TUBE TP SCH ×2 (09:20→16:27)
[2019-08-03] MEDS: predniSONE 20 MG TABLET PO SCH (09:20)
[2019-08-03] MEDS: NEOMY SULF/BACITRAC ZN/POLY 15 GM TUBE TP SCH ×2 (09:21→16:28)
[2019-08-03] MEDS: NYSTATIN TOP POWDER 15 GM BOTTLE TP SCH ×3 (09:21→16:27)
--- NOTE | 2019-08-03 11:17 | NUR ---
1 unit PRBCs transfused, v/s stable, no transfusion reactions.
--- NOTE | 2019-08-03 16:24 | NUR ---
pt is resting in the bed, a/o x4, SR, on 2 L 02 sat well, v/s stable, no pain, pt cleaned, changed and repositioned.
[2019-08-03] MEDS ORDERED: diphenhydrAMINE HCL 50 MG/ML VIAL IV ONE (20:00)
[2019-08-03] MEDS ORDERED: ACETAMINOPHEN 325 MG TABLET PO ONE (20:00)
[2019-08-03] MEDS: POLYETHYLENE GLYCOL 3350 17 GM POWD.PACK PO SCH (21:25)
[2019-08-04] VITALS (33 sets, daily range): BP systolic 94–131; BP diastolic 40–62
[2019-08-04 04:35] LABS: BASOPHILS % (AUTO) 0.1 % (0.0-2.0); HEMATOCRIT 22 % (33-45); HEMOGLOBIN 7.2 g/dL (11.5-14.8); LYMPHOCYTES # (AUTO) 2.6 /CMM (0.8-4.8); LYMPHOCYTES % (AUTO) 15.3 % (20.0-44.0); MEAN CORPUSCULAR HGB CONC 34 g/dl (31.0-36.0); MEAN CORPUSCULAR VOLUME 98 fL (82-100); MONOCYTES # (AUTO) 2.4 /CMM (0.1-1.30); NEUTROPHILS # (AUTO) 11.9 /CMM (1.8-8.9); NEUTROPHILS % (AUTO) 70.6 % (43.0-81.0); PLATELET COUNT (AUTO) 63 /CMM (150-450)
[2019-08-04 04:46] LABS: CALCIUM, SERUM 9.4 mg/dL (8.5-10.1); CREATININE 2.8 mg/dL (0.6-1.3); PHOSPHORUS 4.9 mg/dL (2.5-4.9); POTASSIUM 4.1 mmol/L (3.5-5.1)
[2019-08-04] MEDS: METRONIDAZOLE 500 MG TABLET PO SCH ×3 (05:14→21:15)
--- NOTE | 2019-08-04 06:20 | NUR ---
RN NOTES PATIENT IN BED WITH NO APPARENT DISTRESS. BREATHING EVEN AND UNLABORED. O2 AT 2LPM VIA NASAL CANNULA WELL TOLERATED. PLATELET WENT DOWN TO 31, TRANSFUSE 1 BAG. NO ADVERSE EFFECT NOTED. VITAL SIGNS WNL. PLATELET WENT UP TO 63. NO COMPLAINT OF PAIN OR DISCOMFORT. ALERT AND ORIENTED X 4. ABLE TO VERBALIZE NEEDS. KEPT CLEAN AND DRY. WILL ENDORSE TO NEXT FOR CONTINUITY OF CARE.
[2019-08-04] MEDS: predniSONE 20 MG TABLET PO SCH (08:05)
[2019-08-04] MEDS: LACTOBACILLUS RHAMNOSUS GG 1 EACH CAP.SPRINK PO SCH ×2 (08:05→16:34)
[2019-08-04] MEDS: GABAPENTIN 400 MG CAPSULE PO SCH ×3 (08:05→16:34)
[2019-08-04] MEDS: HYDROCORTISONE SOD SUCCINATE 100 MG/2 ML VIAL IV SCH ×2 (08:05→16:33)
[2019-08-04] MEDS: SUCRALFATE 1 G TABLET GT SCH ×4 (08:05→21:15)
[2019-08-04] MEDS: PANTOPRAZOLE 40 MG TABLET.DR PO SCH ×2 (08:06→21:15)
[2019-08-04] MEDS: ASCORBIC ACID 500 MG TABLET PO SCH (08:07)
[2019-08-04] MEDS: CLOTRIMAZOLE 1% 15 GM TUBE TP SCH ×2 (08:07→16:26)
[2019-08-04] MEDS: NYSTATIN TOP POWDER 15 GM BOTTLE TP SCH ×3 (08:08→16:27)
[2019-08-04] MEDS: NEOMY SULF/BACITRAC ZN/POLY 15 GM TUBE TP SCH ×2 (08:11→16:27)
--- NOTE | 2019-08-04 09:00 | NUR ---
received pt from night shift manager, alert, follows commands, still weak, SR, on 2L 02 sat well, tolerates diet, f/c low output, HD pt , rectal tube diarrhea, v/s stable, no pain, pt turned and repositioned.
--- NOTE | 2019-08-04 16:24 | NUR ---
pt is resting in the bed, a/o x4, SR, on 2L 02 sat well, tolerates diet, HD today, rectal tube diarrhea, v/s stable, no pain, pt cleaned, changed and repositioned.
[2019-08-04] MEDS ORDERED: ALBUMIN 25% 25 GM in PREMIX 1 EA IV ONE (18:30)
--- NOTE | 2019-08-04 19:21 | NUR ---
PROVIDER RELATIONS REP NOTES RECEIVED PT FROM BED. A/O X 4. ON TELE MONITOR SR 85. ON NASAL CANNULA 2LPM NO RESPIRATORY DISTRESS NOTED. ON KUO CATH DRAINING TEA COLORED URINE. ON GOING HD, HD NURSE AT BEDSIDE. IV ACCESS ON THOMAS PICC PATENT AND INTACT, HD CATH AT [facility] NO ACTIVE BLEEDING NOTED. HEAD OF BED ELEVATED. SIDE RAILS UP. CALL LIGHT WITHIN REACH. BED IN LOW AND LOCKED POSITION. WILL MONITOR PT CLOSELY
[2019-08-04] MEDS: MEROPENEM 500 MG in IV NS 0.9% 50 ML IV SCH (21:14)
[2019-08-04] MEDS: POLYETHYLENE GLYCOL 3350 17 GM POWD.PACK PO SCH ×2 (21:15→22:00)
[2019-08-04] MEDS ORDERED: CLOT15CR35 TP (23:31)
[2019-08-04] MEDS ORDERED: ALBUT2 NEB (23:31)
[2019-08-04] MEDS ORDERED: SUCR1TAB GT (23:31)
[2019-08-04] MEDS ORDERED: PRED20TA PO (23:31)
[2019-08-04] MEDS ORDERED: PANT40TA2 PO (23:31)
[2019-08-04] MEDS ORDERED: ONDA4VIA23 IVP (23:31)
[2019-08-04] MEDS ORDERED: METR500T PO (23:31)
[2019-08-04] MEDS ORDERED: LACT1CAP72 PO (23:31)
[2019-08-04] MEDS ORDERED: NYST15PO4 TP (23:31)
[2019-08-04] MEDS ORDERED: ASCO500T9 PO (23:31)
[2019-08-04] MEDS ORDERED: GABA-536 PO (23:31)
[2019-08-05] VITALS (34 sets, daily range): BP systolic 100–165; BP diastolic 38–80
--- NOTE | 2019-08-05 01:54 | NUR ---
GLUING CREW LEADER NOTES PT REFUSED BEDBATH AND WOUNDCARE. PER PT "I WANT TO REST, I AM VERY TIRED." EXPLAINED RISK AND BENEFITS WITH CHARGE NURSE. PT STILL REFUSED.
[2019-08-05] MEDS: METRONIDAZOLE 500 MG TABLET PO SCH ×3 (05:12→21:07)
[2019-08-05 05:17] LABS: BASOPHILS % (AUTO) 0.1 % (0.0-2.0); EOSINOPHILS % (AUTO) 0.1 % (0.0-6.0); LYMPHOCYTES # (AUTO) 3.2 /CMM (0.8-4.8); LYMPHOCYTES % (AUTO) 14.3 % (20.0-44.0); MEAN CORPUSCULAR HGB CONC 34 g/dl (31.0-36.0); MEAN CORPUSCULAR VOLUME 97 fL (82-100); MONOCYTES # (AUTO) 2.5 /CMM (0.1-1.30); MONOCYTES % (AUTO) 11.2 % (2.0-12.0); NEUTROPHILS # (AUTO) 16.6 /CMM (1.8-8.9); NEUTROPHILS % (AUTO) 74.3 % (43.0-81.0); PLATELET COUNT (AUTO) 54 /CMM (150-450); WHITE BLOOD COUNT (AUTO) 22.3 K/uL (4.3-11.0)
[2019-08-05 05:32] LABS: HEMATOCRIT 20 % (33-45); HEMOGLOBIN 6.8 g/dL (11.5-14.8)
[2019-08-05 05:55] LABS: CALCIUM, SERUM 9.3 mg/dL (8.5-10.1); CREATININE 2.2 mg/dL (0.6-1.3); MAGNESIUM 2.7 mg/dL (1.8-2.4); PHOSPHORUS 3.9 mg/dL (2.5-4.9); POTASSIUM 4.1 mmol/L (3.5-5.1)
--- NOTE | 2019-08-05 05:58 | NUR ---
ARCHITECTURE CONSULTANT NOTES CALLED DR DOOLEY REGARDING H/H OF 6.8/20 AND PLATELET OF 54. PER DR DOOLEY ORDER 1 UNIT PRBC.
--- NOTE | 2019-08-05 07:17 | NUR ---
GOVERNMENT RELATIONS MANAGER NOTES NO ACUTE CHANGES NOTED DURING THE SHIFT. NO ACTIVE BLEEDING NOTED. NO RESPIRATORY DISTRESS NOTED. WILL ENDORSE TO THE AM NURSE FOR CONTINUITY OF CARE.
[2019-08-05 07:25] LABS: LYMPHOCYTES % (MANUAL) 11 % (16-48); MONOCYTES % (MANUAL) 9 % (0-11.0); NEUTROPHILS % (MANUAL) 80 (42-76)
--- NOTE | 2019-08-05 07:30 | NUR ---
TOE FORMER STITCHDOWNS OPENING NOTES RECEIVED BEDSIDE REPORT FROM MEG MURPHY.PATIENT IN BED.SLEEPING.EASILY AROUSABLE. A/O X 4. ON TELE MONITOR SR HR 102. ON NASAL CANNULA 2LPM NO RESPIRATORY DISTRESS NOTED. ON KUO CATH DRAINING TEA COLORED URINE. IV ACCESS ON THOMAS PICC PATENT AND INTACT, HD CATH AT [facility] NO ACTIVE BLEEDING NOTED. HEAD OF BED ELEVATED. SIDE RAILS UP. CALL LIGHT WITHIN REACH. BED IN LOW AND LOCKED POSITION.ON CONTACT ISOLATION. WILL CONTINUE TO MONITOR.
[2019-08-05] MEDS: SUCRALFATE 1 G TABLET GT SCH ×4 (07:48→21:07)
[2019-08-05] MEDS: GABAPENTIN 400 MG CAPSULE PO SCH ×3 (08:15→17:10)
[2019-08-05] MEDS: ASCORBIC ACID 500 MG TABLET PO SCH (08:15)
[2019-08-05] MEDS: HYDROCORTISONE SOD SUCCINATE 100 MG/2 ML VIAL IV SCH ×2 (08:15→17:10)
[2019-08-05] MEDS: LACTOBACILLUS RHAMNOSUS GG 1 EACH CAP.SPRINK PO SCH ×2 (08:15→17:10)
[2019-08-05] MEDS: PANTOPRAZOLE 40 MG TABLET.DR PO SCH (08:15)
[2019-08-05] MEDS: predniSONE 20 MG TABLET PO SCH (08:16)
[2019-08-05] MEDS: MEROPENEM 500 MG in IV NS 0.9% 50 ML IV SCH ×2 (08:16→21:07)
[2019-08-05] MEDS: NEOMY SULF/BACITRAC ZN/POLY 15 GM TUBE TP SCH ×2 (08:39→17:11)
[2019-08-05] MEDS: NYSTATIN TOP POWDER 15 GM BOTTLE TP SCH ×3 (08:39→17:11)
[2019-08-05] MEDS: CLOTRIMAZOLE 1% 15 GM TUBE TP SCH ×2 (08:39→17:10)
[2019-08-05] MEDS: ALBUTEROL FS 2.5 MG/3 ML VIAL.NEB NEB PRN ×2 (08:50→21:40)
--- NOTE | 2019-08-05 12:00 | NUR ---
DIRECTOR AGENCY & STRATEGIC PARTNERSHIPS NOTE SEEN BY GOT NEW ORDER FOR DIALYSIS TOMORROW.
--- NOTE | 2019-08-05 13:47 | NUR ---
ROLL FORM OPERATOR NOTE SEEN BY ,UPDATED ABOUT PATIENT CONDITION WITH LABS.SPOKE TO PATIENT AND FAMILY AND ANSWERED ALL QUESTIONS.GOT NEW ORDER FOR NEXIUM IV .WILL CONTINUE TO MONITOR.
[2019-08-05] MEDS ORDERED: NEXIUM 40 MG VIAL IV SCH (14:00)
[2019-08-05] MEDS: PANTOPRAZOLE 40 MG VIAL IV SCH ×2 (16:00→21:07)
--- NOTE | 2019-08-05 17:32 | NUR ---
EXECUTIVE VICE PRESIDENT NOTE SEEN BY ,WILL CONTINUE TREATMENT . PER OVERHEAD CRANE TECHNICIAN STILL WAITING FOR BED AND TO BE ACCEPT IN ANOTHER HOSPITAL FOR TRANSFER.
--- NOTE | 2019-08-05 17:59 | NUR ---
FULLING MACHINE OPERATOR NOTE SEEN BY ,UPDATED ABOUT PATIENT CONDITION AND WAITING TRANSFER.GOT NEW ORDERS,CLARIFIED BLOOD TRANSFUSION ORDERS,MADE AWARE THAT 1 PRBC AND 1 CRYO TRANSFUSION DONE.GOT NEW ORDER TO CANCEL BLOOD TRANSFUSION ORDER.
[2019-08-05] MEDS ORDERED: ACETAMINOPHEN 325 MG TABLET PO ONE (18:00)
[2019-08-05] MEDS ORDERED: diphenhydrAMINE HCL 50 MG/ML VIAL IV ONE (18:00)
--- NOTE | 2019-08-05 19:08 | NUR ---
[employer]ODU[employer] DISTRICT SUPERVISOR CLOSING NOTES PATIENT IN BED.A/O X 4. ON TELE MONITOR SR HR 98. ON NASAL CANNULA 2LPM NO RESPIRATORY DISTRESS NOTED. ON KUO CATH DRAINING TEA COLORED URINE. IV ACCESS ON THOMAS PICC PATENT AND INTACT, HD CATH AT [facility] NO ACTIVE BLEEDING NOTED. HEAD OF BED ELEVATED. SIDE RAILS UP. CALL LIGHT WITHIN REACH. BED IN LOW AND LOCKED POSITION.ON CONTACT ISOLATION.PATIENT REFUSED TURN AND REPOSITION Q2H.EXPLAINED RISK AND BENEFIT.STILL REFUSING,WANT TO BE PULLED UP.COMFORTABLE POSITION GIVEN .IN SUPINE POSITION. ENDORSED TO PM NURSE FOR JOSE ROBERTO.
--- NOTE | 2019-08-05 19:20 | NUR ---
FEATHER SHAPER NOTE PATIENT REPORT GIVEN BEDSIDE PATIENT RECEIVED IN BED SEMI FOWLERS POSITION A/0 X 4. RN MADE AWARE PATIENT DOES NOT WANT TO BE TURNED Q 2 H DURING SHIFT. RN EXPLAINED RISKS AND BENEFITS OF TURNING Q2H. PATIENT STILL REFUSES. RN WILL TRY TO EDUCATE WHENEVER POSSIBLE. PATIENT DENIES SOB/ CHEST PAIN/ OF DISCOMFORT. RN WILL CONTINUE TO MONITOR. PATIENT TOLERATNG 2L NC WELL. PATIENT IV PATENT AND INTACT NO S/S OF INFILTRATION AND INFECTION. FECAL TUBE/KUO CATHETER DRAINING WELL TO GRAVITY. SAFETY PRECAUTIONS IN PLACE. CALL LIGHT WITHING REACH.
[2019-08-05 20:18] LABS: D-DIMER 1.52 mg/L(FEU (0.17-0.50)
--- NOTE | 2019-08-05 20:46 | NUR ---
FULL STACK PHP DEVELOPER NOTE FIBRINOGEN CAME PACK 119, PER RUFINO PANIAGUA ORDER GIVE 10 UNITS OF CRYO IF LESS THAN 150. ORDER PLACED INTO LAB
[2019-08-05] MEDS: POLYETHYLENE GLYCOL 3350 17 GM POWD.PACK PO SCH ×2 (21:07→21:38)
[2019-08-05] MEDS: HYDROCODONE/APAP 5/325MG 1 EACH TABLET PO PRN (21:08)
--- NOTE | 2019-08-05 21:39 | NUR ---
SAMPLE COORDINATOR NOTE PATIENT STATES SHE NEEDS A BREATHING TREATMENT, RT [id number] NOTIFIED. BREATHING TREATMENT GIVEN
[2019-08-06] VITALS (34 sets, daily range): BP systolic 83–114; BP diastolic 39–71
--- NOTE | 2019-08-06 00:10 | NUR ---
DOOR BUILDER NOTE FIRST 5 UNITS OF CRYO INFUSION STARTED.
--- NOTE | 2019-08-06 01:30 | NUR ---
PASTEURIZER NOTE FIRST 5UNITS OR CRYO GIVEN PER MD ORDER. LAB NOTIFIED FOR SECOND 5 UNITS
--- NOTE | 2019-08-06 01:36 | NUR ---
ARTIST MANAGER NOTE SECOND BAG OF CRYO INFUSION INITIATED NO REACTIONS NOTED
--- NOTE | 2019-08-06 02:00 | NUR ---
CHARGE HISTOTECHNOLOGIST NOTE ALL 10 UNITS OF CRYO INFUSED PER MD ORDER. NO NEW ORDERS GIVEN. NO REACTIONS NOTED AT THIS TIME. RN WILL CONTINUE TO MONITOR.
[2019-08-06] MEDS: METRONIDAZOLE 500 MG TABLET PO SCH ×3 (04:19→21:09)
[2019-08-06 05:21] LABS: BASOPHILS # (AUTO) 0.1 /CMM (0.0-0.2); BASOPHILS % (AUTO) 0.1 % (0.0-2.0); EOSINOPHILS % (AUTO) 0.2 % (0.0-6.0); HEMATOCRIT 23 % (33-45); HEMOGLOBIN 7.6 g/dL (11.5-14.8); LYMPHOCYTES # (AUTO) 6.3 /CMM (0.8-4.8); MEAN CORPUSCULAR HGB CONC 33 g/dl (31.0-36.0); MEAN CORPUSCULAR VOLUME 95 fL (82-100); MONOCYTES # (AUTO) 4.3 /CMM (0.1-1.30); NEUTROPHILS # (AUTO) 28.6 /CMM (1.8-8.9); NEUTROPHILS % (AUTO) 72.7 % (43.0-81.0); PLATELET COUNT (AUTO) 81 /CMM (150-450); RED BLOOD CELL COUNT(AUTO) 2.45 MIL/uL (4.0-5.2)
[2019-08-06 05:27] LABS: WHITE BLOOD COUNT (AUTO) 39.3 K/uL (4.3-11.0)
[2019-08-06 05:38] LABS: CALCIUM, SERUM 10.1 mg/dL (8.5-10.1); CREATININE 2.7 mg/dL (0.6-1.3); MAGNESIUM 2.8 mg/dL (1.8-2.4); PHOSPHORUS 3.6 mg/dL (2.5-4.9); POTASSIUM 3.8 mmol/L (3.5-5.1)
[2019-08-06 05:51] LABS: NEUTROPHILS % (MANUAL) 73 (42-76)
[2019-08-06 05:52] LABS: LYMPHOCYTES % (MANUAL) 15 % (16-48); MONOCYTES % (MANUAL) 12 % (0-11.0)
--- NOTE | 2019-08-06 07:55 | NUR ---
NURSING STAFFING COORDINATOR NOTES RECEIVED PT FROM BED. A/O X 4. ON TELE MONITOR St 101 ON NASAL CANNULA 2LPM NO RESPIRATORY DISTRESS NOTED. ON KUO CATH DRAINING TEA COLORED URINE. ON GOING HD, HD NURSE AT BEDSIDE. IV ACCESS ON THOMAS PICC PATENT AND INTACT, HD CATH AT [facility] NO ACTIVE BLEEDING NOTED. HEAD OF BED ELEVATED. SIDE RAILS UP. CALL LIGHT WITHIN REACH. BED IN LOW AND LOCKED POSITION. WILL MONITOR PT CLOSELY ,WITH FLEXI SEAL RECTAL TUBE WITH DARK BROWN LOOSE STOOL,NOTED BED IN LOWEST AND LOCKED POSITION CALL LIGHT WITHIN REACH
[2019-08-06] MEDS: SUCRALFATE 1 G TABLET GT SCH ×4 (08:26→21:34)
[2019-08-06] MEDS: HYDROCORTISONE SOD SUCCINATE 100 MG/2 ML VIAL IV SCH (08:26)
[2019-08-06] MEDS: ASCORBIC ACID 500 MG TABLET PO SCH (08:26)
[2019-08-06] MEDS: DOXYCYCLINE 200 MG in IV NS 0.9% 250 ML IV SCH ×2 (08:26→21:17)
[2019-08-06] MEDS: LACTOBACILLUS RHAMNOSUS GG 1 EACH CAP.SPRINK PO SCH ×2 (08:26→16:51)
[2019-08-06] MEDS: GABAPENTIN 400 MG CAPSULE PO SCH ×3 (08:26→16:51)
[2019-08-06] MEDS: NYSTATIN TOP POWDER 15 GM BOTTLE TP SCH ×3 (08:27→16:52)
[2019-08-06] MEDS: NEOMY SULF/BACITRAC ZN/POLY 15 GM TUBE TP SCH ×2 (08:27→16:52)
[2019-08-06] MEDS: CLOTRIMAZOLE 1% 15 GM TUBE TP SCH ×2 (08:27→16:52)
--- NOTE | 2019-08-06 08:56 | NUR ---
WEATHER ANCHOR NOTE ON BREATHING TX ORDERED ,WILL MONITOR
[2019-08-06] MEDS: PANTOPRAZOLE 40 MG VIAL IV SCH ×2 (09:22→21:09)
--- NOTE | 2019-08-06 09:43 | NUR ---
PROGRAMMING INTERNSHIP NOTE ON HD AT THIS TIME PER RT PLACED ON 4L NC OF O2 ,WILL MONITOR SAT NOW 97%
[2019-08-06] MEDS: ALBUMIN 25% 25 GM in PREMIX 1 EA IV PRN (10:28)
--- NOTE | 2019-08-06 10:30 | NUR ---
agricultural production engineer note spoke with dr scott independent consultant notified that patient on Cortef and was given 100 mg as ordered and prednisone held at this time, stated its oak. will d\c Cortef and prednisone 40 mg will start tomorrow , will f\u
--- NOTE | 2019-08-06 11:00 | NUR ---
horticultural specialty grower inside note dr scott dip lube operator at bedside ,notified that patient wbc 39.3 today also notifyed that patient steatoid prednisone and Cortef, stated that check it out
--- NOTE | 2019-08-06 11:37 | NUR ---
BUSINESS PROCESS CONSULTANT NOTE STILL ON HD AT THIS TIME , NOT IN DISTRESS
--- NOTE | 2019-08-06 12:18 | NUR ---
assistant superintendent for curriculum note unable to give Carafate, patient on hd at this time ,will give latter on Addendum: 08/06/19 at 1228 by GLORIA ARCE RN DR VERO ANAYA AT BEDSIDE , AWARE THAT STOOL COLOR STILL DARK BROWN LOOSE , HG TODAY 7.6 , NO NEW ORDER AT THIS TIME
--- NOTE | 2019-08-06 12:31 | NUR ---
ELECTRODE CLEANER NOTE HD COMPLETED , REMOVED 2L OF FLUIDS OUT, BP 111/56
--- NOTE | 2019-08-06 14:55 | NUR ---
HOME THERAPY TEACHER NOTE ROUND MADE ,RESTING COMFORTABLY, SAT 96% ON 0N 4L NC, NOT IN DISTRESS ,WILL CONT TO MONITOR CLOSELY Addendum: 08/06/19 at 1546 by GLORIA ARCE RN SPOKE WITH MANAGER VALIDATION SANTY ABOUT TRANSFER TO [facility], STATED THOST POSSIBLE [facility] OR [facility] ,STILL TRUING TO MANAGE TO TRANSFER YO HIGH LEVEL OF CARE , WILL F\U BUT NOT [facility] AT THIS TIME
[2019-08-06] MEDS: ACETAMINOPHEN 325 MG TABLET PO PRN (16:57)
--- NOTE | 2019-08-06 17:05 | NUR ---
GRINDER SET UP OPERATOR INTERNAL NOTE C\O SOB ,RT AT BEDSIDE ,ON BREATHING TX PRN ,WILL MONITOR CLOSELY. FLUSHED RECTAL TUBE, KEEP CLEAN DRY , CALL LIGHT WITHIN REACH
--- NOTE | 2019-08-06 18:31 | NUR ---
curriculum and instruction specialist note patient in bed ,alert , oriented ,no sob noted ,on 4l nc of o2 ,sat 95% ,on tele monitor st 108, with Flexi seal rectal tube in place with dark brown color loose stool , with Jacob cath to gravity with tea color urine , on starks max bed for skin management , turn reposition q2 hour , keep clean dry , bed in lowest and locked position , will cont to monitor closely ate dinner , fed by geotechnical intern
[2019-08-06] MEDS ORDERED: DOXYCYCLINE 100 MG VIAL ONE (21:09)
[2019-08-06] MEDS: POLYETHYLENE GLYCOL 3350 17 GM POWD.PACK PO SCH (21:34)
[2019-08-07] VITALS (28 sets, daily range): BP systolic 95–141; BP diastolic 48–76
[2019-08-07 04:20] LABS: BASOPHILS % (AUTO) 0.1 % (0.0-2.0); EOSINOPHILS % (AUTO) 0.3 % (0.0-6.0); HEMATOCRIT 23 % (33-45); HEMOGLOBIN 7.5 g/dL (11.5-14.8); LYMPHOCYTES % (AUTO) 12.4 % (20.0-44.0); MEAN CORPUSCULAR HGB CONC 33 g/dl (31.0-36.0); MEAN CORPUSCULAR VOLUME 96 fL (82-100); MONOCYTES # (AUTO) 4.2 /CMM (0.1-1.30); MONOCYTES % (AUTO) 10.6 % (2.0-12.0); NEUTROPHILS # (AUTO) 30.8 /CMM (1.8-8.9); NEUTROPHILS % (AUTO) 76.6 % (43.0-81.0); PLATELET COUNT (AUTO) 96 /CMM (150-450); RED BLOOD CELL COUNT(AUTO) 2.39 MIL/uL (4.0-5.2)
[2019-08-07 04:31] LABS: CALCIUM, SERUM 9.8 mg/dL (8.5-10.1); CREATININE 2.3 mg/dL (0.6-1.3); MAGNESIUM 2.4 mg/dL (1.8-2.4); PHOSPHORUS 3.2 mg/dL (2.5-4.9); POTASSIUM 3.5 mmol/L (3.5-5.1)
[2019-08-07 04:42] LABS: WHITE BLOOD COUNT (AUTO) 40.1 K/uL (4.3-11.0)
[2019-08-07 04:59] LABS: LYMPHOCYTES % (MANUAL) 8 % (16-48); MONOCYTES % (MANUAL) 9 % (0-11.0); NEUTROPHILS % (MANUAL) 83 (42-76)
[2019-08-07] MEDS: METRONIDAZOLE 500 MG TABLET PO SCH ×3 (05:14→21:56)
--- NOTE | 2019-08-07 07:29 | NUR ---
Critical WBC count today of 40.1 received via phone @ 1184, result endorsed to morning Nurse Dayanara to follow up with Physician this AM.
--- NOTE | 2019-08-07 07:50 | NUR ---
RN NOTE: RECEIVED PATIENT IN BED, AWAKE, ALERT AND VERBALLY RESPONSIVE. RESPIRATION EVEN AND UNLABORED SATURATING 98% WITH O2 2L/MIN VIA NC. NO RESPIRATORY DISTRESS NOTED. ON TRUER PINION AND WHEEL ST HR= 101. (R) UA PICC LINE WITH 2 PORTS NOTED PATENT AND INTACT WITH TRANSPARENT DRESSING CLEAN AND DRY. PATIENT ON BARIMAXX. AFEBRILE. SKIN WARM TO TOUCH. KUO CATHETER IN PLACED WITH VERY MINIMAL AMOUNT OF CLEAR HORTENSIA IN COLOR AND A FLEXISEAL WITH LIQUID BLACK STOOL. ENCOURAGED PATIENT TO BE TURNED AND REPOSITIONED Q2HR TOLERATED. PATIENT STATED "I WOULD WANT TO STAY ON MY BACK FOR NOW." PATIENT'S A FEEDER. ATE 100% OF HER BREAKFAST MEAL. BED LOCKED AND ON LOWEST POSITION AT ALL TIMES. CALL LIGHT WITHIN REACH. NEEDS ANTICIPATED. WILL INFORM THE ATTENDING HOSPITALIST TODAY REGARDING THE PATIENT'S WBC 40.1
--- NOTE | 2019-08-07 07:55 | NUR ---
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
[2019-08-07] MEDS: SUCRALFATE 1 G TABLET GT SCH ×4 (08:10→21:57)
[2019-08-07] MEDS: DOXYCYCLINE 200 MG in IV NS 0.9% 250 ML IV SCH ×2 (08:12→21:57)
[2019-08-07] MEDS: PANTOPRAZOLE 40 MG VIAL IV SCH ×2 (08:18→21:57)
[2019-08-07] MEDS: predniSONE 20 MG TABLET PO SCH (08:24)
[2019-08-07] MEDS: LACTOBACILLUS RHAMNOSUS GG 1 EACH CAP.SPRINK PO SCH (08:24)
[2019-08-07] MEDS: ASCORBIC ACID 500 MG TABLET PO SCH (08:24)
[2019-08-07] MEDS: GABAPENTIN 400 MG CAPSULE PO SCH ×3 (08:24→17:30)
[2019-08-07] MEDS: CLOTRIMAZOLE 1% 15 GM TUBE TP SCH ×2 (09:05→17:32)
[2019-08-07] MEDS: NYSTATIN TOP POWDER 15 GM BOTTLE TP SCH ×3 (09:05→17:32)
[2019-08-07] MEDS: Z GUARD REMEDY 2 OZ OINT TP PRN (09:05)
[2019-08-07] MEDS: NEOMY SULF/BACITRAC ZN/POLY 15 GM TUBE TP SCH ×2 (09:08→17:31)
--- NOTE | 2019-08-07 11:35 | NUR ---
RN NOTE: DR. GARZA WAS IN THE UNIT AND MADE HIM AWARE OF THE PATIENT'S WBC 40.[address] GARZA, COLLECT STOOL FOR C. DIFF.
--- NOTE | 2019-08-07 17:50 | NUR ---
RN NOTE: SENT TO LAB THE C. DIFF STOOL SPECIMEN WITH THE DOCUMENTATION FOR C. DIFF AFTER 3 DAYS. HANDED THE SPECIMEN TO MIKALA ASSEMBLER ENGINE. STOOL WAS LIQUID AND BLACK IN COLOR. COLLECTED FROM THE FLEXISEAL.
[2019-08-07 18:03] LABS: D-DIMER 1.46 mg/L(FEU (0.17-0.50)
--- NOTE | 2019-08-07 18:40 | NUR ---
RN NOTE: SENT THE URINE SAMPLE COLLECTED FROM THE KUO CATHETER PORT PER JEFFERY VILLATORO NP'S ORDER.
--- NOTE | 2019-08-07 19:15 | NUR ---
school curriculum developer. initial assessment. received the pt rest on the bed, awake, alert, follow commands. manager cardiac cath showings tach. ivrt upper arm picc line rt ij hd cath hob elevated. flexa seal intact. will continue to monitor vitals.
--- NOTE | 2019-08-07 19:16 | NUR ---
RN NOTE: BEDSIDE REPORT GIVEN TO PM SHIFT NURSE FOR CONTINUITY OF CARE. PATIENT'S URINE AND STOOL SAMPLES WERE SENT TO LAB. ENDORSED TO PM SHIFT NURSE TO FOLLOW-UP WITH BLOOD BANK REGARDING THE FIBRINOGEN RESULT OF 147. DR. LEONARD WROTE A STANDING ORDER FOR THE CRYOPRECIPITATE. CALLED LABORATORY AND THE BLOOD BANK STAFF VERIFIED THE ORDERS RECEIVED FOR THE CRYOPRECIPITATE.
[2019-08-07] MEDS: POLYETHYLENE GLYCOL 3350 17 GM POWD.PACK PO SCH (21:56)
--- NOTE | 2019-08-07 22:25 | NUR ---
RN OPEN NOTES RECEIVED PATIENT FROM ICU AWAKE IN BED. A/OX4. NO SIGNS OF DISTRESS OR DISCOMFORT. BREATHING EVEN AND UNLABORED. ON 2LPM O2 VIA NC. ATTACHED TO TELE MONITOR WITH SR 100 NOTED. HAS THOMAS PICC WITH VIBRAMYCIN INFUSING, PATENT AND INTACT, NO SIGNS OF REDNESS OR INFILTRATIONS. HAS RIJ HD CATH INTACT. HAS F/C INTACT, DRAINING CLEAR YELLOW FLUID. HAS RECTAL TUBE INPLACE, DRAINING BLACK LIQUIDY STOOL. ORIENTED PATIENT TO UNIT AND ROOM. BED IN LOW LOCKED POSITION WITH SIDE RAILS X3. HOB ELEVATED. CALL LIGHT WITHIN REACH. WILL CONTINUE TO MONITOR.
--- NOTE | 2019-08-07 22:41 | NUR ---
CONCRETE MIXING PLANT LABORER. TRANSFER THE PT TO ROOM 319. REPORT GIVEN TO ARSEN MURPHY. PT IS STABLE. CRYO ORDERED. PLEASE CALL LAB.
[2019-08-08] VITALS (11 sets, daily range): BP systolic 113–146; BP diastolic 60–84
[2019-08-08] MEDS: HYDROCODONE/APAP 5/325MG 1 EACH TABLET PO PRN (01:32)
--- NOTE | 2019-08-08 03:45 | NUR ---
RN NOTES ADMINISTERED 10U OF CRYOPRECIPITATE ORDERED. NO COMPLICATIONS NOTED. WILL CONTINUE TO MONITOR.
[2019-08-08] MEDS: METRONIDAZOLE 500 MG TABLET PO SCH ×3 (05:28→21:54)
[2019-08-08 06:45] LABS: BASOPHILS # (AUTO) 0.1 /CMM (0.0-0.2); BASOPHILS % (AUTO) 0.3 % (0.0-2.0); EOSINOPHILS % (AUTO) 0.1 % (0.0-6.0); HEMATOCRIT 23 % (33-45); HEMOGLOBIN 7.5 g/dL (11.5-14.8); LYMPHOCYTES # (AUTO) 2.1 /CMM (0.8-4.8); LYMPHOCYTES % (AUTO) 7.2 % (20.0-44.0); MEAN CORPUSCULAR HGB CONC 33 g/dl (31.0-36.0); MEAN CORPUSCULAR VOLUME 97 fL (82-100); MONOCYTES # (AUTO) 2.5 /CMM (0.1-1.30); MONOCYTES % (AUTO) 8.6 % (2.0-12.0); NEUTROPHILS % (AUTO) 83.8 % (43.0-81.0); PLATELET COUNT (AUTO) 103 /CMM (150-450); RED BLOOD CELL COUNT(AUTO) 2.36 MIL/uL (4.0-5.2); WHITE BLOOD COUNT (AUTO) 28.7 K/uL (4.3-11.0)
[2019-08-08 07:09] LABS: CREATININE 2.5 mg/dL (0.6-1.3); MAGNESIUM 2.4 mg/dL (1.8-2.4); PHOSPHORUS 3.6 mg/dL (2.5-4.9); POTASSIUM 3.7 mmol/L (3.5-5.1)
--- NOTE | 2019-08-08 07:41 | NUR ---
RN CLOSING NOTES PATIENT RESTING COMFORTABLY IN BED, EASILY AROUSABLE. A/OX4. NO SIGNS OF DISTRESS OR DISCOMFORT. BREATHING EVEN AND UNLABORED. ON 2LPM O2 VIA NC. ON TELE MONITOR WITH SR 96 NOTED. HAS THOMAS PICC, PATENT AND INTACT, NO SIGNS OF REDNESS OR INFILTRATIONS. HAS RIJ HD CATH INTACT. HAS F/C INTACT, DRAINING CLEAR HORTENSIA FLUID. HAS RECTAL TUBE INPLACE, DRAINING BLACK LIQUIDY STOOL. ALL NEEDS MET. NO SIGNIFICANT CHANGES THROUGH THE NIGHT. REPOSITIONED PATIENT Q2H AND PRN. BED IN LOW LOCKED POSITION WITH SIDE RAILS X3. HOB ELEVATED. CALL LIGHT WITHIN REACH. ENDORSED TO AM SHIFT FOR JOSE ROBERTO. .
[2019-08-08 07:56] LABS: BAND % (MANUAL) 5 % (0.0-5.0); LYMPHOCYTES % (MANUAL) 8 % (16-48); MONOCYTES % (MANUAL) 10 % (0-11.0); NEUTROPHILS % (MANUAL) 77 (42-76)
--- NOTE | 2019-08-08 08:00 | NUR ---
KNOCKDOWN WORKER AM NOTES RECEIVED PATIENT AWAKE IN BED. A/OX4. NO SIGNS OF DISTRESS OR DISCOMFORT. BREATHING EVEN AND UNLABORED. ON 2LPM O2 VIA NC. ATTACHED TO TELE MONITOR WITH SR WITH PVC'S NOTED. HAS THOMAS PICC PATENT AND INTACT, NO SIGNS OF REDNESS OR INFILTRATIONS. HAS RIJ HD CATH INTACT. HAS F/C INTACT, DRAINING CLEAR YELLOW FLUID. HAS FLEXISEAL RECTAL TUBE INPLACE, DRAINING BLACK LIQUIDY STOOL. ORIENTED PATIENT TO UNIT AND ROOM. BED IN LOW LOCKED POSITION WITH SIDE RAILS X3. HOB ELEVATED. CALL LIGHT WITHIN REACH. WILL CONTINUE TO MONITOR.
[2019-08-08] MEDS: PANTOPRAZOLE 40 MG VIAL IV SCH ×2 (08:43→21:54)
[2019-08-08] MEDS: predniSONE 20 MG TABLET PO SCH (08:44)
[2019-08-08] MEDS: GABAPENTIN 400 MG CAPSULE PO SCH ×3 (08:44→17:09)
[2019-08-08] MEDS: ASCORBIC ACID 500 MG TABLET PO SCH (08:44)
[2019-08-08] MEDS: SUCRALFATE 1 G TABLET GT SCH ×4 (08:46→21:54)
[2019-08-08] MEDS: Z GUARD REMEDY 2 OZ OINT TP PRN (09:18)
[2019-08-08] MEDS: NYSTATIN TOP POWDER 15 GM BOTTLE TP SCH ×3 (09:19→18:18)
[2019-08-08] MEDS: CLOTRIMAZOLE 1% 15 GM TUBE TP SCH ×2 (09:19→18:18)
[2019-08-08] MEDS: DOXYCYCLINE 200 MG in IV NS 0.9% 250 ML IV SCH ×2 (09:20→21:54)
[2019-08-08] MEDS: NEOMY SULF/BACITRAC ZN/POLY 15 GM TUBE TP SCH ×2 (09:20→18:18)
--- NOTE | 2019-08-08 17:12 | NUR ---
HEMODIALYSIS DONE TODAY WITH 2.1 LITERS OUTPUT.WITH STABLE V/S. BP 115/58 HR 107.
--- NOTE | 2019-08-08 19:30 | NUR ---
MS/RN OPENING NOTES PT RECEIVED AWAKE, HIGH FOWLERS IN BED WATCHING TV. PT IS A/OX3. ON 2LPM O2 VIA NC, BREATHING EVEN AND UNLABORED. DENIES SOB AND PAIN AT THIS TIME. THOMAS PICC LINE PATENT AND INTACT. KUO IN PLACE AND DRAINING TO GRAVITY. FLEXISEAL IN PLACE AND DRAINING TO GRAVITY. NO NEEDS EXPRESSED AT THIS TIME. BED IN LOW/LOCKED POSITION WITH CALL LIGHT IN REACH. SIDE RAILS UPX3 AND BED ALARM ON FOR SAFETY. WILL CONTINUE TO MONITOR
[2019-08-08 19:54] LABS: D-DIMER 1.9 mg/L(FEU (0.17-0.50)
[2019-08-08] MEDS: POLYETHYLENE GLYCOL 3350 17 GM POWD.PACK PO SCH ×2 (21:54→22:00)
[2019-08-09] MEDS: METRONIDAZOLE 500 MG TABLET PO SCH ×3 (06:00→21:12)
--- NOTE | 2019-08-09 06:37 | NUR ---
MS/RN CLOSING NOTES PT AWAKE, RESTING COMFORTABLY IN BED. HOB HIGH FOWLERS. ON 2LPM O2 VIA NC, BREATHING EVEN AND UNLABORED. DENIES SOB AND PAIN AT THIS TIME. THOMAS PICC LINE PATENT AND INTACT. HEELS OFFLOADED AND ALL TIMES. TURNED/REPOSITIONED Q2H. WOUND CARE RENDERED ORDERED. RIGHT IJ QUINTION CATH IN PLACE AND DRESSING C/D/I. NO NEEDS EXPRESSED AT THIS TIME. BED IN LOW/LOCKED POSITION WITH CALL LIGHT IN REACH. SIDE RAILS UPX3. WILL ENDORSE TO DAY SHIFT RN JOSE ROBERTO.
[2019-08-09 07:10] LABS: BASOPHILS % (AUTO) 0.1 % (0.0-2.0); EOSINOPHILS % (AUTO) 0.1 % (0.0-6.0); HEMATOCRIT 24 % (33-45); HEMOGLOBIN 7.6 g/dL (11.5-14.8); LYMPHOCYTES # (AUTO) 1.1 /CMM (0.8-4.8); LYMPHOCYTES % (AUTO) 5.3 % (20.0-44.0); MEAN CORPUSCULAR HGB CONC 32 g/dl (31.0-36.0); MEAN CORPUSCULAR VOLUME 99 fL (82-100); MONOCYTES # (AUTO) 1.8 /CMM (0.1-1.30); MONOCYTES % (AUTO) 8.7 % (2.0-12.0); NEUTROPHILS # (AUTO) 17.8 /CMM (1.8-8.9); NEUTROPHILS % (AUTO) 85.8 % (43.0-81.0); PLATELET COUNT (AUTO) 102 /CMM (150-450); WHITE BLOOD COUNT (AUTO) 20.7 K/uL (4.3-11.0)
[2019-08-09 07:52] LABS: CALCIUM, SERUM 9.7 mg/dL (8.5-10.1); CREATININE 2.5 mg/dL (0.6-1.3); MAGNESIUM 2.2 mg/dL (1.8-2.4); PHOSPHORUS 3.8 mg/dL (2.5-4.9); POTASSIUM 4.2 mmol/L (3.5-5.1)
[2019-08-09 07:54] LABS: D-DIMER 1.49 mg/L(FEU (0.17-0.50)
[2019-08-09 08:00] VITALS: BP 118/62
--- NOTE | 2019-08-09 08:00 | NUR ---
MS MURPHY AM NOTES RECEIVED PATIENT AWAKE IN BED. A/OX4. NO SIGNS OF DISTRESS OR DISCOMFORT. BREATHING EVEN AND UNLABORED. ON 2LPM O2 VIA NC.HAS THOMAS PICC PATENT AND INTACT, NO SIGNS OF REDNESS OR INFILTRATIONS. HAS RIJ HD CATH INTACT. HAS F/C INTACT, DRAINING CLEAR YELLOW URINE. HAS FLEXISEAL RECTAL TUBE INPLACE, DRAINING BLACK LIQUIDY STOOL. TURNED EVERY TWO HRS WITH 2 PERSON ASSIST.BED IN LOW LOCKED POSITION WITH SIDE RAILS X3. HOB ELEVATED. CALL LIGHT WITHIN REACH. WILL CONTINUE TO MONITOR.
[2019-08-09 08:13] LABS: BAND % (MANUAL) 6 % (0.0-5.0); LYMPHOCYTES % (MANUAL) 7 % (16-48); MONOCYTES % (MANUAL) 6 % (0-11.0); NEUTROPHILS % (MANUAL) 81 (42-76)
[2019-08-09] MEDS: ALBUTEROL FS 2.5 MG/3 ML VIAL.NEB NEB PRN ×2 (08:17→21:51)
[2019-08-09] MEDS: predniSONE 20 MG TABLET PO SCH (08:53)
[2019-08-09] MEDS: SUCRALFATE 1 G TABLET GT SCH ×4 (08:54→21:12)
[2019-08-09] MEDS: ASCORBIC ACID 500 MG TABLET PO SCH (08:54)
[2019-08-09] MEDS: GABAPENTIN 400 MG CAPSULE PO SCH ×3 (08:54→17:25)
[2019-08-09] MEDS: PANTOPRAZOLE 40 MG VIAL IV SCH ×2 (08:55→21:11)
[2019-08-09] MEDS: CLOTRIMAZOLE 1% 15 GM TUBE TP SCH ×2 (08:55→17:28)
[2019-08-09] MEDS: NYSTATIN TOP POWDER 15 GM BOTTLE TP SCH ×3 (09:14→17:29)
[2019-08-09] MEDS: NEOMY SULF/BACITRAC ZN/POLY 15 GM TUBE TP SCH ×2 (09:15→17:29)
[2019-08-09] MEDS: DOXYCYCLINE 200 MG in IV NS 0.9% 250 ML IV SCH ×2 (09:53→21:13)
[2019-08-09] MEDS: ONDANSETRON HCL/PF 4 MG/2 ML VIAL IVP PRN (10:05)
[2019-08-09 16:00] VITALS: BP 120/71
--- NOTE | 2019-08-09 18:47 | NUR ---
PT RESTING IN BED WATCHING TV [employer].COMFORTABLY RESTING DENYING ANY PAIN OR DISTRESS.WILL MONITOR.
--- NOTE | 2019-08-09 19:30 | NUR ---
RECEIVED PATIENT IN BED AWAKE. AO X 3, ABLE TO MAKE NEEDS KNOWN. NO ACUTE DISTRESS NOTED. DENIES ANY PAIN AT THIS TIME. IV LINE PATENT, INTACT; FLUSHED. SAFETY REMINDERS GIVEN. ON LOW BED WITH BILATERAL UPPER SIDE RAILS UP. CALL MAC WITHIN EASY REACH. WILL CONTINUE TO MONITOR.
[2019-08-09 20:00] VITALS: BP 101/54
--- NOTE | 2019-08-09 20:00 | NUR ---
KUO CATH PATENT, INTACT; DRAINING CLEAR HORTENSIA URINE. FLEXISEAL IN PLACE; DRAINING DARK BROWN LIQUID STOOL.
[2019-08-09] MEDS: POLYETHYLENE GLYCOL 3350 17 GM POWD.PACK PO SCH (21:12)
[2019-08-10] MEDS: METRONIDAZOLE 500 MG TABLET PO SCH ×3 (05:45→21:06)
--- NOTE | 2019-08-10 06:00 | NUR ---
PATIENT ASLEEP, EASILY AROUSABLE. RESPIRATIONS EVEN. NO SIGNS OF PAIN NOTED. DUE MEDS GIVEN WITH NO ASE NOTED. NEEDS ATTENDED. TURNED AND REPOSITIONED Q 2 HOURS WITH PATIENT'S PERMISSION. KEPT CLEAN, DRY, AND COMFORTABLE. SAFETY PRECAUTIONS AND COMFORT MEASURES IN PLACE. CONTACT ISOLATION FOR MRSA, VRE, AND KPNE ESBLE POS MAINTAINED. WILL GIVE REPORT TO DAY SHIFT FOR CONTINUITY OF CARE.
[2019-08-10 06:26] LABS: CALCIUM, SERUM 9.5 mg/dL (8.5-10.1); CREATININE 2.8 mg/dL (0.6-1.3); MAGNESIUM 2.1 mg/dL (1.8-2.4); PHOSPHORUS 3.9 mg/dL (2.5-4.9); POTASSIUM 4.4 mmol/L (3.5-5.1)
[2019-08-10 06:29] LABS: BASOPHILS % (AUTO) 0.2 % (0.0-2.0); EOSINOPHILS % (AUTO) 0.1 % (0.0-6.0); HEMATOCRIT 22 % (33-45); HEMOGLOBIN 7.2 g/dL (11.5-14.8); LYMPHOCYTES # (AUTO) 0.9 /CMM (0.8-4.8); LYMPHOCYTES % (AUTO) 5.3 % (20.0-44.0); MEAN CORPUSCULAR HGB CONC 32 g/dl (31.0-36.0); MEAN CORPUSCULAR VOLUME 99 fL (82-100); MONOCYTES # (AUTO) 1.4 /CMM (0.1-1.30); MONOCYTES % (AUTO) 8.5 % (2.0-12.0); NEUTROPHILS # (AUTO) 14.5 /CMM (1.8-8.9); NEUTROPHILS % (AUTO) 85.9 % (43.0-81.0); PLATELET COUNT (AUTO) 114 /CMM (150-450); RED BLOOD CELL COUNT(AUTO) 2.25 MIL/uL (4.0-5.2); WHITE BLOOD COUNT (AUTO) 16.9 K/uL (4.3-11.0)
[2019-08-10 08:00] VITALS: BP 114/59
[2019-08-10] MEDS: ASCORBIC ACID 500 MG TABLET PO SCH (08:24)
[2019-08-10] MEDS: SUCRALFATE 1 G TABLET GT SCH ×4 (08:24→21:06)
[2019-08-10] MEDS: GABAPENTIN 400 MG CAPSULE PO SCH ×3 (08:24→16:31)
[2019-08-10] MEDS: predniSONE 20 MG TABLET PO SCH (08:24)
[2019-08-10] MEDS: PANTOPRAZOLE 40 MG VIAL IV SCH ×2 (08:33→21:01)
--- NOTE | 2019-08-10 09:48 | NUR ---
PT IS ABOUT TO HAVE HEMODIALYSIS PROCEDURE-HELD VIBRAMYCIN FOR NOW AND WILL ADMINISTER AFTER HEMODIALYSIS PROCEDURE.
[2019-08-10] MEDS: NEOMY SULF/BACITRAC ZN/POLY 15 GM TUBE TP SCH ×2 (09:52→16:32)
[2019-08-10] MEDS: CLOTRIMAZOLE 1% 15 GM TUBE TP SCH ×2 (09:52→16:32)
[2019-08-10] MEDS: NYSTATIN TOP POWDER 15 GM BOTTLE TP SCH ×3 (09:52→16:32)
--- NOTE | 2019-08-10 12:30 | NUR ---
HEMODIALYSIS DONE WITH 2 LITERS OUTPUT.WITH STABLE V/S.
[2019-08-10] MEDS: DOXYCYCLINE 200 MG in IV NS 0.9% 250 ML IV SCH ×2 (12:46→21:03)
[2019-08-10 16:00] VITALS: BP 123/68
--- NOTE | 2019-08-10 19:30 | NUR ---
RN NOTES Received pt. awake on bed, a/ox4, on barimaxx bed, flexiseal in place, f/c draining clear yellow urine, PICC line 1 port is not is not working, denies pain, no SOB, call light within reach, siderailsupx2, pt. needs attended
[2019-08-10 20:00] VITALS: BP 113/58
[2019-08-10] MEDS: POLYETHYLENE GLYCOL 3350 17 GM POWD.PACK PO SCH (21:06)
[2019-08-11] MEDS: METRONIDAZOLE 500 MG TABLET PO SCH ×3 (05:10→20:59)
--- NOTE | 2019-08-11 06:22 | NUR ---
rn notes awake, morning care rendered, denies pain, no SOB, call light within reach, siderailsupx2, pt. needs attended
--- NOTE | 2019-08-11 07:25 | NUR ---
RN OPENING NOTES RECEIVED PATIENT AWAKE IN BED. A/OX4. NO SIGNS OF DISTRESS OR DISCOMFORT. BREATHING EVEN AND UNLABORED. ON 2LPM O2 VIA NC.HAS THOMAS PICC PATENT AND INTACT, NO SIGNS OF REDNESS OR INFILTRATIONS. HAS RIJ HD CATH INTACT. HAS F/C INTACT, DRAINING CLEAR YELLOW URINE. HAS FLEXISEAL RECTAL TUBE IN PLACE. WILL TURN EVERY TWO HRS NEEDED. BED IN LOW/LOCKED POSITION WITH SIDE RAILS X3. HOB ELEVATED. CALL LIGHT WITHIN REACH. WILL CONTINUE TO MONITOR.
[2019-08-11] MEDS: PANTOPRAZOLE 40 MG VIAL IV SCH ×2 (09:22→20:59)
[2019-08-11] MEDS: ASCORBIC ACID 500 MG TABLET PO SCH (09:27)
[2019-08-11] MEDS: SUCRALFATE 1 G TABLET GT SCH ×4 (09:27→21:26)
[2019-08-11] MEDS: GABAPENTIN 400 MG CAPSULE PO SCH ×3 (09:27→16:50)
[2019-08-11] MEDS: predniSONE 20 MG TABLET PO SCH (09:28)
[2019-08-11] MEDS: NYSTATIN TOP POWDER 15 GM BOTTLE TP SCH ×3 (09:32→16:52)
[2019-08-11] MEDS: CLOTRIMAZOLE 1% 15 GM TUBE TP SCH ×2 (09:32→16:52)
[2019-08-11] MEDS: NEOMY SULF/BACITRAC ZN/POLY 15 GM TUBE TP SCH ×2 (09:33→16:52)
[2019-08-11 09:50] VITALS: BP 102/52
[2019-08-11] MEDS: DOXYCYCLINE 200 MG in IV NS 0.9% 250 ML IV SCH ×2 (10:50→20:59)
[2019-08-11 12:24] LABS: BASOPHILS % (AUTO) 0.2 % (0.0-2.0); EOSINOPHILS % (AUTO) 0.1 % (0.0-6.0); HEMATOCRIT 23 % (33-45); HEMOGLOBIN 7.4 g/dL (11.5-14.8); LYMPHOCYTES # (AUTO) 2.4 /CMM (0.8-4.8); LYMPHOCYTES % (AUTO) 12.4 % (20.0-44.0); MEAN CORPUSCULAR HGB CONC 32 g/dl (31.0-36.0); MEAN CORPUSCULAR VOLUME 100 fL (82-100); MONOCYTES # (AUTO) 2.1 /CMM (0.1-1.30); NEUTROPHILS # (AUTO) 14.8 /CMM (1.8-8.9); NEUTROPHILS % (AUTO) 76.3 % (43.0-81.0); PLATELET COUNT (AUTO) 130 /CMM (150-450); RED BLOOD CELL COUNT(AUTO) 2.31 MIL/uL (4.0-5.2); WHITE BLOOD COUNT (AUTO) 19.4 K/uL (4.3-11.0)
[2019-08-11 12:43] LABS: CALCIUM, SERUM 9.8 mg/dL (8.5-10.1); CREATININE 2.9 mg/dL (0.6-1.3); PHOSPHORUS 3.8 mg/dL (2.5-4.9); POTASSIUM 4.5 mmol/L (3.5-5.1)
[2019-08-11] MEDS: HYDROCODONE/APAP 5/325MG 1 EACH TABLET PO PRN (12:43)
[2019-08-11 12:47] LABS: ALBUMIN 3.8 g/dL (3.4-5.0); BILIRUBIN,DIRECT 1.1 mg/dL (0.0-0.2); BILIRUBIN,TOTAL 1.8 mg/dL (0.2-1.0); TOTAL PROTEIN, SERUM 5.7 g/dL (6.4-8.2)
[2019-08-11 13:09] LABS: LYMPHOCYTES % (MANUAL) 18 % (16-48); MONOCYTES % (MANUAL) 10 % (0-11.0); NEUTROPHILS % (MANUAL) 72 (42-76)
[2019-08-11] MEDS ORDERED: NEPRO VAN 237 ML CAN PO PRN (14:00)
--- NOTE | 2019-08-11 16:00 | NUR ---
PATIENT REFUSED WOUND CARE. PER PATIENT, SHE WANTS TO SPEND TIME WITH AT THE MOMENT AND IS TOO TIRED. PER PATIENT, " MAYBE ILL LET THEM DO IT TONIGHT"
[2019-08-11 16:10] VITALS: BP 112/66
--- NOTE | 2019-08-11 18:00 | NUR ---
RN NOTES TURNED AND REPOSITION EVERY 2HRS NEEDED
--- NOTE | 2019-08-11 19:26 | NUR ---
RN CLOSING NOTES PATIENT IN STABLE CONDITION. ALL NEEDS ATTENDED AND PROVIDED. ALL DUE MEDS GIVEN ORDERED. AT BEDSIDE. KEPT PATIENT SAFE AND COMFORTABLE. BED IN LOW/LOCKED POSITION, SIDERAILS UPX2, CALL LIGHT IN REACH. ENDORSED TO NIGHT RN FOR JOSE ROBERTO.
[2019-08-11 20:00] VITALS: BP 122/57
--- NOTE | 2019-08-11 20:00 | NUR ---
RECIEVED PT ALERT AND ORIENTATED AT THE BEDSIDE. PT SMILING AND FRIENDLY. PATIENT DOESN'T WANT TO BE BOTHERED TONIGHT STATING I B\WANT TO SLEEP
[2019-08-11 20:07] VITALS: BP 122/57
[2019-08-11] MEDS: POLYETHYLENE GLYCOL 3350 17 GM POWD.PACK PO SCH (21:01)
[2019-08-12] MEDS: METRONIDAZOLE 500 MG TABLET PO SCH ×3 (05:28→20:36)
--- NOTE | 2019-08-12 06:20 | NUR ---
ENDING NOTES: AWAKE AND ALERT X3, SMILING AND COOPERATIVE. REFUSED WOUND CARE LAST NIGHT, STATED SHE WANTED TO SLEEP. EXPLAINED TO HER IMPORTANCE ABOUT WOULD CARW, SHE IS AWARE. AN A BARIATRIC BED. NOTED URINE IS BLOOD ONLY 50 ML OUT PUT. SLEPT THRU THE NIGHT
--- NOTE | 2019-08-12 07:20 | NUR ---
RN OPENING NOTES RECEIVED PATIENT AWAKE IN BED. A/OX4. NO SIGNS OF DISTRESS OR DISCOMFORT. BREATHING EVEN AND UNLABORED. ON 2LPM O2 VIA NC.HAS THOMAS PICC with 2 PORTS, ONLY ONE PORT IS PATENT AND INTACT, NO SIGNS OF REDNESS OR INFILTRATIONS. HAS RIJ HD CATH INTACT. HAS F/C INTACT, DRAINING URINE WELL. HAS FLEXISEAL RECTAL TUBE IN PLACE. WILL TURN EVERY TWO HRS NEEDED. BED IN LOW/LOCKED POSITION WITH SIDE RAILS X3. HOB ELEVATED. CALL LIGHT WITHIN REACH. WILL CONTINUE TO MONITOR.
[2019-08-12 08:00] VITALS: BP 115/49
[2019-08-12] MEDS ORDERED: ALTEPLASE CATHFLO 2 MG/VIAL XX ONE (08:00)
[2019-08-12] MEDS: ASCORBIC ACID 500 MG TABLET PO SCH (08:36)
[2019-08-12] MEDS: predniSONE 20 MG TABLET PO SCH (08:36)
[2019-08-12] MEDS: GABAPENTIN 400 MG CAPSULE PO SCH ×3 (08:36→17:54)
[2019-08-12] MEDS: SUCRALFATE 1 G TABLET GT SCH ×4 (08:36→21:06)
[2019-08-12] MEDS: DOXYCYCLINE 200 MG in IV NS 0.9% 250 ML IV SCH ×2 (08:44→20:37)
[2019-08-12] MEDS: NYSTATIN TOP POWDER 15 GM BOTTLE TP SCH ×3 (08:58→18:16)
[2019-08-12] MEDS: NEOMY SULF/BACITRAC ZN/POLY 15 GM TUBE TP SCH ×2 (08:58→18:17)
[2019-08-12] MEDS: CLOTRIMAZOLE 1% 15 GM TUBE TP SCH ×2 (08:58→18:16)
[2019-08-12] MEDS: PANTOPRAZOLE 40 MG VIAL IV SCH ×2 (09:00→20:36)
[2019-08-12 09:16] LABS: BASOPHILS % (AUTO) 0.1 % (0.0-2.0); HEMATOCRIT 24 % (33-45); HEMOGLOBIN 7.7 g/dL (11.5-14.8); LYMPHOCYTES # (AUTO) 1.8 /CMM (0.8-4.8); LYMPHOCYTES % (AUTO) 8.4 % (20.0-44.0); MEAN CORPUSCULAR HGB CONC 32 g/dl (31.0-36.0); MEAN CORPUSCULAR VOLUME 100 fL (82-100); MONOCYTES % (AUTO) 9.7 % (2.0-12.0); NEUTROPHILS # (AUTO) 17.3 /CMM (1.8-8.9); NEUTROPHILS % (AUTO) 81.8 % (43.0-81.0); PLATELET COUNT (AUTO) 146 /CMM (150-450); WHITE BLOOD COUNT (AUTO) 21.1 K/uL (4.3-11.0)
[2019-08-12 09:39] LABS: ALBUMIN 3.9 g/dL (3.4-5.0); CALCIUM, SERUM 10.4 mg/dL (8.5-10.1); CREATININE 3.4 mg/dL (0.6-1.3); MAGNESIUM 2.2 mg/dL (1.8-2.4); PHOSPHORUS 4.5 mg/dL (2.5-4.9); TOTAL PROTEIN, SERUM 6.1 g/dL (6.4-8.2)
--- NOTE | 2019-08-12 10:05 | NUR ---
RN NOTES MICHELLE AT BEDSIDE DOING HEMODIALYSIS
--- NOTE | 2019-08-12 10:20 | NUR ---
RN NOTES RADHA,SPARE FIXER AT BEDSIDE FIXING THE CLOG PORT ON PATIENT'S PICC LINE.
--- NOTE | 2019-08-12 14:43 | NUR ---
REFUSED WOUND CARE, EXPLAINED TO PATIENT RISK AND BENEFIT BUT STILL REFUSED. PER PATIENT, SHE WANTS TO SPEND TIME WITH AT THE MOMENT AND IS TOO TIRED. BUT SHE PROMISE THAT SHE WILL AGREE TONIGHT
[2019-08-12] MEDS: HYDROCODONE/APAP 5/325MG 1 EACH TABLET PO PRN ×2 (15:28→22:27)
[2019-08-12 16:00] VITALS: BP 102/52
--- NOTE | 2019-08-12 18:00 | NUR ---
RN NOTES TURNED AND REPOSITIONED PATIENT EVERY 2HRS NEEDED.
--- NOTE | 2019-08-12 19:15 | NUR ---
RN gerrisuyesy notes Received Pt from morning nurse. Pt is alert and orientedX3. Pt is resting in bed comfortably. Pt's at the bedside. Respiration is normal in 2 L NC. No SOB. No nausea or vomiting. Pt denies any pain or discomfort at this time. IV sites at PICC THOMAS is clean, intact, and patent. RIJ HD cath is clean, intact, and patent. F/C is patent and intact and draining bloody urine. MD is aware per morning nurse. Flexaseal rectal tube is intact and patent. Safety precautions is maintained. Bed at low position, brakes locked, side rails upX3 and call light is within reach. Will continue to monitor.
--- NOTE | 2019-08-12 19:16 | NUR ---
RN CLOSING NOTES PATIENT IN STABLE CONDITION. ALL NEEDS ATTENDED AND PROVIDED. ALL DUE MEDS GIVEN ORDERED. AT BEDSIDE. KEPT PATIENT SAFE AND COMFORTABLE. BED IN LOW/LOCKED POSITION, SIDERAILS UP, CALL LIGHT IN REACH. ENDORSED TO NIGHT RN FOR JOSE ROBERTO. HD DONE TODAY, OUTPUT 2L
[2019-08-12] MEDS: ALBUTEROL FS 2.5 MG/3 ML VIAL.NEB NEB PRN (19:49)
[2019-08-12 20:00] VITALS: BP 101/44
[2019-08-12] MEDS: POLYETHYLENE GLYCOL 3350 17 GM POWD.PACK PO SCH ×2 (21:06→21:09)
--- NOTE | 2019-08-12 22:30 | NUR ---
RNmedsurg notes Pt is complaining of pain on left lower and upper leg. Administered [place] 5-325 mg/1 tab/PO as ordered for pain on left leg 7/10 on pain scale per Pt request. Instructed to call. VS is stable. Will continue to monitor.
--- NOTE | 2019-08-13 04:10 | NUR ---
JEFFREY medr notes Wound care is provided as ordered. Pt tolerated activity well.
[2019-08-13] MEDS: METRONIDAZOLE 500 MG TABLET PO SCH ×3 (05:03→20:48)
--- NOTE | 2019-08-13 06:45 | NUR ---
RN medsurg closing notes Pt is alert and oriented X3. Pt is resting in bed comfortably. Respiration is normal in 2 L NC. No SOB. No S/S of distress noted. PICC line at THOMAS is clean, intact and patent. RIJ HD is clean and intact. Flexiseal rectal tube is in placed. Jacob cath is intact, patent and draining bloody urine 50 ml. Wound care is provided as ordered. Routine meds were given as ordered. Kept Pt clean, dry and comfortable. Turned and repositioned Q 2hr. Contact precautions is maintained. All needs met and attended. Bed at low position, HOB elevated, brakes locked, side rails ups X3 and call light is within reach. Will endorse to morning nurse for JOSE ROBERTO.
[2019-08-13] MEDS: SUCRALFATE 1 G TABLET GT SCH ×4 (07:37→22:42)
--- NOTE | 2019-08-13 07:49 | NUR ---
M/S RN OPENING NOTES RECEIVED PATIENT ON BED ASLEEP BUT EASILY AROUSABLE, A/O X4 AND ABLE TO MAKE NEEDS KNOWN. RESPIRATION EVEN AND NON LABORED, ON O2 AT 2LPM VIA NASAL CANNULA. WITH FC PRESENCE OF BLOODY URINE, REPORTED RIGHT UPPER ARM PICC LINE, RIGHT CHEST HD SITE - PATENT AND INTACT. SKIN WARM TO TOUCH AND DRY. ON ISOLATION OF MRSA ESBL URINE AND WOUND. CALL LIGHT PLACE WITHIN REACH. WILL CONTINUE TO EVALUATE CARE.
[2019-08-13 08:00] VITALS: BP 104/49
[2019-08-13] MEDS: PANTOPRAZOLE 40 MG VIAL IV SCH ×2 (08:20→20:47)
[2019-08-13] MEDS: GABAPENTIN 400 MG CAPSULE PO SCH ×3 (08:21→17:01)
[2019-08-13] MEDS: ASCORBIC ACID 500 MG TABLET PO SCH (08:21)
[2019-08-13] MEDS: DOXYCYCLINE 200 MG in IV NS 0.9% 250 ML IV SCH ×2 (08:21→20:48)
[2019-08-13] MEDS: predniSONE 20 MG TABLET PO SCH (08:21)
[2019-08-13] MEDS: CLOTRIMAZOLE 1% 15 GM TUBE TP SCH ×2 (08:42→17:02)
[2019-08-13] MEDS: NEOMY SULF/BACITRAC ZN/POLY 15 GM TUBE TP SCH ×2 (08:43→17:02)
[2019-08-13] MEDS: NYSTATIN TOP POWDER 15 GM BOTTLE TP SCH ×3 (08:43→17:01)
--- NOTE | 2019-08-13 10:00 | NUR ---
M/S RN NOTES PT REPOSITIONED TO RIGHT SIDE LYING POSITION, BOTH HEELS REMAINED OFF LOAD.
--- NOTE | 2019-08-13 13:01 | NUR ---
M/S RN NOTES PT REPOSITIONED SUPINE.
[2019-08-13 16:13] VITALS: BP 101/48
--- NOTE | 2019-08-13 16:20 | NUR ---
M/S RN NOTES SPONGE BATH GIVEN, TOLERATED WELL. TREATMENT GIVEN ORDERED. PT PREFERRED SUPINE POSITION WITH HOB ELEVATED. CONTINUE WITH O2
--- NOTE | 2019-08-13 18:44 | NUR ---
M/S RN CLOSING NOTES PT A/O X 4 AND ABLE TO MAKE NEEDS KNOWN. RESPIRATION WITH NO SOB NOTED WHEN HOB ELEVATED, PRESENCE OF SOB WHEN REPOSITIONING AND LYING HEAD OF BED DOWN. ON O2 AT 2LPM AND TOLERATED WELL. SKIN WARM TO TOUCH AND DRY. BOTH HEELS OFF LOAD. ABD SOFT WITH FC 10 ML BLOOD IN URINE, IN PLACE. FLEXASEAL INTACT, 5 ML OUTPUT. RIGHT UPPER ARM PICC LINE PATENT IN FLUSHING. RIGHT IJ HD SITE, INTACT WITH NO PRESENCE OF BLEEDING. NO HD DONE TODAY. ALL CARE ATTENDED. CALL LIGHT WITHIN REACH. ON ISOLATION MRSA FOR URINE AND WOUND. ENDORSED PT CARE TO NEXT SHIFT.
--- NOTE | 2019-08-13 19:30 | NUR ---
MS RN OPENING NOTE RECEIVED PATIENT IN BED. A/O X4. ON OXYGEN 2L/MIN VIA NASAL CANNULA. RESPIRATIONS ARE EVEN AND UNLABORED. NO S/S SOB. DENIES PAIN AT THIS TIME. NO APPARENT DISTRESS. IV ACCESS IN THOMAS PICC PATENT ANS SONU LOCKED. HD PORT PRESENT, PERMA CATH ON RIGHT CHEST. KUO CATHETER IS PRESENT, DRAINING TO GRAVITY, URINE IS DARK READ, BLOODY. BED IS LOW AND LOCKED, ON [facility], SIDE RAILS UP X2, HOB ELEVATED 80 DEGREES. CALL LIGHT WITHIN REACH. WILL CONTINUE TO MONITOR
[2019-08-13 20:00] VITALS: BP 98/56
[2019-08-13 20:59] VITALS: BP 98/56
[2019-08-13] MEDS: POLYETHYLENE GLYCOL 3350 17 GM POWD.PACK PO SCH (22:42)
[2019-08-14 06:18] LABS: BASOPHILS % (AUTO) 0.1 % (0.0-2.0); EOSINOPHILS % (AUTO) 0.3 % (0.0-6.0); HEMATOCRIT 23 % (33-45); HEMOGLOBIN 7.3 g/dL (11.5-14.8); MEAN CORPUSCULAR HGB CONC 32 g/dl (31.0-36.0); MEAN CORPUSCULAR VOLUME 101 fL (82-100); MONOCYTES # (AUTO) 1.9 /CMM (0.1-1.30); NEUTROPHILS # (AUTO) 17.5 /CMM (1.8-8.9); NEUTROPHILS % (AUTO) 74.6 % (43.0-81.0); PLATELET COUNT (AUTO) 151 /CMM (150-450); RED BLOOD CELL COUNT(AUTO) 2.29 MIL/uL (4.0-5.2); WHITE BLOOD COUNT (AUTO) 23.4 K/uL (4.3-11.0)
[2019-08-14] MEDS: HYDROCODONE/APAP 5/325MG 1 EACH TABLET PO PRN (06:19)
[2019-08-14 06:28] LABS: CALCIUM, SERUM 10.2 mg/dL (8.5-10.1); CREATININE 3.5 mg/dL (0.6-1.3); MAGNESIUM 2.3 mg/dL (1.8-2.4); PHOSPHORUS 4.6 mg/dL (2.5-4.9); POTASSIUM 4.9 mmol/L (3.5-5.1)
--- NOTE | 2019-08-14 06:55 | NUR ---
MS RN OPENING NOTE PATIENT IN BED. A/O X4. MAINTAINS MRSA AND WOUND ISOLATION. REMAINS ON OXYGEN 2L/MIN VIA NASAL CANNULA. RESPIRATIONS ARE EVEN AND UNLABORED. NO S/S SOB NOTED. NO C/O PAIN. NO APPARENT DISTRESS THROUGHOUT SHIFT. IV ACCESS MAINTAINED IN THOMAS PICC PATENT AND SALINE LOCKED. HD PORT PRESENT, PERMA CATH ON RIGHT CHEST. KUO CATHETER IS PRESENT, DRAINING TO GRAVITY, URINE IS DARK READ, BLOODY, OUTPUT 10ML. FLAXASEAL REMAINS PRESENT AND INTACT, OUTPUT 100ML.BED REMAINS LOW AND LOCKED, ON [facility] [facility], SIDE RAILS UP X2, HOB ELEVATED 80 DEGREES. CALL LIGHT WITHIN REACH. WILL ENDORSE TO NEXT SHIFT.
--- NOTE | 2019-08-14 06:55 | NUR ---
MS RN CLOSING NOTE PATIENT IN BED. A/O X 3. REMAINS TOLERATING ROOM AIR. RESPIRATIONS ARE EVEN AND UNLABORED. NO S/S SOB NOTED. NO C/O PAIN. NO DISTRESS NOTED. IV ACCESS MAINTAINED IN LFA #22 PATENT AND RUNNING NS@75ML/HR. BED IS LOW AND LOCKED, SIDE RAILS UP X2. CALL LIGHT WITHIN REACH. WILL ENDORSE TO NEXT SHIFT.
--- NOTE | 2019-08-14 07:57 | NUR ---
MS RN OPENING NOTES RECEIVED PATIENT IN BED ALERT AND AWAKE ORIENTED X4. HOB ELEVATED. RESTING COMFORTABLY IN BED, WATCHING TV. DENIES ANY C/O PAIN NOR DISCOMFORT. NO SOB. THOMAS PICC LINE INTACT DOUBLE LUMEN INTACT AND PATENT. HD CATHETER SITE INTACT. BED DUSTIN LOWEST POSITION. CALL LIGHT WITHIN REACH. ABLE TO VERBALIZE NEEDS.
[2019-08-14 08:00] VITALS: BP_SYST 112; BP_SYST 146; BP_DIAS 56; BP_DIAS 96
[2019-08-14] MEDS: SUCRALFATE 1 G TABLET GT SCH ×4 (08:19→21:13)
[2019-08-14 08:24] LABS: BAND % (MANUAL) 2 % (0.0-5.0); LYMPHOCYTES % (MANUAL) 19 % (16-48); MONOCYTES % (MANUAL) 8 % (0-11.0); NEUTROPHILS % (MANUAL) 71 (42-76)
[2019-08-14] MEDS: predniSONE 20 MG TABLET PO SCH (09:00)
[2019-08-14] MEDS: GABAPENTIN 400 MG CAPSULE PO SCH ×3 (09:00→17:00)
[2019-08-14] MEDS: ASCORBIC ACID 500 MG TABLET PO SCH (09:00)
[2019-08-14] MEDS: PANTOPRAZOLE 40 MG VIAL IV SCH ×2 (09:35→21:13)
[2019-08-14] MEDS: CLOTRIMAZOLE 1% 15 GM TUBE TP SCH ×2 (09:38→17:38)
[2019-08-14] MEDS: NYSTATIN TOP POWDER 15 GM BOTTLE TP SCH ×3 (09:39→17:37)
[2019-08-14] MEDS: NEOMY SULF/BACITRAC ZN/POLY 15 GM TUBE TP SCH ×2 (09:39→17:39)
--- NOTE | 2019-08-14 12:48 | NUR ---
MS RN NOTES HELD MED, ANTICIPATING HD
--- NOTE | 2019-08-14 13:57 | NUR ---
MS RN NOTES HELD PO MED ANTICIPATING HD
[2019-08-14 16:00] VITALS: BP 106/54
--- NOTE | 2019-08-14 17:40 | NUR ---
MS RN NOTES HELD PO MEDS, ANTICIPATING HD
--- NOTE | 2019-08-14 18:36 | NUR ---
MS RN CLOSING NOTES ALERT AND ORIENTED X4. NO SOB. ON O2 VIA NC @ 2L/MIN JOVI WELL. DENIES ANY C/O PAIN NOR DISCOMFORT AT THIS TIME. THOMAS PICC LINE DOUBLE LUMEN INTACT AND PATENT, DRESSING CHANGE JOVI WELL. RIGHT JUGULAR CATHETER SITE INTACT, DRESSING CHANGED BY DIALYSIS NURSE. PATIENT CURRENTLY RECEIVING DIALYSIS TREATMENT AT THIS TIME. ABLE TO VERBALIZE NEEDS. IN NO APPARENT DISTRESS. BED IN LOWEST POSITION. CALL LIGHT WITHIN REACH. PATIENT ABLE TO VERBALIZE NEEDS. IN NO APPARENT DISTRESS. ENDORSED TO ONCOMING NURSE FOR CONTINUITY OF CARE.
--- NOTE | 2019-08-14 19:30 | NUR ---
MS RN OPENING NOTE PATIENT IN BED. A/O X4. CURRENTLY ON MRSA AND ESBL URINE ISOLATION. REMAINS ON OXYGEN 2L/MIN VIA NASAL CANNULA. RESPIRATIONS ARE EVEN AND UNLABORED. NO S/S SOB NOTED AT THIS TIME. DENIES PAIN. NO APPARENT DISTRESS. IV ACCESS MAINTAINED IN THOMAS PICC PATENT AND SALINE LOCKED. HD PORT PRESENT, PERMA CATH ON RIGHT IJ, CURRENTLY RECEIVING HD. KUO CATHETER IS PRESENT, DRAINING TO GRAVITY, URINE . FLAXASEAL REMAINS PRESENT AND INTACT .BED REMAINS LOW AND LOCKED, ON [facility], SIDE RAILS UP X2, HOB ELEVATED 80 DEGREES. CALL LIGHT WITHIN REACH. WILL CONTINUE TO MONITOR.
[2019-08-14 20:00] VITALS: BP 94/40
[2019-08-14 20:35] VITALS: BP 84/42
--- NOTE | 2019-08-14 20:35 | NUR ---
MS RN NOTE HD NURSE REPORTED 1500ML OUTPUT. BP 84/42, HR 104. WILL CONTINUE TO MONITOR.
--- NOTE | 2019-08-14 20:56 | NUR ---
MS RN NOTE PER PATIENTS FAMILY, AND CONFIRMATION WITH PATIENT, SHE DOES NOT WANT TO BE REPOSITIONED OR CHANGED THIS SHIFT. 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 WILL CONTINUE TO MONITOR.
[2019-08-14] MEDS: POLYETHYLENE GLYCOL 3350 17 GM POWD.PACK PO SCH (21:16)
--- NOTE | 2019-08-14 21:17 | NUR ---
MS RN NOTE DID NOT ADMINISTERED SCHEDULED MIRALAX 17G D/T PT REFUSED. ENCOURAGED AND INFORMED HER OF THE BENEFITS AND CONS BUT SHE STILL REFUSED. WILL CONTINUE TO MONITOR.
--- NOTE | 2019-08-14 21:37 | NUR ---
MS RN NOTE ATTEMPTED TO CHANGE PICC LINE DRESSING. PATIENT REFUSED AND WOULD LIKE IT CHANGED IN AM SHIFT. WANTS TO REST AND SLEEP THIS SHIFT. WILL CONTINUE TO MONITOR.
--- NOTE | 2019-08-15 06:20 | NUR ---
MS RN CLOSING NOTE PATIENT IN BED. A/O X4. REMAINS ON MRSA AND ESBL URINE ISOLATION. CONTINUES TO BE ON OXYGEN 2L/MIN VIA NASAL CANNULA. RESPIRATIONS ARE EVEN AND UNLABORED. NO S/S SOB THROGHOUT SHIFT. NO C/O PAIN. NO DISTRESS NOTED. IV ACCESS MAINTAINED IN THOMAS PICC PATENT AND SALINE LOCKED. HD PORT PRESENT, PERMA CATH ON RIGHT IJ, HD OUTPUT 1500ML. KUO CATHETER IS MAINTAINED, DRAINING TO GRAVITY, URINE IS HEMATURIA. URINE OUTPUT 10ML. FLAXASEAL REMAINS PRESENT AND INTACT, OUTPUT BLACK, SOFT 500ml.BED REMAINS LOW AND LOCKED, ON [facility], SIDE RAILS UP X2, HOB ELEVATED 80 DEGREES. CALL LIGHT WITHIN REACH. WILL ENDORSE TO NEXT SHIFT FOR JOSE ROBERTO.
--- NOTE | 2019-08-15 07:59 | NUR ---
MS RN NOTES PATIENT RECEIVED RESTING INSIDE ROOM. SLEEPING, EASILY AROUSABLE THROUGH VERBAL AND TACTILE STIMULI. NO ACUTE DISTRESS AT THIS TIME. KUO CATH IN PLACE WITH DARK RED OUTPUT NOTED ON TUBING, URINE BAG EMPTY. FLEXISEAL IN PLACE. RIGHT IJ PERMACATH IN PLACE WITH DRESSING INTACT. THOMAS PICCLINE IN PLACE, RECEIVED ENDORSEMENT FROM PREVIOUS SHIFT THAT PATIENT REFUSED PICCLINE DRESSING CHANGE LAST NIGHT. MAINTAINED ASPIRATION PRECAUTION. MAINTAINED ISOLATION PRECAUTION. WILL CONTINUE TO MONITOR. BED LOCKED AND IN LOW POSITION. BILATERAL UPPER SIDE RAILS UP AND LOCKED. CALL LIGHT WITHIN EASY REACH
[2019-08-15 08:00] VITALS: BP 100/50
[2019-08-15 08:19] LABS: CREATININE 3.2 mg/dL (0.6-1.3); PHOSPHORUS 3.8 mg/dL (2.5-4.9); POTASSIUM 4.5 mmol/L (3.5-5.1)
[2019-08-15 08:25] LABS: CALCIUM, SERUM 9.6 mg/dL (8.5-10.1)
--- NOTE | 2019-08-15 08:54 | NUR ---
MS RN NOTES PICCLINE DRESSING CHANGED AND PATIENT TOLERATED WELL. IMPORTANCE OF PICCLINE DRESSING MAINTENANCE EXPLAINED TO PATIENT AND PATIENT VERBALIZED UNDERSTANDING. WILL CONTINUE TO MONITOR
[2019-08-15] MEDS: GABAPENTIN 400 MG CAPSULE PO SCH ×3 (09:11→17:35)
[2019-08-15] MEDS: PANTOPRAZOLE 40 MG VIAL IV SCH ×2 (09:11→21:57)
[2019-08-15] MEDS: ASCORBIC ACID 500 MG TABLET PO SCH (09:11)
[2019-08-15] MEDS: SUCRALFATE 1 G TABLET GT SCH ×4 (09:11→21:57)
[2019-08-15] MEDS: predniSONE 20 MG TABLET PO SCH (09:11)
[2019-08-15] MEDS: NEOMY SULF/BACITRAC ZN/POLY 15 GM TUBE TP SCH ×2 (09:14→17:44)
[2019-08-15] MEDS: NYSTATIN TOP POWDER 15 GM BOTTLE TP SCH ×3 (09:14→17:44)
[2019-08-15] MEDS: CLOTRIMAZOLE 1% 15 GM TUBE TP SCH ×2 (09:14→17:43)
[2019-08-15] MEDS: HYDROCODONE/APAP 5/325MG 1 EACH TABLET PO PRN (12:34)
[2019-08-15 16:00] VITALS: BP 107/50
--- NOTE | 2019-08-15 18:53 | NUR ---
MS RN NOTES PATIENT RESTING INSIDE ROOM. AWAKE, ALERT AND ORIENTED X 3, NO ACUTE DISTRESS. NO C/O PAIN OR DISCOMFORT. KUO CATH IN PLACE WITH DARK RED OUTPUT NOTED ON TUBING. FLEXISEAL IN PLACE. PATIENT KEPT CLEAN, DRY AND COMFORTABLE. PROVIDED WITH CALM, SAFE, HAZARD-FREE ENVIRONMENT. MAINTAINED ISOLATION PRECAUTIONS. WILL ENDORSE TO INCOMING SHIFT FOR JOSE ROBERTO. BED LOCKED AND IN LOW POSITION. BILATERAL UPPER SIDE RAILS UP AND LOCKED. CALL LIGHT WITHIN EASY REACH
--- NOTE | 2019-08-15 19:10 | NUR ---
MS RN NOTES RECEIVED PT IN BED AWAKE AND ABLE TO MAKE NEEDS KNOWN WITH FAMILY AT BEDSIDE. PT A/O X3. RESPIRATIONS EVEN AND UNLABORED WITH NO S/S OF ACUTE DISTRESS OR SOB NOTED. NO C/O PAIN OR DISCOMFORT AT THIS TIME. PT WITH KUO CATH IN PLACE AND ALSO WITH FLEXISEAL IN PLACE. PT WITH ISOLATION PRECAUTIONS. SAFETY MEASURES IN PLACE [facility] BED IN LOWEST LOCKED POSITION WITH SIDE RAILS UP X2. CALL LIGHT WITHIN REACH. WILL CONTINUE TO MONITOR.
[2019-08-15 20:00] VITALS: BP 95/43
[2019-08-15] MEDS: POLYETHYLENE GLYCOL 3350 17 GM POWD.PACK PO SCH (22:00)
--- NOTE | 2019-08-15 22:07 | NUR ---
MS RN NOTES PT REFUSED MIRALAX MEDICATION. PT STATED THAT SHE PREFERRED THAT SHE DIDN'T RECEIVED MIRALAX. WILL CONTINUE TO MONITOR.
[2019-08-16 07:46] LABS: BASOPHILS % (AUTO) 0.2 % (0.0-2.0); EOSINOPHILS % (AUTO) 0.6 % (0.0-6.0); HEMATOCRIT 22 % (33-45); HEMOGLOBIN 7.1 g/dL (11.5-14.8); LYMPHOCYTES % (AUTO) 15.8 % (20.0-44.0); MEAN CORPUSCULAR HGB CONC 32 g/dl (31.0-36.0); MEAN CORPUSCULAR VOLUME 100 fL (82-100); MONOCYTES % (AUTO) 6.6 % (2.0-12.0); NEUTROPHILS % (AUTO) 76.8 % (43.0-81.0); PLATELET COUNT (AUTO) 137 /CMM (150-450); RED BLOOD CELL COUNT(AUTO) 2.23 MIL/uL (4.0-5.2); WHITE BLOOD COUNT (AUTO) 24.5 K/uL (4.3-11.0)
[2019-08-16 07:47] LABS: LYMPHOCYTES # (AUTO) 3.9 /CMM (0.8-4.8); MONOCYTES # (AUTO) 1.6 /CMM (0.1-1.30); NEUTROPHILS # (AUTO) 18.8 /CMM (1.8-8.9)
[2019-08-16 08:00] VITALS: BP 99/50
--- NOTE | 2019-08-16 08:02 | NUR ---
MS RN NOTES PT IN BED AWAKE AND ABLE TO MAKE NEEDS KNOWN. PT A/O X3. RESPIRATIONS EVEN AND UNLABORED WITH NO S/S OF ACUTE DISTRESS OR SOB NOTED THROUGHOUT SHIFT. NO C/O PAIN OR DISCOMFORT AT THIS TIME. PT WITH KUO CATH IN PLACE AND ALSO WITH FLEXISEAL IN PLACE. PT WITH ISOLATION PRECAUTIONS. PT KEPT CLEAN, DRY, AND COMFORTABLE. PT REFUSED TURNING Q2 HOURS OVER NIGHT. SAFETY MEASURES IN PLACE WITH BED IN LOWEST LOCKED POSITION WITH SIDE RAILS UP X2. CALL LIGHT WITHIN REACH. WILL ENDORSE TO ONCOMING NURSE FOR JOSE ROBERTO.
[2019-08-16 08:27] LABS: CALCIUM, SERUM 9.7 mg/dL (8.5-10.1); CREATININE 3.9 mg/dL (0.6-1.3); MAGNESIUM 2.1 mg/dL (1.8-2.4); PHOSPHORUS 4.8 mg/dL (2.5-4.9); POTASSIUM 4.9 mmol/L (3.5-5.1)
[2019-08-16] MEDS: predniSONE 20 MG TABLET PO SCH (09:06)
[2019-08-16] MEDS: SUCRALFATE 1 G TABLET GT SCH ×4 (09:06→21:38)
[2019-08-16] MEDS: PANTOPRAZOLE 40 MG VIAL IV SCH ×2 (09:06→21:39)
[2019-08-16] MEDS: ASCORBIC ACID 500 MG TABLET PO SCH (09:06)
[2019-08-16] MEDS: GABAPENTIN 400 MG CAPSULE PO SCH ×3 (09:06→17:00)
[2019-08-16] MEDS: CLOTRIMAZOLE 1% 15 GM TUBE TP SCH ×2 (09:07→17:51)
[2019-08-16] MEDS: NYSTATIN TOP POWDER 15 GM BOTTLE TP SCH ×3 (09:07→17:50)
[2019-08-16] MEDS: NEOMY SULF/BACITRAC ZN/POLY 15 GM TUBE TP SCH ×2 (09:07→17:50)
--- NOTE | 2019-08-16 09:38 | NUR ---
MS RN OPENING NOTES Received patient on 2L o2, no sob noted, patient comfortable on her bed at this time. Patient remains a/o x3 and very alert, F/C and flexageal remains in place at this time. THOMAS PICC line double lumen SL, R IJ HD CATH present. Bed at the lowest setting, call light within reach, side rail up x2.
[2019-08-16 10:11] LABS: EOSINOPHILS % (MANUAL) 3 % (0-4); LYMPHOCYTES % (MANUAL) 11 % (16-48); METAMYELOCYTES % 1 % (0-0); MONOCYTES % (MANUAL) 2 % (0-11.0); MYELOCYTES % 1 % (0-0); NEUTROPHILS % (MANUAL) 82 (42-76)
[2019-08-16] MEDS: HYDROCODONE/APAP 5/325MG 1 EACH TABLET PO PRN (13:27)
[2019-08-16 15:41] VITALS: BP 90/50
--- NOTE | 2019-08-16 17:31 | NUR ---
RN NOTES Patient finished HD at this time. 2,000 mL taken out. Patients vital signs stable. no sob noted.
[2019-08-16] MEDS: PROSOURCE / PROSTAT (PYXIS) 30 ML UDC GT SCH (17:50)
--- NOTE | 2019-08-16 18:06 | NUR ---
RN CLOSING NOTES Patient remains on 2L nasal cannula o2, no sob noted, patient denies pain at this time. Patient easily awakened after her hemo dialysis. Flexageal catheter accidentally removed during cleaning, was not placed back, charge nurse aware. Jacob remains in tact and in place, only has 100 ml of output. HD has 2000 mL output. Bandar transfer awaiting at this time. Bed at the lowest setting, call light within reach of patient, side rails up x2. Will give report to NOC RN for JOSE ROBERTO bedside.
--- NOTE | 2019-08-16 19:10 | NUR ---
RN CLOSING NOTES RECEIVE DPT IN BED ASLEEP BUT EASILY AWOKEN VERBALLY OR BY TOUCH. PT A/O X3 AND ABLE TO MAKE NEEDS KNOWN. RESPIRATIONS EVEN AND UNLABORED WITH NO S/S OF ACUTE DISTRESS OR SOB NOTED. PT ON 2L O2 VIA NC AND TOLERATING WELL. PT NOTED WITH FLEX CATH REMOVED, CHARGE NURSE AWARE. PT ALSO WITH FC IN PLACE. PT S/P HD. SAFETY MEASURES IN PLACE WITH BED IN LOWEST LOCKED POSITION WITH SIDE RAILS UP X2. CALL LIGHT WITHIN REACH. WILL CONTINUE TO MONITOR. Addendum: 08/17/19 at 0643 by HERMINIA PORTILLO RN OPENING NOTES
[2019-08-16 20:00] VITALS: BP 85/47
[2019-08-16] MEDS: POLYETHYLENE GLYCOL 3350 17 GM POWD.PACK PO SCH (21:39)
--- NOTE | 2019-08-16 21:39 | NUR ---
MS RN NOTES PT REFUSED MIRALAX MEDICATION. PT STATED THAT SHE PREFERRED THAT SHE DIDN'T RECEIVED MIRALAX TONIGHT. WILL CONTINUE TO MONITOR.
[2019-08-16 23:00] VITALS: BP 103/59
[2019-08-16 23:28] LABS: HEMOGLOBIN 7.4 g/dL (11.5-14.8)
--- NOTE | 2019-08-16 23:49 | NUR ---
MS RN NOTES PT NOTED WITH DARK HORTENSIA URINE IN FC WELL DARK STOOL AND BLEEDING FROM RECTUM CLEANING/CHANGING PT. CHARGE NURSE AND MD MADE AWARE. MD WITH NEW ORDERS FOR STAT H/H. H/H DRAWN AND AWAITING RESULTS. WILL CONTINUE TO MONITOR.
--- NOTE | 2019-08-17 01:45 | NUR ---
MS RN NOTES LAB VALUES BACK H/H 7.02/28 UP FROM EARLIER OF 7.11/29. MD MADE AWARE WITH NO NEW ORDERS. WILL CONTINUE TO MONITOR.
--- NOTE | 2019-08-17 06:43 | NUR ---
MS RN NOTES PT IN BED ASLEEP BUT EASILY AWOKEN VERBALLY OR BY TOUCH. PT A/O X3 AND ABLE TO MAKE NEEDS KNOWN. RESPIRATIONS EVEN AND UNLABORED WITH NO S/S OF ACUTE DISTRESS OR SOB NOTED. PT ON 2L O2 VIA NC AND TOLERATING WELL. PT WITH FC IN PLACE DRAINING HORTENSIA GONSALEZ MD AWARE. PT S/P HD 2000 OUT. PT KEPT CLEAN, DRY, AND COMFORTABLE. PT TURNED Q2 HOURS THROUGHOUT SHIFT. SAFETY MEASURES IN PLACE WITH BED IN LOWEST LOCKED POSITION WITH SIDE RAILS UP X2. CALL LIGHT WITHIN REACH. WILL ENDORSE TO ONCOMING NURSE FOR JOSE ROBERTO.
[2019-08-17 07:07] LABS: BASOPHILS % (AUTO) 0.2 % (0.0-2.0); EOSINOPHILS % (AUTO) 0.5 % (0.0-6.0); HEMATOCRIT 23 % (33-45); HEMOGLOBIN 7.2 g/dL (11.5-14.8); LYMPHOCYTES # (AUTO) 2.5 /CMM (0.8-4.8); LYMPHOCYTES % (AUTO) 12.8 % (20.0-44.0); MEAN CORPUSCULAR HGB CONC 32 g/dl (31.0-36.0); MEAN CORPUSCULAR VOLUME 101 fL (82-100); MONOCYTES # (AUTO) 1.4 /CMM (0.1-1.30); MONOCYTES % (AUTO) 7.2 % (2.0-12.0); NEUTROPHILS # (AUTO) 15.3 /CMM (1.8-8.9); NEUTROPHILS % (AUTO) 79.3 % (43.0-81.0); PLATELET COUNT (AUTO) 116 /CMM (150-450); RED BLOOD CELL COUNT(AUTO) 2.24 MIL/uL (4.0-5.2); WHITE BLOOD COUNT (AUTO) 19.3 K/uL (4.3-11.0)
--- NOTE | 2019-08-17 07:37 | NUR ---
RN MS OPENING NOTES Received patient on 2l nasal cannula, no sob noted, patient denies pain at this time. Jacob cath remains in place and is draining. Patient sleeping comfortable and is easily awakened. THOMAS picc line double lumen and R IJ HD cath. Bed at the lowest setting, call light within reach, side rails up x2.
[2019-08-17 08:00] VITALS: BP 86/47
[2019-08-17] MEDS: SUCRALFATE 1 G TABLET GT SCH ×3 (08:12→16:49)
[2019-08-17] MEDS: predniSONE 20 MG TABLET PO SCH (08:12)
[2019-08-17] MEDS: ASCORBIC ACID 500 MG TABLET PO SCH (08:12)
[2019-08-17] MEDS: NEOMY SULF/BACITRAC ZN/POLY 15 GM TUBE TP SCH ×2 (08:13→16:50)
[2019-08-17] MEDS: CLOTRIMAZOLE 1% 15 GM TUBE TP SCH ×2 (08:13→16:50)
[2019-08-17] MEDS: PANTOPRAZOLE 40 MG VIAL IV SCH (08:13)
[2019-08-17] MEDS: NYSTATIN TOP POWDER 15 GM BOTTLE TP SCH ×3 (08:13→16:50)
[2019-08-17] MEDS: GABAPENTIN 400 MG CAPSULE PO SCH ×3 (08:13→16:49)
[2019-08-17] MEDS: PROSOURCE / PROSTAT (PYXIS) 30 ML UDC GT SCH (08:22)
[2019-08-17] MEDS: HYDROCODONE/APAP 5/325MG 1 EACH TABLET PO PRN (15:25)
[2019-08-17 16:00] VITALS: BP 92/43
--- NOTE | 2019-08-17 18:45 | NUR ---
RN MS CLOSING NOTES Patient remains on 2L o2 nasal cannula, no sob noted, patient denies pain at this time. Patient remains with THOMAS #picc line double lumen, and a R IJ HD cath. Patient pending discharge at this time. Report given to jesse. Bed at the lowest setting, call light within reach, side rails up x2. Will give report to EILEEN RN for JOSE ROBERTO bedside.
--- NOTE | 2019-08-17 20:15 | NUR ---
RN NOTES PT. LEFT VIA AMBULANCE, DENIES PAIN , NOT IN DISTRESS.. PICC LINE IN PLACE.. V/S STABLE.. DISCHARGE INSTRUCTIONS WAS GIVEN BY THE DAYSHIFT NURSE .. PT. NEEDS ATTENDED
[2019-08-18] MEDS ORDERED: predniSONE 10 MG TABLET PO SCH (09:00)
== END 2019-08-17 20:15 | DRG 853 ==
LOC: ER 19:09 → MEDSG2 21:53 → MED 07-19 20:40 → TELE 07-19 20:45 → MED 07-21 07:07 → ICU 07-22 17:47 → TELE 08-07 22:27 → MED 08-08 08:08
PROVIDERS: ADMIT Registered Nurse; ATTEND Internal Medicine
PROC: 5A1935Z Respiratory Ventilation, Less than 24 Consecutive Hours (ICD-10-PCS; 2019-07-16)
PROC: 5A1D70Z Performance of Urinary Filtration, Intermittent, Less than 6 Hours Per Day (ICD-10-PCS; 2019-07-16)
PROC: 05HM33Z Insertion of Infusion Device into Right Internal Jugular Vein, Percutaneous Approach (ICD-10-PCS; 2019-07-21)
PROC: 0HBU0ZX Excision of Left Breast, Open Approach, Diagnostic (ICD-10-PCS; 2019-07-21)
PROC: 30233N1 Transfusion of Nonautologous Red Blood Cells into Peripheral Vein, Percutaneous Approach (ICD-10-PCS; 2019-07-21)
PROC: 5A1D70Z Performance of Urinary Filtration, Intermittent, Less than 6 Hours Per Day (ICD-10-PCS; 2019-07-22)
PROC: B543ZZA Ultrasonography of Right Jugular Veins, Guidance (ICD-10-PCS; 2019-07-22)
PROC: B548ZZA Ultrasonography of Superior Vena Cava, Guidance (ICD-10-PCS; 2019-07-22)
PROC: 02HV33Z Insertion of Infusion Device into Superior Vena Cava, Percutaneous Approach (ICD-10-PCS; 2019-07-22)
PROC: 0DB78ZX Excision of Stomach, Pylorus, Via Natural or Artificial Opening Endoscopic, Diagnostic (ICD-10-PCS; principal; 2019-07-31)
PROC: 0DBN8ZX Excision of Sigmoid Colon, Via Natural or Artificial Opening Endoscopic, Diagnostic (ICD-10-PCS; principal; 2019-07-31)
PROC: 0BH17EZ Insertion of Endotracheal Airway into Trachea, Via Natural or Artificial Opening (ICD-10-PCS; principal; 2019-07-31)
PROC: 0DBP8ZX Excision of Rectum, Via Natural or Artificial Opening Endoscopic, Diagnostic (ICD-10-PCS; principal; 2019-07-31)
PROC: 30233R1 Transfusion of Nonautologous Platelets into Peripheral Vein, Percutaneous Approach (ICD-10-PCS; 2019-08-01)
PROC: 30233M1 Transfusion of Nonautologous Plasma Cryoprecipitate into Peripheral Vein, Percutaneous Approach (ICD-10-PCS; 2019-08-05)
DX: A41.9 Sepsis, unspecified organism (principal); N17.0 Acute kidney failure with tubular necrosis; R53.2 Functional quadriplegia; R65.21 Severe sepsis with septic shock; G92 Toxic encephalopathy; J18.9 Pneumonia, unspecified organism; E44.0 Moderate protein-calorie malnutrition; D68.59 Other primary thrombophilia; J45.901 Unspecified asthma with (acute) exacerbation; Z68.44 Body mass index [BMI] 60.0-69.9, adult; I87.311 Chronic venous hypertension (idiopathic) with ulcer of right lower extremity; J90 Pleural effusion, not elsewhere classified; J98.11 Atelectasis; F05 Delirium due to known physiological condition; E27.40 Unspecified adrenocortical insufficiency; J81.1 Chronic pulmonary edema; N39.0 Urinary tract infection, site not specified; N61.0 Mastitis without abscess; E86.0 Dehydration; E66.01 Morbid (severe) obesity due to excess calories; Z88.2 Allergy status to sulfonamides; Z88.8 Allergy status to other drugs, medicaments and biological substances; Z79.01 Long term (current) use of anticoagulants; Z79.899 Other long term (current) drug therapy; Z79.51 Long term (current) use of inhaled steroids; E87.5 Hyperkalemia; D64.9 Anemia, unspecified; B35.1 Tinea unguium; G89.29 Other chronic pain; L30.4 Erythema intertrigo; K76.0 Fatty (change of) liver, not elsewhere classified; S91.309A Unspecified open wound, unspecified foot, initial encounter; X58.XXXA Exposure to other specified factors, initial encounter; Y92.049 Unspecified place in boarding-house as the place of occurrence of the external cause; L97.519 Non-pressure chronic ulcer of other part of right foot with unspecified severity; Z74.01 Bed confinement status; L98.9 Disorder of the skin and subcutaneous tissue, unspecified; Z80.3 Family history of malignant neoplasm of breast; L89.152 Pressure ulcer of sacral region, stage 2; L89.222 Pressure ulcer of left hip, stage 2; I87.301 Chronic venous hypertension (idiopathic) without complications of right lower extremity; M79.2 Neuralgia and neuritis, unspecified; Z91.81 History of falling; S70.322A Blister (nonthermal), left thigh, initial encounter; Y92.099 Unspecified place in other non-institutional residence as the place of occurrence of the external cause; I12.9 Hypertensive chronic kidney disease with stage 1 through stage 4 chronic kidney disease, or unspecified chronic kidney disease; D69.6 Thrombocytopenia, unspecified; R26.9 Unspecified abnormalities of gait and mobility; G47.33 Obstructive sleep apnea (adult) (pediatric); Z85.841 Personal history of malignant neoplasm of brain; Z74.09 Other reduced mobility; I87.2 Venous insufficiency (chronic) (peripheral); K59.00 Constipation, unspecified; N18.9 Chronic kidney disease, unspecified; B95.2 Enterococcus as the cause of diseases classified elsewhere; B96.1 Klebsiella pneumoniae [K. pneumoniae] as the cause of diseases classified elsewhere; B95.62 Methicillin resistant Staphylococcus aureus infection as the cause of diseases classified elsewhere; D50.9 Iron deficiency anemia, unspecified; D75.89 Other specified diseases of blood and blood-forming organs; K29.70 Gastritis, unspecified, without bleeding; K64.9 Unspecified hemorrhoids; K20.9 Esophagitis, unspecified; K44.9 Diaphragmatic hernia without obstruction or gangrene; K29.80 Duodenitis without bleeding; K62.89 Other specified diseases of anus and rectum; K52.9 Noninfective gastroenteritis and colitis, unspecified; K27.9 Peptic ulcer, site unspecified, unspecified as acute or chronic, without hemorrhage or perforation
CPT/HCPCS: 31720; 36415; 36569; 36600; 71045-TC; 71250-TC; 74018; 76642-TC; 76700-TC; 76770-TC; 80048-TC; 80053-TC; 80061-TC; 80076-TC; 81000-TC; 82247-TC; 82248-TC; 82272-TC; 82378; 82533; 82550-TC; 82570-TC; 82728-TC; 82784; 82803-TC; 83520; 83540-TC; 83605-TC; 83735-TC; 83970; 84100-TC; 84155; 84155-TC; 84165; 84300-TC; 84439-TC; 84443-TC; 84703-TC; 85025-TC; 85027-TC; 85385-TC; 85396; 85610-TC; 85613; 85652-TC; 85670; 85705; 85730-TC; 85732; 86225; 86235; 86256; 86300; 86334; 86706; 86803; 86850-TC; 86921-TC; 87040-TC; 87070-TC; 87081-TC; 87086-TC; 87186-TC; 87340; 87806; 88305-TC; 88312-TC; 88313-TC; 88342; 90935-TC; 92526; 92611-TC; 93971-TC; 94002-TC; 94003-TC; 94760-TC; 94799-TC; 97110-TC; 97112-TC; 97530-TC; 99082-TC; A4216; A6253; A6403; C1751; C9113; G0378; J0692; J1200; J1644; J1720; J2020; J2185; J2250; J2270; J2405; J2543; J2704; J2916; J2930; J2997; J3370; J3490; J7030; J7040; J7050; J7060; P9012; P9016-BL; P9034-BL; P9047; Q0163; Q9967